=== PATIENT | male | born 1945 | race Caucasian/White ===

== ENCOUNTER 2017-07-09 19:36 | Inpatient (IN) | payer MEDICARE, OTHER, SELFPAY ==
[2017-07-09] VITALS (9 sets, daily range): BP systolic 113–157; BP diastolic 42–89; PULSE 108–122; RESP 14–20; TEMP 36.8–39.4; O2SAT 92–98; BMI 24.9; BMI 24.3
--- NOTE | 2017-07-09 20:05 | EKG12_ITS ---
Test Reason : SOB Blood Pressure : / mmHG Vent. Rate : 115 BPM Atrial Rate : 115 BPM P-R Int : 162 ms QRS Dur : 074 ms QT Int : 306 ms P-R-T Axes : 077 073 067 degrees QTc Int : 423 ms Sinus tachycardia Otherwise normal ECG Confirmed by LANE NARAYANAN ([id number]), deputy editor in chief ARUN SANCHEZ ([id number] on 07/14/2017 1:58:16 PM Referred By: FLORIN Confirmed By:LANE NARAYANAN
--- NOTE | 2017-07-09 20:05 | RAD_ITS ---
STUDY: X-RAY CHEST REASON FOR EXAM: Male, 72 years old. Fever, shortness of breath TECHNIQUE: Frontal and lateral views COMPARISON: October 09, 2015 FINDINGS: The lungs are clear and expanded. There is no demonstrated pleural abnormality. Normal size heart. Normal mediastinum and melissa. Normal visualized pulmonary arteries. Normal visualized aortic arch and descending thoracic aorta. Mild degenerative changes of the thoracic spine. Normal visualized ribs, clavicles, and shoulders. There is no demonstrated abnormality of the visualized soft tissue structures of the upper abdomen. RAD/Chest PA and Lateral IMPRESSION: Normal x-ray examination of the chest. Electronically Signed: Faisal Peralta DO at 21:23 EDT Tel [phone], Service support ,
[2017-07-09 20:23] LABS: Absolute Lymphocyte Count 0.49 X10^3/ul (0.83-4.51); Absolute Neutrophil Count 6.7 X10^3/uL (2.0-7.7); Basophil# 0.01 X10^3/uL; Basophil% 0.1 % (0-1); Eosinophil# 0.02 X10^3/uL; Eosinophils% 0.2 % (0-5); Hematocrit 41.1 % (40-54); Hemoglobin 13.6 g/dl (13.0-16.5); International Normalized Ratio 1.1; Lymphocyte # 0.49 X10^3/ul (4.0); Lymphocyte % 5.8 % (19-41); Mean Corp Hgb Conc 33.1 g/gl (32-36); Mean Corpuscular Hgb 30.5 pg (27.0-32.0); Mean Corpuscular Volume 92.2 fL (80-94); Monocyte# 1.19 X10^3/uL; Monocyte% 14.1 % (0-10); Neutrophil # 6.72 X10^3/uL (2.7-7.7); Neutrophil % 79.7 % (47-70); Partial Thromboplast Time 37.9 Seconds (24.1-36.2); Platelet Count 171 K/mm3 (150-450); Prothrombin Time (Protime)PT. 14.3 SECONDS (11.7-14.9); RBC Distribution Width CV 13.2 % (11.6-14.6); RBC Distribution Width SD 44.2 fl (35.1-43.9); Red Blood Count 4.46 M/mm3 (4.6-6.2); White Blood Count 8.4 K/mm3 (4.4-11.0)
[2017-07-09 20:24] LABS: Differential Indicated SCAN CRITERIA MET; POSITIVE COUNT NO; POSITIVE DIFFERENTIAL YES; POSITIVE MORPHOLOGY NO
[2017-07-09] MEDS: Ipratropium/Albuterol Sulfate 3 ML AMPUL.NEB INHALATION (20:34)
[2017-07-09] MEDS: Albuterol 2.5 MG/3 ML VIAL.NEB. INHALATION ×2 (20:34)
[2017-07-09 20:48] LABS: Differential Comment SCANNED
[2017-07-09] MEDS: 0.9% Normal Saline 1,000 ML 150 ML IV (20:52)
[2017-07-09] MEDS: Acetaminophen 500 MG Tablet 1000 MG PO (20:52)
[2017-07-09 20:56] LABS: AST(SGOT) 14 U/L (15-37); Alanine Aminotransfer ALT/SGPT 14 U/L (16-61); Albumin, Serum 3.5 g/dL (3.2-5.0); Alkaline Phosphatase 52 U/L (45-117); Anion Gap 9 (5-15); BUN 22 mg/dL (7-18); BUN/Creat Ratio 20.8 RATIO (10-20); Calcium,Total 8.5 mg/dL (8.5-10.1); Chloride 105 mmol/L (98-107); Creatinine, Serum 1.06 mg/dL (0.70-1.30); EST Glomerular Filtration Rate 73 mL/min (>60); Est Glom Filt Rate - Afr Amer 89 mL/min (>60); Estimated Creatinine Clearance 66.95 ml/min; Globulin 3.5 g/dL (2.2-4.2); Glucose 100 mg/dL (74-106); Sodium Level 139 mmol/L (136-145)
[2017-07-09 21:35] LABS: Bacteria 0 SEEN /hpf (None Seen); Squamous Epithelial Cells - UA 0 SEEN /hpf (0-5)
[2017-07-09 21:52] LABS: Color, Urine Yellow (Yellow); Glucose, Dipstick Normal (Normal); Ketone-Dipstick Negative (Negative); Leukocyte Esterase-Dipstick 25 /ul (Negative); Nitrite-Dipstick Negative (Negative); Occult Blood-Urine 10 /ul (Negative); Protein-Dipstick Negative (Negative); Urine Bilirubin Dipstick Negative (Negative); Urine Clarity Clear (Clear); Urine Urobilinogen Normal (Normal)
[2017-07-09 22:06] LABS: Mucous, Urine 1+ /hpf (<or=2+)
[2017-07-09 22:07] LABS: White Blood Cells 0-5 SEEN /hpf (0-5)
[2017-07-09 22:08] LABS: Red Blood Cells-Urine 0-5 SEEN /hpf (0-5)
--- NOTE | 2017-07-09 22:22 | PCM.HP.STD ---
Problem List (1) Tobacco use Status: Chronic (2) COPD exacerbation Status: Acute (3) Sepsis Status: Acute Qualifiers: Sepsis type: sepsis due to unspecified organism Qualified Code(s): A41.9 - Sepsis, unspecified organism (4) History of bladder cancer Status: Chronic (5) Chronic obstructive lung disease Status: Chronic Qualifiers: Emphysema type: unspecified History of Present Illness Date of Admission: 07/09/17 Chief Complaint: Dyspnea, cough, wheezing The patient is a 72 y/o M w/ PMHx: Bladder CA s/p resection, Ongoing Tobacco use, Chronic COPD who presents to the [facility] ED on 07/09/17 with history of ongoing dry cough, dyspnea, wheezing with subjective fever and chills as well as mild headache x 24 hours without associated body aches or chills. In the ED work-up includes T 102.9, HR 120, BP 154/89, RR 19, 96% on RA, CBC w/ WBC 8.4, Hgb 13.6, Plts 171 without marked L shift, coags not marked, CMP not marked, LA 1.0, UA not marked, CXR without marked findings. In the ED patient administered NS bolus, tamiflu, solumedrol, azithromcyin, duoneb, albuterol and tylenol with some improvement with tachycardia and fever reduction. Past Medical History Past Medical History (Chronic Problems): Chronic Problems Tobacco use (Chronic) History of tobacco use (Chronic) History of bladder cancer (Chronic) Chronic obstructive lung disease (Chronic) Allergies No Known Allergies Allergy (Verified 07/09/17 19:38) Home Medications: Ambulatory Orders Medication Instructions Recorded Albuterol Aerosols [Ventolin 2.5 mg INHALATION Q4H PRN PRN 07/09/17 Aerosols] Surgical History: - - Bladder CA resection, T+A. Psychiatric History: No pertinent psych hx Lives: Spouse/ Significant Other Smoking Status: Current every day smoker - 1/2 ppd. Tobacco Use: Cigarettes Alcohol: Occasional Drugs: None - *Family History Maternal History Items: - - Mother with history of chronic COPD with concurrent tobacco usage. Paternal History Items: - - Father with history of prostate cancer and chronic COPD with concurrent tobacco use history. Review of Systems Constitutional: Reports: Anorexia, Chills, Fever, Malaise, Weakness, Fatigue. Denies: Weight Change HEENT: Denies: Head Aches, Sinus Congestion, Sinus Drainage Cardiovascular: Reports: Chest Tightness. Denies: Chest Pain, Palpitations Respiratory: Reports: Cough, Shortness of Breath, Shortness of breath at rest, Shortness of breath upon exertion, Wheezing. Denies: Sputum production Gastrointestinal: Denies: Abdominal Pain, Nausea, Vomiting Genitourinary: Denies: Dysuria Musculoskeletal: Denies: Joint Pain, Joint Tenderness Skin: Denies: Rash, Wounds Neurological: Denies: Numbness, Tingling, Focal weakness Psychiatric: Denies: Anxiety, Depression, Homicidal Ideations, Suicidal Ideations Hematologic/ Lymphatic: Denies: Easy Bruising, Easy Bleeding VTE Information - Inpt Only VTE Present on Admission: No VTE Mechan Device Prophylaxis: SCD's VTE Pharm Prophylaxis ordered?: Yes Patient Problems: Active and Suspected Problems COPD exacerbation (Acute) Sepsis (Acute) Subjective: Seated upright in the ED bed, fatigued appearing, some dry coughing. Objective: Physical Examination: General: awake, alert, oriented x 3 and cooperative, seated upright in the ED bed in no apparent distress, fatigued appearing. Skin: normal color, turgor, no icterus, cyanosis. HEENT: AT/NC, EOMI, PERRLA, dry MM, no carotid bruits or JVD noted. Lungs: Severely diffusely diminished BS, dry coughing w/ increased effort, no wheezing, poor movement. Heart: Tachycardic with regular rhythm; no gallop, rub audible. Abdomen: soft, NTTP, ND, normal BS, no HSM. Extremities: no cyanosis, clubbing, or edema. Neurological: patient awake, alert, oriented x 3; cognitive function intact; pupils equally reactive to light and accomodation; cranial nerves II-XII grossly normal, moving all 4 extremities, no focal deficits, strength severely globally decreased secondary to acute presentation. Psychiatric: affect appears fatigued, no acute evidence of depressive or anxiety feelings. - Physical Exam Vital Signs Temp Pulse Resp BP Pulse Ox 102.9 F H 118 H 14 146/70 H 98 07/09/17 20:14 07/09/17 22:06 07/09/17 22:06 07/09/17 22:06 07/09/17 22:06 Oxygen Flow Rate (L/min) 2 Oxygen Delivery Method Room Air Weight: 173 lb 8.061 oz Body Mass Index (BMI) 24.9 Microbiology Past 72 Hours 07/09/17 20:20 Influenza Types A,B Direct FA (PERRY) - Final Mucosa - Nose Laboratory Tests Past 24 Hrs 07/09/17 07/09/17 07/09/17 19:45 19:45 19:45 WBC 8.4 RBC 4.46 L Hgb 13.6 Hct 41.1 MCV 92.2 MCH 30.5 MCHC 33.1 RDW 13.2 RDW Differential 44.2 H Plt Count 171 MPV 11.0 Immature Gran % (Auto) 0.100 Neut % (Auto) 79.7 H Lymph % (Auto) 5.8 L [place] % (Auto) 14.1 H Eos % (Auto) 0.2 Baso % (Auto) 0.1 Absolute Neuts (auto) 6.7 Absolute Lymphs (auto) 0.49 L Total Counted Not Reportable Differential Comment SCANNED PT 14.3 INR 1.1 APTT 37.9 H Sodium 139 Potassium 4.0 Chloride 105 Carbon Dioxide 25.0 Anion Gap 9 BUN 22 H Creatinine 1.06 Estim Creat Clear Calc 66.95 Est GFR (MDRD) Af Amer 89 Est GFR (MDRD) Non-Af 73 BUN/Creatinine Ratio 20.8 H Glucose 100 Lactic Acid Calcium 8.5 Total Bilirubin 0.30 AST 14 L ALT 14 L Alkaline Phosphatase 52 Troponin I < 0.02 Total Protein 7.0 Albumin 3.5 Globulin 3.5 Albumin/Globulin Ratio 1.0 Urine Color Urine Clarity Urine pH Ur Specific [place] Urine Protein Urine Glucose (UA) Urine Ketones Urine Occult Blood Urine Nitrite Urine Bilirubin Urine Urobilinogen Ur Leukocyte Esterase Urine RBC Urine WBC Ur Squamous Epith Cells Urine Bacteria Urine Mucus 07/09/17 07/09/17 20:10 Unknown WBC RBC Hgb Hct MCV MCH MCHC RDW RDW Differential Plt Count MPV Immature Gran % (Auto) Neut % (Auto) Lymph % (Auto) [place] % (Auto) Eos % (Auto) Baso % (Auto) Absolute Neuts (auto) Absolute Lymphs (auto) Total Counted Differential Comment PT INR APTT Sodium Potassium Chloride Carbon Dioxide Anion Gap BUN Creatinine Estim Creat Clear Calc Est GFR (MDRD) Af Amer Est GFR (MDRD) Non-Af BUN/Creatinine Ratio Glucose Lactic Acid 1.0 Calcium Total Bilirubin AST ALT Alkaline Phosphatase Troponin I Total Protein Albumin Globulin Albumin/Globulin Ratio Urine Color Yellow Urine Clarity Clear Urine pH 5.0 Ur Specific [place] 1.020 Urine Protein Negative Urine Glucose (UA) Normal Urine Ketones Negative Urine Occult Blood 10 H Urine Nitrite Negative Urine Bilirubin Negative Urine Urobilinogen Normal Ur Leukocyte Esterase 25 H Urine RBC 0-5 SEEN Urine WBC 0-5 SEEN Ur Squamous Epith Cells 0 SEEN Urine Bacteria 0 SEEN Urine Mucus 1+ Assessment/Plan Active and Suspected Problems COPD exacerbation (Acute) Sepsis (Acute) The patient is a 72 y/o M w/ PMHx: Bladder CA s/p resection, Ongoing Tobacco use, Chronic COPD who presents to the [facility] ED on 07/09/17 with history of ongoing dry cough, dyspnea, wheezing with subjective fever and chills as well as mild headache x 24 hours without associated body aches or chills. (1) Acute Sepsis secondary to Acute on chronic COPD exacerbation: CXR w/ chronic changes, CBC on admission w/o marked WBC elevation or shift. Will admit to PCU, maintain on oxygen with wean as tolerated to room air, continue ATC duonebs, PRN albuterol, IV methylprednisolone, HOB, IS parameters, IV Azithromcyin with pending sputum cultures, maintain on tamiflu pending respiratory viral panel results, if unremarkable will d/c. (2) Tobacco Abuse: Encouraged cessation, inpatient consultation per RT, NR if desired. (3) Bladder Cancer, Hx: s/p resection, stable. (4) DVT Prophylaxis: SCDs, lovenox. Code Visit Inpatient E&M: 31507 Init Hosp L3
--- NOTE | 2017-07-09 22:25 | HP.PCM_ITS ---
Problem List (1) Tobacco use Status: Chronic (2) COPD exacerbation Status: Acute (3) Sepsis Status: Acute Qualifiers: Sepsis type: sepsis due to unspecified organism Qualified Code(s): A41.9 - Sepsis, unspecified organism (4) History of bladder cancer Status: Chronic (5) Chronic obstructive lung disease Status: Chronic Qualifiers: Emphysema type: unspecified History of Present Illness Date of Admission: 07/09/17 Chief Complaint: Dyspnea, cough, wheezing The patient is a 72 y/o M w/ PMHx: Bladder CA s/p resection, Ongoing Tobacco use , Chronic COPD who presents to the [facility] ED on 07/09/17 with history of ongoing dry cough, dyspnea, wheezing with subjective fever and chills as well as mild headache x 24 hours without associated body aches or chills. In the ED work-up includes T 102.9, HR 120, BP 154/89, RR 19, 96% on RA, CBC w/ WBC 8.4, Hgb 13.6 , Plts 171 without marked L shift, coags not marked, CMP not marked, LA 1.0, UA not marked, CXR without marked findings. In the ED patient administered NS bolus , tamiflu, solumedrol, azithromcyin, duoneb, albuterol and tylenol with some improvement with tachycardia and fever reduction. Past Medical History Past Medical History (Chronic Problems): Chronic Problems Tobacco use (Chronic) History of tobacco use (Chronic) History of bladder cancer (Chronic) Chronic obstructive lung disease (Chronic) Allergies No Known Allergies Allergy (Verified 07/09/17 19:38) Home Medications: Ambulatory Orders Medication Instructions Recorded Albuterol Aerosols [Ventolin 2.5 mg INHALATION Q4H PRN PRN 07/09/17 Aerosols] Surgical History: - - Bladder CA resection, T+A. Psychiatric History: No pertinent psych hx Lives: Spouse/ Significant Other Smoking Status: Current every day smoker - 1/2 ppd. Tobacco Use: Cigarettes Alcohol: Occasional Drugs: None - *Family History Maternal History Items: - - Mother with history of chronic COPD with concurrent tobacco usage. Paternal History Items: - - Father with history of prostate cancer and chronic COPD with concurrent tobacco use history. Review of Systems Constitutional: Reports: Anorexia, Chills, Fever, Malaise, Weakness, Fatigue. Denies: Weight Change HEENT: Denies: Head Aches, Sinus Congestion, Sinus Drainage Cardiovascular: Reports: Chest Tightness. Denies: Chest Pain, Palpitations Respiratory: Reports: Cough, Shortness of Breath, Shortness of breath at rest, Shortness of breath upon exertion, Wheezing. Denies: Sputum production Gastrointestinal: Denies: Abdominal Pain, Nausea, Vomiting Genitourinary: Denies: Dysuria Musculoskeletal: Denies: Joint Pain, Joint Tenderness Skin: Denies: Rash, Wounds Neurological: Denies: Numbness, Tingling, Focal weakness Psychiatric: Denies: Anxiety, Depression, Homicidal Ideations, Suicidal Ideations Hematologic/ Lymphatic: Denies: Easy Bruising, Easy Bleeding VTE Information - Inpt Only VTE Present on Admission: No VTE Mechan Device Prophylaxis: SCD's VTE Pharm Prophylaxis ordered?: Yes Patient Problems: Active and Suspected Problems COPD exacerbation (Acute) Sepsis (Acute) Subjective: Seated upright in the ED bed, fatigued appearing, some dry coughing. Objective: Physical Examination: General: awake, alert, oriented x 3 and cooperative, seated upright in the ED bed in no apparent distress, fatigued appearing. Skin: normal color, turgor, no icterus, cyanosis. HEENT: AT/NC, EOMI, PERRLA, dry MM, no carotid bruits or JVD noted. Lungs: Severely diffusely diminished BS, dry coughing w/ increased effort, no wheezing, poor movement. Heart: Tachycardic with regular rhythm; no gallop, rub audible. Abdomen: soft, NTTP, ND, normal BS, no HSM. Extremities: no cyanosis, clubbing, or edema. Neurological: patient awake, alert, oriented x 3; cognitive function intact; pupils equally reactive to light and accomodation; cranial nerves II-XII grossly normal, moving all 4 extremities, no focal deficits, strength severely globally decreased secondary to acute presentation. Psychiatric: affect appears fatigued, no acute evidence of depressive or anxiety feelings. - Physical Exam Vital Signs Temp Pulse Resp BP Pulse Ox 102.9 F H 118 H 14 146/70 H 98 07/09/17 20:14 07/09/17 22:06 07/09/17 22:06 07/09/17 22:06 07/09/17 22:06 Oxygen Flow Rate (L/min) 2 Oxygen Delivery Method Room Air Weight: 173 lb 8.061 oz Body Mass Index (BMI) 24.9 Microbiology Past 72 Hours 07/09/17 20:20 Influenza Types A,B Direct FA (PERRY) - Final Mucosa - Nose Laboratory Tests Past 24 Hrs 07/09/17 07/09/17 07/09/17 19:45 19:45 19:45 WBC 8.4 RBC 4.46 L Hgb 13.6 Hct 41.1 MCV 92.2 MCH 30.5 MCHC 33.1 RDW 13.2 RDW Differential 44.2 H Plt Count 171 MPV 11.0 Immature Gran % (Auto) 0.100 Neut % (Auto) 79.7 H Lymph % (Auto) 5.8 L [place] % (Auto) 14.1 H Eos % (Auto) 0.2 Baso % (Auto) 0.1 Absolute Neuts (auto) 6.7 Absolute Lymphs (auto) 0.49 L Total Counted Not Reportable Differential Comment SCANNED PT 14.3 INR 1.1 APTT 37.9 H Sodium 139 Potassium 4.0 Chloride 105 Carbon Dioxide 25.0 Anion Gap 9 BUN 22 H Creatinine 1.06 Estim Creat Clear Calc 66.95 Est GFR (MDRD) Af Amer 89 Est GFR (MDRD) Non-Af 73 BUN/Creatinine Ratio 20.8 H Glucose 100 Lactic Acid Calcium 8.5 Total Bilirubin 0.30 AST 14 L ALT 14 L Alkaline Phosphatase 52 Troponin I < 0.02 Total Protein 7.0 Albumin 3.5 Globulin 3.5 Albumin/Globulin Ratio 1.0 Urine Color Urine Clarity Urine pH Ur Specific [place] Urine Protein Urine Glucose (UA) Urine Ketones Urine Occult Blood Urine Nitrite Urine Bilirubin Urine Urobilinogen Ur Leukocyte Esterase Urine RBC Urine WBC Ur Squamous Epith Cells Urine Bacteria Urine Mucus 07/09/17 07/09/17 20:10 Unknown WBC RBC Hgb Hct MCV MCH MCHC RDW RDW Differential Plt Count MPV Immature Gran % (Auto) Neut % (Auto) Lymph % (Auto) [place] % (Auto) Eos % (Auto) Baso % (Auto) Absolute Neuts (auto) Absolute Lymphs (auto) Total Counted Differential Comment PT INR APTT Sodium Potassium Chloride Carbon Dioxide Anion Gap BUN Creatinine Estim Creat Clear Calc Est GFR (MDRD) Af Amer Est GFR (MDRD) Non-Af BUN/Creatinine Ratio Glucose Lactic Acid 1.0 Calcium Total Bilirubin AST ALT Alkaline Phosphatase Troponin I Total Protein Albumin Globulin Albumin/Globulin Ratio Urine Color Yellow Urine Clarity Clear Urine pH 5.0 Ur Specific [place] 1.020 Urine Protein Negative Urine Glucose (UA) Normal Urine Ketones Negative Urine Occult Blood 10 H Urine Nitrite Negative Urine Bilirubin Negative Urine Urobilinogen Normal Ur Leukocyte Esterase 25 H Urine RBC 0-5 SEEN Urine WBC 0-5 SEEN Ur Squamous Epith Cells 0 SEEN Urine Bacteria 0 SEEN Urine Mucus 1+ Assessment/Plan Active and Suspected Problems COPD exacerbation (Acute) Sepsis (Acute) The patient is a 72 y/o M w/ PMHx: Bladder CA s/p resection, Ongoing Tobacco use , Chronic COPD who presents to the [facility] ED on 07/09/17 with history of ongoing dry cough, dyspnea, wheezing with subjective fever and chills as well as mild headache x 24 hours without associated body aches or chills. (1) Acute Sepsis secondary to Acute on chronic COPD exacerbation: CXR w/ chronic changes, CBC on admission w/o marked WBC elevation or shift. Will admit to PCU, maintain on oxygen with wean as tolerated to room air, continue ATC duonebs, PRN albuterol, IV methylprednisolone, HOB, IS parameters, IV Azithromcyin with pending sputum cultures, maintain on tamiflu pending respiratory viral panel results, if unremarkable will d/c. (2) Tobacco Abuse: Encouraged cessation, inpatient consultation per RT, NR if desired. (3) Bladder Cancer, Hx: s/p resection, stable. (4) DVT Prophylaxis: SCDs, lovenox. Code Visit Inpatient E&M: 00635 Init Hosp L3
[2017-07-09] MEDS: Oseltamivir Phosphate 75 MG Capsule PO (22:49)
[2017-07-09] MEDS: MethylPREDNISolone 125 MG/2 ML Vial IV (22:49)
--- NOTE | 2017-07-09 23:57 | ED.VISSUMM ---
- ER Visit Summary Date of Service: 07/09/17 Chief Complaint: Shortness of breath History of Present Illness: The patient is a 72 M who states that yesterday afternoon he had a gradual onset of shortness of breath. He notes chills rhinorrhea cough nausea. Denies any headache or generalized myalgias. He notes no sputum production. He has a history of COPD and is an avid smoker. He does not wear oxygen at home. Physical Examination: Patient is febrile at 102.9. Heart rate is 121. Respirations are 17. 93% on 2-1/2 L at home. Blood pressure 157/42. Gen: Well-nourished well-developed Head: Normocephalic atraumatic Eyes: Perrl EOMI ENT: TMs clear no rhinorrhea moist mucous membranes Neck: Supple no lymphadenopathy no JVD nontender CVS: Tachycardic regular rate rhythm no murmurs normal S1-S2 Respiratory: No distress patient has expiratory wheezing I laterally chest nontender Abdomen: Soft nontender nondistended normal bowel sounds no masses Back: Nontender Extremity: Nontender no edema Skin: Normal color no rash Neuro: alert orientated ?3 CN II-XII intact normal strength sensation reflexes gait cerebellar Psych: Normal affect normal mood Test Results: Sinus rhythm at a rate of 115. White count 8.4. BUN is 22 and creatinine 1.06. Troponin less than 0.02. Lactic acid is 1. Rapid influenza is negative. Normal coags. Chest x-ray showed chronic changes Emergency Department Course and Treatment: Received breathing treatments supplemental oxygen. Patient continues to have expiratory wheezing. He received Tylenol to reduce his fever continues to be tachycardic. Blood cultures were obtained the patient received a dose of azithromycin and Solu-Medrol. Also will send off serum to flu. Respiratory molecular panel ordered after discussion with hospitalist. Also given a dose of Tamiflu. Impression: 1. COPD exacerbation 2. Viral syndrome This note was generated with [employer] dictation software. It may contain incorrect words, spelling, and punctuation that were not noted in review of the chart prior to signing ED Disposition - Plan for ED Patient: Disposition: Acute Care Hospital [facility] Chief Complaint: Shortness of Breath
[2017-07-10] VITALS (15 sets, daily range): BP systolic 129–146; BP diastolic 70–77; PULSE 89–118; RESP 14–20; TEMP 36.7–37.1; O2SAT 92–98
--- NOTE | 2017-07-10 | ED.DCSUM_ITS ---
- ER Visit Summary Date of Service: 07/09/17 Chief Complaint: Shortness of breath History of Present Illness: The patient is a 72 M who states that yesterday afternoon he had a gradual onset of shortness of breath. He notes chills rhinorrhea cough nausea. Denies any headache or generalized myalgias. He notes no sputum production. He has a history of COPD and is an avid smoker. He does not wear oxygen at home. Physical Examination: Patient is febrile at 102.9. Heart rate is 121. Respirations are 17. 93% on 2-1/2 L at home. Blood pressure 157/42. Gen: Well-nourished well-developed Head: Normocephalic atraumatic Eyes: Perrl EOMI ENT: TMs clear no rhinorrhea moist mucous membranes Neck: Supple no lymphadenopathy no JVD nontender CVS: Tachycardic regular rate rhythm no murmurs normal S1-S2 Respiratory: No distress patient has expiratory wheezing I laterally chest nontender Abdomen: Soft nontender nondistended normal bowel sounds no masses Back: Nontender Extremity: Nontender no edema Skin: Normal color no rash Neuro: alert orientated ?3 CN II-XII intact normal strength sensation reflexes gait cerebellar Psych: Normal affect normal mood Test Results: Sinus rhythm at a rate of 115. White count 8.4. BUN is 22 and creatinine 1.06. Troponin less than 0.02. Lactic acid is 1. Rapid influenza is negative. Normal coags. Chest x-ray showed chronic changes Emergency Department Course and Treatment: Received breathing treatments supplemental oxygen. Patient continues to have expiratory wheezing. He received Tylenol to reduce his fever continues to be tachycardic. Blood cultures were obtained the patient received a dose of azithromycin and Solu- Medrol. Also will send off serum to flu. Respiratory molecular panel ordered after discussion with hospitalist. Also given a dose of Tamiflu. Impression: 1. COPD exacerbation 2. Viral syndrome This note was generated with Add2[employer] dictation software. It may contain incorrect words, spelling, and punctuation that were not noted in review of the chart prior to signing ED Disposition - Plan for ED Patient: Disposition: Acute Care Hospital [facility] Chief Complaint: Shortness of Breath
[2017-07-10 00:07] LABS: Magnesium 1.8 mg/dL (1.6-2.6)
[2017-07-10] MEDS: 0.9% Normal Saline 1,000 ML 125 ML IV ×2 (01:44→07:45)
[2017-07-10] MEDS: 0.9% NaCl Peripheral Flush Adult/Peds IV ×3 (04:54→21:49)
[2017-07-10 06:24] LABS: ALB/GLOB Ratio 0.9 RATIO (0.9-2.4); AST(SGOT) 19 U/L (15-37); Alanine Aminotransfer ALT/SGPT 15 U/L (16-61); Albumin, Serum 3.2 g/dL (3.2-5.0); Alkaline Phosphatase 45 U/L (45-117); Anion Gap 8 (5-15); BUN 19 mg/dL (7-18); BUN/Creat Ratio 18.1 RATIO (10-20); Calcium,Total 8.3 mg/dL (8.5-10.1); Chloride 105 mmol/L (98-107); Creatinine, Serum 1.05 mg/dL (0.70-1.30); EST Glomerular Filtration Rate 74 mL/min (>60); Est Glom Filt Rate - Afr Amer 90 mL/min (>60); Estimated Creatinine Clearance 67.59 ml/min; Globulin 3.4 g/dL (2.2-4.2); Glucose 153 mg/dL (74-106); Potassium 4.2 mmol/L (3.5-5.1); Protein, Total 6.6 g/dL (6.4-8.2); Sodium Level 139 mmol/L (136-145)
[2017-07-10 06:35] LABS: Absolute Lymphocyte Count 0.29 X10^3/ul (0.83-4.51); Absolute Neutrophil Count 6.6 X10^3/uL (2.0-7.7); Basophil# 0.01 X10^3/uL; Basophil% 0.1 % (0-1); Hematocrit 39.6 % (40-54); Hemoglobin 13.2 g/dl (13.0-16.5); Lymphocyte # 0.29 X10^3/ul (4.0); Lymphocyte % 4.1 % (19-41); Mean Corp Hgb Conc 33.3 g/gl (32-36); Mean Corpuscular Hgb 30.8 pg (27.0-32.0); Mean Corpuscular Volume 92.5 fL (80-94); Monocyte# 0.14 X10^3/uL; Neutrophil # 6.62 X10^3/uL (2.7-7.7); Neutrophil % 93.7 % (47-70); Platelet Count 147 K/mm3 (150-450); RBC Distribution Width CV 13.2 % (11.6-14.6); RBC Distribution Width SD 44.3 fl (35.1-43.9); Red Blood Count 4.28 M/mm3 (4.6-6.2); White Blood Count 7.1 K/mm3 (4.4-11.0)
[2017-07-10 06:36] LABS: Differential Indicated SCAN CRITERIA MET; POSITIVE COUNT NO; POSITIVE DIFFERENTIAL YES; POSITIVE MORPHOLOGY NO
[2017-07-10] MEDS: Ipratropium/Albuterol Sulfate 3 ML AMPUL.NEB INHALATION ×4 (06:43→22:58)
[2017-07-10] MEDS: Enoxaparin 40 MG/0.4 ML Syringe SC (09:43)
[2017-07-10] MEDS: Famotidine 20 MG Tablet PO ×2 (09:43→21:49)
[2017-07-10] MEDS: Oseltamivir Phosphate 75 MG Capsule PO (09:43)
[2017-07-10] MEDS: guaiFENesin 1,200 MG Tablet 1200 MG PO ×2 (09:43→21:49)
--- NOTE | 2017-07-10 14:14 | PN_ITS ---
<Miriam Garcia - Last Filed: 07/10/17 14:16> Subjective: Patient seen and examined. States shortness of breath is improved since admission. Complains of continued cough which is beginning to be productive of yellow sputum. Denies further fever, chills. Denies other complaints. - Physical Exam General: Alert, Oriented x3, Cooperative, No apparent distress HEENT: Atraumatic, PERRLA, EOMI, Normocephalic Neck: Supple, No JVD, Negative Carotid Bruits Lungs: Clear to auscultation, Diminished Cardiovascular: Regular Rhythm, Normal S1, Normal S2, No murmurs, Tachycardic Abdomen: Bowel Sounds Present, Soft, Non Tender, Non-Distended Extremities: No clubbing, No cyanosis, No edema, Capillary Refill Less than 3 Seconds Skin: No rashes, No breakdown Musculoskeletal: No Tenderness to Palpation of Joints or Extremities Neurological: Cranial nerves II-XII grossly intact, Neuro grossly intact Psych/Mental Status: Normal Affect, Appropriate Vital Signs Temp Pulse Resp BP Pulse Ox 98.6 F 112 H 20 H 140/70 H 94 07/10/17 09:50 07/10/17 11:33 07/10/17 11:00 07/10/17 09:50 07/10/17 09:50 Oxygen Flow Rate (L/min) 2 Oxygen Delivery Method Room Air Weight: 76.7 kg Body Mass Index (BMI) 24.3 Intake and Output for Last 24 Hours 07/08/17 07/09/17 07/10/17 23:59 23:59 23:59 Intake Total 2006 Balance 2006 Laboratory Tests Past 24 Hrs 07/09/17 07/10/17 07/10/17 Unknown 05:28 05:28 WBC 7.1 RBC 4.28 L Hgb 13.2 Hct 39.6 L MCV 92.5 MCH 30.8 MCHC 33.3 RDW 13.2 RDW Differential 44.3 H Plt Count 147 L MPV 11.0 Immature Gran % (Auto) 0.100 Neut % (Auto) 93.7 H Lymph % (Auto) 4.1 L Graves % (Auto) 2.0 Eos % (Auto) 0.0 Baso % (Auto) 0.1 Absolute Neuts (auto) 6.6 Absolute Lymphs (auto) 0.29 L Total Counted Not Reportable Sodium 139 Potassium 4.2 Chloride 105 Carbon Dioxide 26.0 Anion Gap 8 BUN 19 H Creatinine 1.05 Estim Creat Clear Calc 67.59 Est GFR (MDRD) Af Amer 90 Est GFR (MDRD) Non-Af 74 BUN/Creatinine Ratio 18.1 Glucose 153 H Calcium 8.3 L Total Bilirubin 0.40 AST 19 ALT 15 L Alkaline Phosphatase 45 Total Protein 6.6 Albumin 3.2 Globulin 3.4 Albumin/Globulin Ratio 0.9 Urine Color Yellow Urine Clarity Clear Urine pH 5.0 Ur Specific [place] 1.020 Urine Protein Negative Urine Glucose (UA) Normal Urine Ketones Negative Urine Occult Blood 10 H Urine Nitrite Negative Urine Bilirubin Negative Urine Urobilinogen Normal Ur Leukocyte Esterase 25 H Urine RBC 0-5 SEEN Urine WBC 0-5 SEEN Ur Squamous Epith Cells 0 SEEN Urine Bacteria 0 SEEN Urine Mucus 1+ Assessment/Plan Patient is a 72-year-old male admitted 07/09/2017 due to dyspnea, cough, wheezing. He has a past medical history of bladder cancer status post resection , tobacco dependence, chronic COPD. 1. Acute on chronic COPD exacerbation with associated acute hypoxia- respiratory panel negative. Discontinue Tamiflu. Continue albuterol and DuoNeb aerosol. Continue IV Solu-Medrol. Sputum culture sent and pending. Continue azithromycin pending sputum culture. Continue Mucinex twice daily. Blood cultures pending. Patient now afebrile. He did present with a temperature of 102.9 on admission and tachycardia. Did not meet other sepsis criteria. Continue Tylenol as needed for fever. Patient does not follow with pulmonary as outpatient. Recommend follow-up with pulmonary medicine as outpatient for pulmonary function testing. He is only on albuterol inhaler as needed at home. Patient is now stable on room air. He will need walking pulse ox prior to discharge. Chest x-ray on admission unremarkable. Anticipate transition to oral prednisone tomorrow with possible discharge if continued improvement. 2. Tobacco dependence-encourage smoking cessation. Nicotine replacement patch if desired. 3. History of bladder cancer status post resection DVT prophylaxis-Lovenox subcu. This patient was seen by G[facility] Holland under the supervision of Dr. Pineda. <Damaris Pindea - Last Filed: 07/13/17 20:46> - Physical Exam Vital Signs Temp Pulse Resp BP Pulse Ox 97.9 F 99 16 140/84 H 97 07/11/17 09:56 07/11/17 10:36 07/11/17 10:36 07/11/17 09:56 07/11/17 10:04 Oxygen Flow Rate (L/min) 2 Oxygen Delivery Method Room Air Weight: 169 lb 1.513 oz Body Mass Index (BMI) 24.3 Intake and Output for Last 24 Hours 07/11/17 07/12/17 07/13/17 23:59 23:59 23:59 Intake Total 60 / 60 Balance 60 / 60 Microbiology Past 72 Hours 07/10/17 07:45 Gram Stain - Final Sputum, Expectorated/Coughed Respiratory Culture - Final Code Visit Inpatient E&M: 54135 Subs Hosp L2
--- NOTE | 2017-07-10 15:50 | CASEMGMT ---
Face to Face with patient for initial transition planning/care coordination assessment. HILLARY PLEITEZ introduced self and role at [facility], pt voices understanding and consents to assessment at this time. Pt sitting up on side of bed in no distress at this time. Pt A/Ox4 at this time and answers all questions appropriately at this time. Care providers, pharmacy, and demographics verified. See attached link. Pt voices no further concerns/needs at this time. Advised pt to ask for CM if any further questions/concerns/needs arise, voices understanding. PLAN: [place] HILLARY PLEITEZ
[2017-07-11] VITALS (7 sets, daily range): BP systolic 124–140; BP diastolic 65–84; PULSE 75–99; RESP 16–18; TEMP 36.3–36.6; O2SAT 94–97
[2017-07-11] MEDS: 0.9% NaCl Peripheral Flush Adult/Peds IV (05:37)
[2017-07-11] MEDS: Ipratropium/Albuterol Sulfate 3 ML AMPUL.NEB INHALATION ×2 (06:47→10:36)
[2017-07-11] MEDS: guaiFENesin 1,200 MG Tablet 1200 MG PO (09:51)
[2017-07-11] MEDS: Famotidine 20 MG Tablet PO (09:51)
--- NOTE | 2017-07-11 10:07 | DCINST_ITS ---
- Discharge Diagnoses Current Active Problems: Current Active and Chronic Problems Tobacco use (Chronic) COPD exacerbation (Acute) Sepsis (Acute) You will use the following diet at home:: No restrictions Discharge Activity: Return to Normal Activity Call your doctor if you observe: Shortness of breath, Dizziness, Fainting spells , Chest pain, Increased palpitations (irregular heartbeat) Instructions: Chronic Lung Disease: Tips for Quitting Smoking Allergies/Adverse Reactions: Allergies No Known Allergies Allergy (Verified 07/09/17 19:38) Medications to take at Discharge Albuterol Aerosols [Ventolin Aerosols] 2.5 mg INHALATION Q4H PRN PRN 07/09/17 Azithromycin [Zithromax] 250 mg PO DAILY #4 tab 07/11/17 Prednisone See Taper PO DAILY #30 tab 07/11/17 The following prescriptions were given: Azithromycin [Zithromax] 250 mg PO DAILY #4 tab Prednisone See Taper PO DAILY #30 tab Primary Care Physician: Regis Souza MD [Primary Care Provider] - Please follow up with your Primary Care Physician in: 1 Week Please Follow Up With: Murtaza Tolentino MD - May see [employer]ER When: 1-2 Weeks to establish with Pulmonary Medicine. Proposed Discharge Date: 07/11/17
--- NOTE | 2017-07-11 10:07 | PCM.DC.SUM ---
<Miriam Garcia - Last Filed: 07/11/17 10:32> Discharge Date and Diagnosis Date of Admission: 07/09/17 Date of Discharge: 07/11/17 - Primary Discharge Diagnosis Active and Suspected Problems 1. Acute on chronic COPD exacerbation with associated acute hypoxia - Secondary Discharge Diagnosis Chronic Problems Tobacco use (Chronic) History of tobacco use (Chronic) History of bladder cancer (Chronic) Chronic obstructive lung disease (Chronic) Hospital Course and Treatment Imaging Results: Diagnostic Data Chest X-Ray 07/09/17 20:05 IMPRESSION: Normal x-ray examination of the chest. Electronically Signed: Faisal Peralta DO at 21:23 EDT Tel [phone], Service support , Operations: None Procedures: None Summary of Care Provided: Patient is a 72-year-old male admitted 07/09/2017 due to dyspnea, cough, wheezing. He has a past medical history of bladder cancer status post resection, tobacco dependence, chronic COPD. 1. Acute on chronic COPD exacerbation with associated acute hypoxia-respiratory panel negative. Patient received IV Solu-Medrol during admission and will be discharged with prednisone taper. Sputum culture pending at discharge. No leukocytosis. Afebrile. Patient reports intermittent productive cough with yellow sputum. He received 1 dose of IV azithromycin and will be discharged with azithromycin 250 mg for 4 days given fever on admission and report of yellow sputum production. Patient will continue home albuterol aerosol as needed for shortness of breath. He is unsure if he has ever had formal testing for COPD. He has smoked since age of 16 and is currently a half pack per day smoker. Encourage smoking cessation. Discussed with patient establishing with pulmonary medicine and completing pulmonary function testing as outpatient. Patient is agreeable. Patient was weaned off of oxygen and stable on room air. Walking pulse ox completed prior to discharge and patient did not require supplemental oxygen with ambulation. Chest x-ray on admission unremarkable. 2. Tobacco dependence-encourage smoking cessation. Patient declines nicotine replacement patch at discharge. States he plans on quitting cold turkey. 3. History of bladder cancer status post resection General: Alert, Oriented x3, Cooperative, No apparent distress HEENT: Atraumatic, PERRLA, EOMI, Normocephalic Neck: Supple, No JVD, Negative Carotid Bruits Lungs: Clear to auscultation, Diminished Cardiovascular: Regular Rhythm, regular rate, normal S1, Normal S2, No murmurs Abdomen: Bowel Sounds Present, Soft, Non Tender, Non-Distended Extremities: No clubbing, No cyanosis, No edema, Capillary Refill Less than 3 Seconds Skin: No rashes, No breakdown Musculoskeletal: No Tenderness to Palpation of Joints or Extremities Neurological: Cranial nerves II-XII grossly intact, Neuro grossly intact Psych/Mental Status: Normal Affect, Appropriate Patient seen and examined prior to discharge. Physical assessment as noted above. Patient stable for discharge home with recommendations as noted above. This patient was seen by G[facility] Holland under the supervision of Dr. Pineda. Discharge Diet: No Restrictions Discharge Activity: Return to Normal Activity Call your doctor if you observe: Shortness of breath, Dizziness, Fainting spells, Chest pain, Increased palpitations (irregular heartbeat) Home Medications: Medications to take at Discharge Albuterol Aerosols [Ventolin Aerosols] 2.5 mg INHALATION Q4H PRN PRN 07/09/17 Budesonide/Formoterol 160/4.5 [Symbicort 160/4.5 Mcg Inhaler (SP)] 2 puff INHALATION BID #1 inhaler 07/21/17 Guaifenesin [Mucinex] 1,200 mg PO BID #14 tab 07/21/17 Levalbuterol HCl [Xopenex] 0.63 mg INHALATION Q4H PRN PRN #30 vial.neb 07/21/17 Prednisone See Taper PO DAILY #30 tab 07/21/17 Primary Care Physician: Regis Souza MD [Primary Care Provider] - Please follow up with your Primary Care Physician in: 1 Week Please Follow Up With: Murtaza Tolentino MD - May see OFFBEARER When: 1-2 Weeks to establish with Pulmonary Medicine. Patient Instructions: Chronic Lung Disease: Tips for Quitting Smoking Disposition: Home Minutes spent on discharge:: 35 Patient Condition:: Stable Meaningful Use Info Meaningful Use Diagnoses (Choose all that apply): None applicable <Damaris Pineda - Last Filed: 07/21/17 19:29> Discharge Date and Diagnosis - Secondary Discharge Diagnosis Chronic Problems Tobacco use (Chronic) History of tobacco use (Chronic) History of bladder cancer (Chronic) Chronic obstructive lung disease (Chronic) Hospital Course and Treatment Summary of Care Provided: The patient is a 72 year old M [] Code Visit This patient was seen in conjunction with Miriam Garcia NP. I have independently interviewed and examined the patient and reviewed pertinent historical, laboratory and other data. Please refer to discharge summary note for details of this patient's presentation, findings and recommendations. I have reviewed Miriam's note and concur fully with documented findings. In brief, patient is a 89YO male admitted with acute exacerbation of COPD in a patient who has smoked since the age of 16 and continues to smoke 1/2 PPD depsite having a hx of bladder CA and COPD. CXR at admission had no infiltrates and no PVC or pleural effusions. WBC at admission was Normal and he had no further fevers after he was transferred from the Er to PCU. Influenza swab, respiratory panel and the sputum culture were all negative. He responded well to ATC bronchodilators, high dose steroids and smoking cessation. He was treated with Azithromycin for acute bronchitis in a pt with COPD and 4+ WBC's in the sputum. I suspect he had a viral URI. Walking oximetry prior to DC di not reveal a need for home oxygen at DC. Smoking cessation counselling was given multiple times in the hospital by different individuals and he agreed to follow up with the pulmonary clinic post DC to arrange formal PFT's. Physical examination: Lungs - CTA Heart - RRR, No MM, no gallop and no rub no peripheral edema no rashes Abd - soft, NT, ND, nl BS's Assessment: 1. acute exacerbation of COPD 2. ongoing tobacco dependence I have discussed my assessment with Miriam and orders have been written. Inpatient E&M: 30421 Disch Hosp
--- NOTE | 2017-07-11 10:14 | DS.PCM_ITS ---
<Miriam Garcia - Last Filed: 07/11/17 10:32> Discharge Date and Diagnosis Date of Admission: 07/09/17 Date of Discharge: 07/11/17 - Primary Discharge Diagnosis Active and Suspected Problems 1. Acute on chronic COPD exacerbation with associated acute hypoxia - Secondary Discharge Diagnosis Chronic Problems Tobacco use (Chronic) History of tobacco use (Chronic) History of bladder cancer (Chronic) Chronic obstructive lung disease (Chronic) Hospital Course and Treatment Imaging Results: Diagnostic Data Chest X-Ray 07/09/17 20:05 IMPRESSION: Normal x-ray examination of the chest. Electronically Signed: Faisal Peralta DO at 21:23 EDT Tel [phone], Service support , Operations: None Procedures: None Summary of Care Provided: Patient is a 72-year-old male admitted 07/09/2017 due to dyspnea, cough, wheezing. He has a past medical history of bladder cancer status post resection , tobacco dependence, chronic COPD. 1. Acute on chronic COPD exacerbation with associated acute hypoxia- respiratory panel negative. Patient received IV Solu-Medrol during admission and will be discharged with prednisone taper. Sputum culture pending at discharge. No leukocytosis. Afebrile. Patient reports intermittent productive cough with yellow sputum. He received 1 dose of IV azithromycin and will be discharged with azithromycin 250 mg for 4 days given fever on admission and report of yellow sputum production. Patient will continue home albuterol aerosol as needed for shortness of breath. He is unsure if he has ever had formal testing for COPD. He has smoked since age of 16 and is currently a half pack per day smoker. Encourage smoking cessation. Discussed with patient establishing with pulmonary medicine and completing pulmonary function testing as outpatient. Patient is agreeable. Patient was weaned off of oxygen and stable on room air. Walking pulse ox completed prior to discharge and patient did not require supplemental oxygen with ambulation. Chest x-ray on admission unremarkable. 2. Tobacco dependence-encourage smoking cessation. Patient declines nicotine replacement patch at discharge. States he plans on quitting cold turkey. 3. History of bladder cancer status post resection General: Alert, Oriented x3, Cooperative, No apparent distress HEENT: Atraumatic, PERRLA, EOMI, Normocephalic Neck: Supple, No JVD, Negative Carotid Bruits Lungs: Clear to auscultation, Diminished Cardiovascular: Regular Rhythm, regular rate, normal S1, Normal S2, No murmurs Abdomen: Bowel Sounds Present, Soft, Non Tender, Non-Distended Extremities: No clubbing, No cyanosis, No edema, Capillary Refill Less than 3 Seconds Skin: No rashes, No breakdown Musculoskeletal: No Tenderness to Palpation of Joints or Extremities Neurological: Cranial nerves II-XII grossly intact, Neuro grossly intact Psych/Mental Status: Normal Affect, Appropriate Patient seen and examined prior to discharge. Physical assessment as noted above. Patient stable for discharge home with recommendations as noted above. This patient was seen by [facility] Holland under the supervision of Dr. Pineda. Discharge Diet: No Restrictions Discharge Activity: Return to Normal Activity Call your doctor if you observe: Shortness of breath, Dizziness, Fainting spells , Chest pain, Increased palpitations (irregular heartbeat) Home Medications: Medications to take at Discharge Albuterol Aerosols [Ventolin Aerosols] 2.5 mg INHALATION Q4H PRN PRN 07/09/17 Budesonide/Formoterol 160/4.5 [Symbicort 160/4.5 Mcg Inhaler (SP)] 2 puff INHALATION BID #1 inhaler 07/21/17 Guaifenesin [Mucinex] 1,200 mg PO BID #14 tab 07/21/17 Levalbuterol HCl [Xopenex] 0.63 mg INHALATION Q4H PRN PRN #30 vial.neb 07/21/17 Prednisone See Taper PO DAILY #30 tab 07/21/17 Primary Care Physician: Regis Souza MD [Primary Care Provider] - Please follow up with your Primary Care Physician in: 1 Week Please Follow Up With: Murtaza Tolentino MD - May see SPECIALTY COOK When: 1-2 Weeks to establish with Pulmonary Medicine. Patient Instructions: Chronic Lung Disease: Tips for Quitting Smoking Disposition: Home Minutes spent on discharge:: 35 Patient Condition:: Stable Meaningful Use Info Meaningful Use Diagnoses (Choose all that apply): None applicable <Damaris Pineda - Last Filed: 07/21/17 19:29> Discharge Date and Diagnosis - Secondary Discharge Diagnosis Chronic Problems Tobacco use (Chronic) History of tobacco use (Chronic) History of bladder cancer (Chronic) Chronic obstructive lung disease (Chronic) Hospital Course and Treatment Summary of Care Provided: The patient is a 72 year old M [] Code Visit This patient was seen in conjunction with Miriam Garcia NP. I have independently interviewed and examined the patient and reviewed pertinent historical, laboratory and other data. Please refer to discharge summary note for details of this patient's presentation, findings and recommendations. I have reviewed Miriam's note and concur fully with documented findings. In brief, patient is a 89YO male admitted with acute exacerbation of COPD in a patient who has smoked since the age of 16 and continues to smoke 1/2 PPD depsite having a hx of bladder CA and COPD. CXR at admission had no infiltrates and no PVC or pleural effusions. WBC at admission was Normal and he had no further fevers after he was transferred from the Er to PCU. Influenza swab, respiratory panel and the sputum culture were all negative. He responded well to ATC bronchodilators, high dose steroids and smoking cessation. He was treated with Azithromycin for acute bronchitis in a pt with COPD and 4+ WBC's in the sputum. I suspect he had a viral URI. Walking oximetry prior to DC di not reveal a need for home oxygen at DC. Smoking cessation counselling was given multiple times in the hospital by different individuals and he agreed to follow up with the pulmonary clinic post DC to arrange formal PFT's. Physical examination: Lungs - CTA Heart - RRR, No MM, no gallop and no rub no peripheral edema no rashes Abd - soft, NT, ND, nl BS's Assessment: 1. acute exacerbation of COPD 2. ongoing tobacco dependence I have discussed my assessment with Miriam and orders have been written. Inpatient E&M: 22813 Disch Hosp
== END 2017-07-11 11:14 | disposition home or self-care (01) | DRG 192 ==
LOC: ED 22:37 → PCU 22:46
PROVIDERS: Admitting Provider Family Medicine; Emergency Provider Emergency Medicine; Family Provider Family Medicine; PCP Family Medicine; Visit Provider Internal Medicine
DX: J44.1 Chronic obstructive pulmonary disease with (acute) exacerbation (principal); R09.02 Hypoxemia; R00.0 Tachycardia, unspecified; F17.210 Nicotine dependence, cigarettes, uncomplicated; Z85.51 Personal history of malignant neoplasm of bladder
CPT/HCPCS: 71046; 80053; 81001; 83605; 83735; 84484; 85025; 85610; 85730; 87040; 87070; 87205; 87633; 87804; 93005; 94640; 99283; 99406; J7030; A4216

== ENCOUNTER 2017-07-18 09:08 | Inpatient (IN) | payer MEDICARE, OTHER, SELFPAY ==
[2017-07-18] VITALS (17 sets, daily range): BP systolic 129–164; BP diastolic 79–100; PULSE 78–114; RESP 16–20; TEMP 36.3–36.7; O2SAT 91–98; BMI 25.1; BMI 23.3
--- NOTE | 2017-07-18 09:13 | NURSING ---
NO POA OR LW
--- NOTE | 2017-07-18 09:21 | EKG12_ITS ---
Test Reason : SOB Blood Pressure : / mmHG Vent. Rate : 094 BPM Atrial Rate : 094 BPM P-R Int : 146 ms QRS Dur : 078 ms QT Int : 354 ms P-R-T Axes : 067 066 039 degrees QTc Int : 442 ms Sinus rhythm with Premature atrial complexes Nonspecific ST abnormality Abnormal ECG Confirmed by ROSSY CANTRELL, ROBYN ([id number]), non linear editor ARUN SANCHEZ ([id number] on 07/22/2017 1:28:53 PM Referred By: TASHA Confirmed By:ROBYN BLAIR MD
--- NOTE | 2017-07-18 09:23 | ED.VISSUMM ---
- ER Visit Summary Date of Service: 07/18/17 Chief Complaint: Shortness of breath History of Present Illness: The patient is a 72 M recent hospitalization discharged last Friday. History of COPD not on home O2. Currently on tapering dose of prednisone. Denies any chest pain or hemoptysis. States his shortness of breath has returned and is worse in the last 2-3 days. He does have a nonproductive cough. Denies any hemoptysis. Denies any fever. No leg swelling. Physical Examination: Older male vital signs are stable. He is afebrile. His pulse ox is 98% on 2 L. They did not take her pulse ox without oxygen. H EENT exam is unremarkable. Neck nontender no JVD. Lungs are long expiratory phase. Expiratory wheezing bilaterally. No rales or rhonchi. Equal symmetrical. Chest wall nontender no crepitance. Heart is regular rate and rhythm without murmur. Abdomen is soft and nontender. Normal bowel sounds. He is moving all 4 extremities. Neurovascularly intact. Normal motor strength. No edema. No cords. No calf tenderness. Back exam normal nontender neurologically is awake and alert without focal motor deficits. Test Results: Changes consistent with COPD on a chest x-ray no acute process. His white count 18,100 most likely secondary to steroids it is currently on. BMP normal. Troponin normal. EKG sinus rhythm rate of 94 PACs. Emergency Department Course and Treatment: Patient will be treated with aerosols DuoNeb and albuterol. IV Solu-Medrol. And undergo screening labs, EKG and chest x-ray. Clinically this does appear to be exacerbation COPD. Treatment Plan: Repeat exam the patient is doing better after aerosols and IV Solu-Medrol. However he still has a prolonged respiratory phase and wheezing. Nurses walked him off of oxygen and his sats dropped to 88 and he got short of breath. I am speaking to Dr. Jane the hospitalist about admission. Disposition: Admission Impression: Acute dyspnea secondary to acute exacerbation COPD Acute hypoxia This note was generated with [employer] dictation software. It may contain incorrect words, spelling, and punctuation that were not noted in review of the chart prior to signing ED Disposition - Plan for ED Patient: Chief Complaint: Shortness of Breath Referrals: Regis Souza MD [Primary Care Provider] -
--- NOTE | 2017-07-18 09:25 | RAD_ITS ---
STUDY: X-RAY CHEST REASON FOR EXAM: Male, 72 years old. CHEST PAIN, SOB; BLADDER CA TECHNIQUE: Single AP portable view of the chest. COMPARISON: None. FINDINGS: There is hyperinflation of the lungs consistent with chronic obstructive lung disease (COPD). There is no demonstrated pleural abnormality. Normal size heart. Normal mediastinum and melissa. Normal visualized pulmonary arteries. Normal visualized aortic arch and descending thoracic aorta. Normal visualized thoracic spine. There is degenerative osteoarthritis of the bilateral shoulders. There is no demonstrated abnormality of the visualized soft tissue structures of the upper abdomen. RAD/Chest 1 View (Portable) IMPRESSION: There is hyperinflation of the lungs consistent with chronic obstructive lung disease (COPD). Electronically Signed: Christiane Galvez MD at 9:58 EDT Tel , Service support ,
[2017-07-18] MEDS: Albuterol 2.5 MG/3 ML VIAL.NEB. INHALATION ×2 (09:27→09:28)
[2017-07-18 09:43] LABS: Absolute Lymphocyte Count 2.21 X10^3/ul (0.83-4.51); Absolute Neutrophil Count 14.2 X10^3/uL (2.0-7.7); Basophil# 0.02 X10^3/uL; Basophil% 0.1 % (0-1); Eosinophil# 0.11 X10^3/uL; Eosinophils% 0.6 % (0-5); Hematocrit 42.1 % (40-54); Hemoglobin 14.6 g/dl (13.0-16.5); Lymphocyte # 2.21 X10^3/ul (4.0); Lymphocyte % 12.2 % (19-41); Mean Corp Hgb Conc 34.7 g/gl (32-36); Mean Corpuscular Hgb 31.1 pg (27.0-32.0); Mean Corpuscular Volume 89.6 fL (80-94); Mean Platelet Vol. 9.9 fl (6.2-12.0); Monocyte# 1.34 X10^3/uL; Monocyte% 7.4 % (0-10); Neutrophil # 14.22 X10^3/uL (2.7-7.7); Neutrophil % 78.8 % (47-70); POSITIVE COUNT NO; POSITIVE DIFFERENTIAL NO; POSITIVE MORPHOLOGY NO; Platelet Count 247 K/mm3 (150-450); RBC Distribution Width CV 12.8 % (11.6-14.6); RBC Distribution Width SD 41.7 fl (35.1-43.9); White Blood Count 18.1 K/mm3 (4.4-11.0)
[2017-07-18] MEDS: MethylPREDNISolone 125 MG/2 ML Vial IV (09:44)
[2017-07-18 09:57] LABS: Anion Gap 7 (5-15); BUN 18 mg/dL (7-18); BUN/Creat Ratio 19.9 RATIO (10-20); Calcium,Total 8.4 mg/dL (8.5-10.1); Chloride 102 mmol/L (98-107); EST Glomerular Filtration Rate 88 mL/min (>60); Est Glom Filt Rate - Afr Amer 107 mL/min (>60); Estimated Creatinine Clearance 78.86 ml/min; Glucose 84 mg/dL (74-106); Potassium 3.6 mmol/L (3.5-5.1); Sodium Level 139 mmol/L (136-145)
--- NOTE | 2017-07-18 10:52 | NURSING ---
DR CORRAL FOR DR CORDOVA
--- NOTE | 2017-07-18 10:56 | HP.PCM_ITS ---
Problem List (1) COPD exacerbation Status: Acute (2) History of bladder cancer Status: Chronic (3) History of tobacco use Status: Chronic History of Present Illness Date of Admission: 07/18/17 Chief Complaint: Worsening shortness of breath The patient is a 72 year old M with past medical history of COPD, not on home oxygen, bladder CA status post resection, chronic nicotine use disorder, recently discharged on 3 05/03/2017 with acute COPD exacerbation. Patient states that he was discharged not on oxygen, had gone home, his got sick and had a cold. He also has nasal congestion but denies any fever or chills. Noted that he was progressively short of breath without chest pain or change in sputum , color or change in sputum quantity. Over the last couple of days, shortness of breath has been moist and he decided to come to the ED. and was saturating 98 % on 4 L of oxygen. History was negative for any infiltrate. White cell count is elevated at 18.1 and patient is on steroid. Past Medical History Past Medical History (Chronic Problems): Chronic Problems Tobacco use (Chronic) History of tobacco use (Chronic) History of bladder cancer (Chronic) Chronic obstructive lung disease (Chronic) Allergies No Known Allergies Allergy (Verified 07/18/17 09:13) Home Medications: Ambulatory Orders Medication Instructions Recorded Albuterol Aerosols [Ventolin 2.5 mg INHALATION Q4H PRN PRN 07/09/17 Aerosols] Prednisone See Taper PO DAILY #30 tab 07/11/17 Surgical History: - - Bladder CA resection, T+A. Psychiatric History: No pertinent psych hx Smoking Status: Former smoker - *Family History Maternal History Items: - - Mother with history of chronic COPD with concurrent tobacco usage. Paternal History Items: - - Father with history of prostate cancer and chronic COPD with concurrent tobacco use history. Review of Systems Constitutional: Denies: Anorexia, Chills, Fever, Night Sweats, Weakness, Weight Change, Fatigue Eyes: Denies: Blurred vision, Cataracts, Conjunctivae Inflammation HEENT: Reports: Nasal Congestion. Denies: Difficulty Swallowing, Head Aches, Hearing Changes, Sinus Congestion, Sinus Drainage Cardiovascular: Denies: Chest Pain, Claudication, Chest Pressure, Chest Tightness, Orthopnea, Palpitations, Paroxysmal Noc. Dyspnea Respiratory: Reports: Shortness of Breath, Shortness of breath at rest, Shortness of breath upon exertion. Denies: Cough, Sputum production Gastrointestinal: Denies: Abdominal Pain, Constipation, Diarrhea, Hematemesis, Nausea, Vomiting Genitourinary: Denies: Dysuria, Frequency, Incontinence Musculoskeletal: Denies: Joint Pain, Joint stiffness, Joint swelling, Joint Tenderness Skin: Denies: Dryness, Pruritis, Rash, Wounds Neurological: Denies: Difficulty swallowing, Focal weakness, Numbness, Tingling Psychiatric: Denies: Anxiety, Depression, Homicidal Ideations, Suicidal Ideations Hematologic/ Lymphatic: Denies: Easy Bruising, Easy Bleeding VTE Information - Inpt Only VTE Present on Admission: No VTE Mechan Device Prophylaxis: SCD's VTE Pharm Prophylaxis ordered?: Yes - Physical Exam General: Alert, Oriented x3, Cooperative, No apparent distress, - - on 2l oxygen HEENT: Atraumatic, PERRLA, EOMI, Normocephalic Oral: Moist Mucosa Neck: Supple Lungs: Normal air movement, Diminished, Wheezes - few scattered Cardiovascular: Regular rate, Regular Rhythm, Normal S1, Normal S2, No murmurs Abdomen: Bowel Sounds Present, Soft, Non Tender, Non-Distended, No Hepato- splenomegaly Extremities: No edema Skin: No rashes, No breakdown Musculoskeletal: No Tenderness to Palpation of Joints or Extremities Lymphatic: No Cervical, Supraclavicular, or Inguinal Adenopathy Neurological: Cranial nerves II-XII grossly intact Psych/Mental Status: Normal Affect, Appropriate Vital Signs Temp Pulse Resp BP Pulse Ox 97.5 F L 97 19 H 161/100 H 93 07/18/17 09:09 07/18/17 10:23 07/18/17 10:23 07/18/17 10:23 07/18/17 10:23 Oxygen Flow Rate (L/min) 2 Oxygen Delivery Method Nasal Cannula Weight: 79.379 kg Body Mass Index (BMI) 25.1 Laboratory Tests Past 24 Hrs 07/18/17 07/18/17 09:34 09:34 WBC 18.1 H RBC 4.70 Hgb 14.6 Hct 42.1 MCV 89.6 MCH 31.1 MCHC 34.7 RDW 12.8 RDW Differential 41.7 Plt Count 247 MPV 9.9 Immature Gran % (Auto) 0.900 Neut % (Auto) 78.8 H Lymph % (Auto) 12.2 L Campbell % (Auto) 7.4 Eos % (Auto) 0.6 Baso % (Auto) 0.1 Absolute Neuts (auto) 14.2 H Absolute Lymphs (auto) 2.21 Total Counted Not Reportable Sodium 139 Potassium 3.6 Chloride 102 Carbon Dioxide 30.0 Anion Gap 7 BUN 18 Creatinine 0.90 Estim Creat Clear Calc 78.86 Est GFR (MDRD) Af Amer 107 Est GFR (MDRD) Non-Af 88 BUN/Creatinine Ratio 19.9 Glucose 84 Calcium 8.4 L Troponin I < 0.02 Assessment/Plan 4-year-old male with past medical history of COPD comes in with worsening shortness of breath. He was recently discharged on . 1. Acute hypoxic respiratory insufficiency going to acute COPD exacerbation, patient is on 4 L, not on oxygen at home, wean off for SPO2 more than 94%, continue breathing treatment, incentive spirometry. 2. Acute COPD exacerbation, patient recently completed antibiotics for COPD exacerbation, will give only breathing treatments around the clock, and as needed, IV Solu-Medrol. 3. History of breast CA status post resection 4. DVT Prophylaxis with Lovenox subcu Code Visit Inpatient E&M: 13671 Subs Hosp L2
--- NOTE | 2017-07-18 10:58 | NURSING ---
MED SURG ACUTE CHF EXAC PAINTSIL
[2017-07-18] MEDS: 0.9% NaCl Peripheral Flush Adult/Peds IV (14:05)
[2017-07-18] MEDS: Ipratropium/Albuterol Sulfate 3 ML AMPUL.NEB INHALATION ×3 (16:11→23:33)
[2017-07-18] MEDS: guaiFENesin 1,200 MG Tablet 1200 MG PO (21:50)
[2017-07-19] VITALS (14 sets, daily range): BP systolic 118–148; BP diastolic 68–79; PULSE 69–109; RESP 16–20; TEMP 36.5–37.2; O2SAT 90–94
[2017-07-19] MEDS: Ipratropium/Albuterol Sulfate 3 ML AMPUL.NEB INHALATION ×5 (03:39→19:01)
[2017-07-19 07:11] LABS: Hematocrit 40.4 % (40-54); Mean Corp Hgb Conc 34.7 g/gl (32-36); Mean Corpuscular Volume 89.6 fL (80-94); Mean Platelet Vol. 10.4 fl (6.2-12.0); Platelet Count 239 K/mm3 (150-450); RBC Distribution Width CV 12.8 % (11.6-14.6); RBC Distribution Width SD 41.8 fl (35.1-43.9); Red Blood Count 4.51 M/mm3 (4.6-6.2); White Blood Count 18.2 K/mm3 (4.4-11.0)
[2017-07-19 07:12] LABS: Scan Indicated on CBC? Y/N NO
[2017-07-19 07:18] LABS: Anion Gap 8 (5-15); BUN 23 mg/dL (7-18); BUN/Creat Ratio 24.9 RATIO (10-20); Calcium,Total 8.2 mg/dL (8.5-10.1); Chloride 103 mmol/L (98-107); Creatinine, Serum 0.92 mg/dL (0.70-1.30); EST Glomerular Filtration Rate 86 mL/min (>60); Est Glom Filt Rate - Afr Amer 104 mL/min (>60); Estimated Creatinine Clearance 77.14 ml/min; Glucose 137 mg/dL (74-106); Sodium Level 137 mmol/L (136-145)
[2017-07-19] MEDS: guaiFENesin 1,200 MG Tablet 1200 MG PO ×2 (10:27→21:43)
--- NOTE | 2017-07-19 12:37 | CASEMGMT ---
CM Readmission Assessment: Prior Admission: 07/09/17 - 07/11/17 - COPD Exacerbation Current Admission: Patient presented to ED with progressive SOB and was admitted for COPD exacerbation. Patient does not have home oxygen setup. All demographics/providers/contacts/pharmacy information reviewed and are unchanged from previous visit. Patient has a pulmonology appointment with Dr. Tolentino scheduled for Friday, 07/22. No other specialists. PCP is Regis Souza. If needed and qualifies, patient prefers to use [facility] for home oxygen set-up. Green sheet on chart with instructions for set-up. CM will continue to follow for safe discharge planning. Patient states he would like to go home upon discharge.
--- NOTE | 2017-07-19 12:49 | PCM.PN.HOSP ---
Subjective: Patient was seen and examined. Admitted yesterday with COPD exacerbation. Feels the same, has cough but no much production, denies any fever or chills. Has an increasing oxygen requirement to 2 L Objective: Physical Exam General: Alert, Oriented x3, Cooperative, No apparent distress, - - on 2l oxygen HEENT: Atraumatic, PERRLA, EOMI, Normocephalic Oral: Moist Mucosa Neck: Supple Lungs: Normal air movement, Diminished, Wheezes - few scattered Cardiovascular: Regular rate, Regular Rhythm, Normal S1, Normal S2, No murmurs Abdomen: Bowel Sounds Present, Soft, Non Tender, Non-Distended, No Hepato-splenomegaly Extremities: No edema Skin: No rashes, No breakdown Musculoskeletal: No Tenderness to Palpation of Joints or Extremities Lymphatic: No Cervical, Supraclavicular, or Inguinal Adenopathy Neurological: Cranial nerves II-XII grossly intact Psych/Mental Status: Normal Affect, Appropriate Vitals/I&O's: Vital Signs Temp Pulse Resp BP Pulse Ox 98.1 F 106 H 18 148/74 H 94 07/19/17 09:00 07/19/17 10:58 07/19/17 10:58 07/19/17 09:00 07/19/17 09:00 Oxygen Flow Rate (L/min) 2 Oxygen Delivery Method Nasal Cannula Weight: 79.4 kg Body Mass Index (BMI) 23.3 Intake and Output for Last 24 Hours 07/17/17 07/18/17 07/19/17 23:59 23:59 23:59 Intake Total 480 / 480 340 / 340 Balance 480 / 480 340 / 340 Microbiology Past 72 Hours 07/18/17 13:15 Mucosa - Nasopharyngeal Respiratory Panel (PCR) - Final Laboratory Results 07/19/17 06:21: WBC 18.2 H, RBC 4.51 L, Hgb 14.0, Hct 40.4, MCV 89.6, MCH 31.0, MCHC 34.7, RDW 12.8, RDW Differential 41.8, Plt Count 239, MPV 10.4 07/19/17 06:21: Sodium 137, Potassium 4.0, Chloride 103, Carbon Dioxide 26.0, Anion Gap 8, BUN 23 H, Creatinine 0.92, Estim Creat Clear Calc 77.14, Est GFR (MDRD) Af Amer 104, Est GFR (MDRD) Non-Af 86, BUN/Creatinine Ratio 24.9 H, Glucose 137 H, Calcium 8.2 L Current Medications Acetaminophen (Tylenol) 650 mg PO Q6H PRN PRN PRN Reason: Mild Pain (scale 0-3)/T>100.7 Albuterol Sulfate (Ventolin Aerosols) 2.5 mg INHALATION Q2H PRN PRN PRN Reason: SHORTNESS OF BREATH Albuterol/Ipratropium (Duoneb) 3 ml INHALATION Q4H.RT [facility] Last Admin: 07/19/17 10:58 Dose: 3 ml Bisacodyl (Dulcolax) 5 mg PO DAILY PRN PRN PRN Reason: Constipation Enoxaparin Sodium (Lovenox) 40 mg SC DAILY@0600 [facility] Last Admin: 07/19/17 05:46 Dose: Not Given Guaifenesin (Mucinex) 1,200 mg PO BID [facility] Last Admin: 07/19/17 10:27 Dose: 1,200 mg Magnesium Hydroxide (Milk Of Magnesia) 30 ml PO DAILY PRN PRN Reason: Constipation Methylprednisolone (Solu-Medrol) 40 mg IV Q8 [facility] Last Admin: 07/19/17 05:46 Dose: 40 mg Ondansetron HCl (Zofran) 4 mg IV Q8H PRN PRN PRN Reason: NAUSEA Psyllium Hydrophilic Mucilloid (Metamucil) 1 packet PO DAILY PRN PRN PRN Reason: CONSTIPATION Sodium Chloride () 5 - 30 ml IV UD PRN PRN Reason: SALINE FLUSH Last Admin: 07/18/17 14:05 Dose: 10 ml Medical Necessity - Tobacco Use Smoking Status: Former smoker Assessment/Plan 4-year-old male with past medical history of COPD comes in with worsening shortness of breath. He was recently discharged on . 1. Acute hypoxic respiratory insufficiency going to acute COPD exacerbation, appears the same, on 2L of oxygen now, wean off for SPO2 more than 94%, continue breathing treatment, incentive spirometry. 2. Acute COPD exacerbation, patient recently completed antibiotics for COPD exacerbation, and IV Solu-Medrol and breathing treatments, would add chest physiotherapy, encourage use of incentive spirometer. 3. History of breast CA status post resection 4. DVT Prophylaxis with Lovenox subcu Code Visit Inpatient E&M: 66235 Subs Hosp L2
[2017-07-19] MEDS: 0.9% NaCl Peripheral Flush Adult/Peds IV (21:43)
[2017-07-20] VITALS (12 sets, daily range): BP systolic 131–157; BP diastolic 74–87; PULSE 78–98; RESP 16–20; TEMP 36.2–37.1; O2SAT 87–94
[2017-07-20] MEDS: 0.9% NaCl Peripheral Flush Adult/Peds IV ×3 (05:32→22:14)
[2017-07-20] MEDS: Ipratropium/Albuterol Sulfate 3 ML AMPUL.NEB INHALATION ×4 (07:24→19:28)
--- NOTE | 2017-07-20 09:00 | RAD_ITS ---
STUDY: X-RAY CHEST REASON FOR EXAM: Male, 72 years old. Cough TECHNIQUE: PA and lateral views of the chest. COMPARISON: 07/18/2017. 07/09/2017. 10/09/2015 FINDINGS: There are superimposed monitor leads. There is hyperinflation of the lungs consistent with chronic obstructive lung disease (COPD). Chronic-appearing interstitial lung disease mid and lower lung parenchyma without focal consolidation. There is no demonstrated pleural abnormality. Normal size heart. Normal mediastinum and melissa. Normal visualized pulmonary arteries. Normal visualized aortic arch and descending thoracic aorta. There is demineralization of the osseous structures. Normal visualized ribs, clavicles, and shoulders. There is no demonstrated abnormality of the visualized soft tissue structures of the upper abdomen. RAD/Chest PA and Lateral IMPRESSION: COPD and chronic interstitial lung disease. No acute cardiopulmonary disease. No significant interval change. Electronically Signed: Wendi Pineda MD at 9:19 EDT , Service support ,
--- NOTE | 2017-07-20 09:00 | NURSING ---
TO XRAY VIA W/CH
[2017-07-20] MEDS: guaiFENesin 1,200 MG Tablet 1200 MG PO ×2 (09:41→22:14)
--- NOTE | 2017-07-20 09:41 | NURSING ---
rfx, up in chair
--- NOTE | 2017-07-20 10:35 | CT_ITS ---
STUDY: CT CHEST WITHOUT CONTRAST REASON FOR EXAM: Male, 72 years old. COPD exacerbation elevated white count sepsis RADIATION DOSAGE (If Supplied By Facility): CTDIvol = ( 13.68 ) mGy, DLP = ( 540 ) mGycm TECHNIQUE: Transaxial imaging was performed without the administration of intravenous contrast material. Multiplanar coronal and sagittal images were reformatted. Individualized dose optimization techniques were used for this CT. COMPARISON: July 20, 2017 chest x-ray FINDINGS: There is a pattern of peribronchial inflammatory change in the left lower lobe without consolidation. There is peribronchial patchy nodular densities within the medial aspect of the right lower lobe. This is superimposed on hyperinflation of the lungs. There is emphysematous change throughout the bilateral lung apices. There is a minimal focus of pleural plaquing in the right posterior chest. There is a pleural-based calcification on the left side at the left apex Normal heart and pericardium. There is a 1 cm AP window lymph node. There are nonspecific subcentimeter mediastinal lymph nodes. Normal hilar regions. Normal unenhanced pulmonary arteries. There is atherosclerotic calcification of the aortic arch with tortuosity and elongation of the aortic arch and descending thoracic aorta. There are multi-level degenerative changes of the thoracic spine. There is no demonstrated abnormality of the visualized upper abdomen. CT/Chest without Contrast IMPRESSION: Findings are consistent with bilateral lower lobe left greater than right patchy smudgy peribronchial inflammatory opacities suspicious for atypical infiltrates. This is superimposed on advanced pulmonary emphysema chronic obstructive pulmonary disease. N.B. : The above information has been verbally conveyed by Jeanne Herring MD to Murtaza Tolentino MD, Referring Physician, on 07/20/2017 12:12:38 (ET). Electronically Signed: Jeanne Herring MD at 12:01 EDT Tel , Service support , N.B. : The above information has been verbally conveyed by Jeanne Herring MD to Murtaza Tolentino MD, Referring Physician, on 07/20/2017 12:12:38 (ET).
--- NOTE | 2017-07-20 10:36 | PCM.CONS.GEN ---
Problem List (1) Tobacco use Status: Chronic (2) COPD exacerbation Status: Acute (3) Sepsis Status: Acute Qualifiers: Sepsis type: sepsis due to unspecified organism Qualified Code(s): A41.9 - Sepsis, unspecified organism (4) History of tobacco use Status: Chronic (5) History of bladder cancer Status: Chronic (6) Chronic obstructive lung disease Status: Chronic Qualifiers: Emphysema type: unspecified Reason for Consult Date of Consultation: 07/20/17 Reason for Consultation: COPD exacerbation History of Present Illness: The patient is a 72 year old M, with past medical history listed below, who presented to [facility] on 07/11/2017 secondary to an acute exacerbation of COPD. At that time, patient was treated with antibiotics, steroids and supplemental oxygen, but did improve. Patient was discharged without supplemental oxygen following a walking oximetry. Patient states that he went home and started to decompensate when he got to 20 mg of prednisone and had to come back into the hospital. Since being hospitalized, patient has required supplemental oxygen to maintain saturations. Patient has reported some improvement, but still has dyspnea on exertion. Patient reports a 50+-pack-year smoking history and reports he was told he had COPD approximately 10 years ago. Patient believes he had pulmonary function testing, but does not know the results. Patient was placed on Spiriva at that time, but this was discontinued secondary to urinary retention. Patient states that he paces himself for the last 10 or so years. 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 Patient states that he currently has an exercise tolerance of approximately 50 feet. Patient has noted a prodromal viral illness and patient's states that she has also been affected. Patient's is already improving from symptomatology, but states that she does not smoke and does not have COPD. 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 Otherwise, patient denies any exposure to asbestos or tuberculosis. 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 Patient does report that he had changed brake pads earlier in his life, but this only happened a couple of times. Patient denies any exposure to beryllium. Patient denies any radiation exposure. Patient does report that he has been hospitalized previously with COPD and did require a short course of supplemental oxygen on discharge. Review of systems otherwise negative ?10 systems. Past Medical History Past Medical History (Chronic Problems): Chronic Problems Tobacco use (Chronic) History of tobacco use (Chronic) History of bladder cancer (Chronic) Chronic obstructive lung disease (Chronic) Allergies No Known Allergies Allergy (Verified 07/18/17 09:13) Home Medications: Ambulatory Orders Medication Instructions Recorded Albuterol Aerosols [Ventolin 2.5 mg INHALATION Q4H PRN PRN 07/09/17 Aerosols] Prednisone See Taper PO DAILY #30 tab 07/11/17 Surgical History: - - Bladder CA resection, T+A. Psychiatric History: No pertinent psych hx Smoking Status: Former smoker - *Family History Maternal History Items: - - Mother with history of chronic COPD with concurrent tobacco usage. Paternal History Items: - - Father with history of prostate cancer and chronic COPD with concurrent tobacco use history. Review of Systems Comment: See HPI Objective: All imaging was personally reviewed. Patient did have a CT scan of the chest back in 2003 and multiple chest x-ray since. Chest x-ray this morning shows chronic and acute changes, right greater than left. - Physical Exam General: Alert, Oriented x3, Cooperative, No apparent distress, - - Little to no conversational dyspnea noted. HEENT: Atraumatic, PERRLA, EOMI, Normocephalic, - - No scleral icterus or injection noted. No epistaxis noted. Oral: Moist Mucosa, No Gingival or Mucosal Lesions/ Ulcerations Neck: Supple, No JVD, No Nodes, Trachea Midline Lungs: No rhonchi, No rales, Diminished, Wheezes - Right greater than left, - - Check expansion. No dullness to percussion. Cardiovascular: Regular rate, Regular Rhythm, Normal S1, Normal S2, No murmurs, No rub noted, No Gallop Abdomen: Bowel Sounds Present, Soft, Non Tender, Non-Distended Extremities: No cyanosis, No edema, Capillary Refill Less than 3 Seconds, Clubbing - Stage I Skin: No rashes, No breakdown Musculoskeletal: No Tenderness to Palpation of Joints or Extremities, No Muscle Wasting Lymphatic: No Cervical, Supraclavicular, or Inguinal Adenopathy Neurological: Cranial nerves II-XII grossly intact, Neuro grossly intact, Motor Exam 5/5 strength throughout Psych/Mental Status: Alert and oriented to time, place, person, mood and affect Vital Signs Temp Pulse Resp BP Pulse Ox 37.1 C 98 20 H 157/79 H 87 07/20/17 10:00 07/20/17 10:00 07/20/17 10:00 07/20/17 10:00 07/20/17 10:09 Oxygen Flow Rate (L/min) 3 Oxygen Delivery Method Nasal Cannula Weight: 79.4 kg Body Mass Index (BMI) 23.3 Intake and Output for Last 24 Hours 07/18/17 07/19/17 07/20/17 23:59 23:59 23:59 Intake Total 480 / 480 440 / 440 145 / 145 Balance 480 / 480 440 / 440 145 / 145 Microbiology Past 72 Hours 07/18/17 13:15 Respiratory Panel (PCR) - Final Mucosa - Nasopharyngeal Laboratory Tests 07/18/17 07/18/17 07/19/17 09:34 09:34 06:21 WBC 18.1 H 18.2 H RBC 4.70 4.51 L Hgb 14.6 14.0 Hct 42.1 40.4 MCV 89.6 89.6 MCH 31.1 31.0 MCHC 34.7 34.7 RDW 12.8 12.8 RDW Differential 41.7 41.8 Plt Count 247 239 MPV 9.9 10.4 Immature Gran % (Auto) 0.900 Neut % (Auto) 78.8 H Lymph % (Auto) 12.2 L [place] % (Auto) 7.4 Eos % (Auto) 0.6 Baso % (Auto) 0.1 Absolute Neuts (auto) 14.2 H Absolute Lymphs (auto) 2.21 Total Counted Not Reportable Sodium 139 Potassium 3.6 Chloride 102 Carbon Dioxide 30.0 Anion Gap 7 BUN 18 Creatinine 0.90 Estim Creat Clear Calc 78.86 Est GFR (MDRD) Af Amer 107 Est GFR (MDRD) Non-Af 88 BUN/Creatinine Ratio 19.9 Glucose 84 Calcium 8.4 L Troponin I < 0.02 07/19/17 06:21 WBC RBC Hgb Hct MCV MCH MCHC RDW RDW Differential Plt Count MPV Immature Gran % (Auto) Neut % (Auto) Lymph % (Auto) [place] % (Auto) Eos % (Auto) Baso % (Auto) Absolute Neuts (auto) Absolute Lymphs (auto) Total Counted Sodium 137 Potassium 4.0 Chloride 103 Carbon Dioxide 26.0 Anion Gap 8 BUN 23 H Creatinine 0.92 Estim Creat Clear Calc 77.14 Est GFR (MDRD) Af Amer 104 Est GFR (MDRD) Non-Af 86 BUN/Creatinine Ratio 24.9 H Glucose 137 H Calcium 8.2 L Troponin I Clinical Impression(s) from Imaging Studies Chest X-Ray 07/18/17 09:25 IMPRESSION: There is hyperinflation of the lungs consistent with chronic obstructive lung disease (COPD). Electronically Signed: Christiane Galvez MD at 9:58 EDT Tel , Service support , Chest X-Ray 07/20/17 09:00 IMPRESSION: COPD and chronic interstitial lung disease. No acute cardiopulmonary disease. No significant interval change. Electronically Signed: Wendi Pineda MD at 9:19 EDT , Service support , Assessment/Plan RECOMMENDATIONS: 1. Continue bronchodilators, mucolytic and steroids 2. Obtain CT scan of the chest without contrast 3. Wean oxygen as tolerated 4. Walking oximetry prior to discharge 5. Smoking cessation 6. Outpatient complete pulmonary function testing IMPRESSIONS: 1. Suspected COPD exacerbation from viral illness Patient's reports similar type onset of rhinorrhea and cough, but is already starting to improve. Clinical suspicion for advanced COPD secondary to prolonged smoking. Curiously, patient does have increased wheezing on the right compared to left. This may be secondary to retained secretions, but also may indicate a mediastinal mass or airway obstruction. Chest x-ray does show some areas of possible baseline scarring. It is unclear if this is secondary to predominant apical disease with congestion at the bases versus prior exposure with basilar scarring. Will obtain a CT scan of the chest for further evaluation. Patient should continue on bronchodilators, IV steroids and supplemental oxygen for now. Patient will need a walking oximetry prior to discharge 2. Active tobacco use Patient with over [id number] smoking history. Patient was smoking up until presentation to the hospital. Unclear if patient has a component of reactive airways disease that could be exacerbated by his smoking. Smoking cessation was reviewed in detail. Patient voiced understanding. 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 3. Advanced age/history of bladder cancer/poor insight Complicates care, management, recovery and prognosis. Likely okay to continue with baseline medications. Code Visit Inpatient E&M: [id number] Init Hosp L2
--- NOTE | 2017-07-20 10:49 | CON.PCM_ITS ---
Problem List (1) Tobacco use Status: Chronic (2) COPD exacerbation Status: Acute (3) Sepsis Status: Acute Qualifiers: Sepsis type: sepsis due to unspecified organism Qualified Code(s): A41.9 - Sepsis, unspecified organism (4) History of tobacco use Status: Chronic (5) History of bladder cancer Status: Chronic (6) Chronic obstructive lung disease Status: Chronic Qualifiers: Emphysema type: unspecified Reason for Consult Date of Consultation: 07/20/17 Reason for Consultation: COPD exacerbation History of Present Illness: The patient is a 72 year old M, with past medical history listed below, who presented to [facility] on 07/11/2017 secondary to an acute exacerbation of COPD. At that time, patient was treated with antibiotics, steroids and supplemental oxygen, but did improve. Patient was discharged without supplemental oxygen following a walking oximetry. Patient states that he went home and started to decompensate when he got to 20 mg of prednisone and had to come back into the hospital. Since being hospitalized, patient has required supplemental oxygen to maintain saturations. Patient has reported some improvement, but still has dyspnea on exertion. Patient reports a 50+-pack-year smoking history and reports he was told he had COPD approximately 10 years ago. Patient believes he had pulmonary function testing, but does not know the results. Patient was placed on Spiriva at that time, but this was discontinued secondary to urinary retention. Patient states that he paces himself for the last 10 or so years. 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 Patient states that he currently has an exercise tolerance of approximately 50 feet. Patient has noted a prodromal viral illness and patient's states that she has also been affected. Patient's is already improving from symptomatology, but states that she does not smoke and does not have COPD. 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 Otherwise, patient denies any exposure to asbestos or tuberculosis. 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 Patient does report that he had changed brake pads earlier in his life, but this only happened a couple of times. Patient denies any exposure to beryllium. Patient denies any radiation exposure. Patient does report that he has been hospitalized previously with COPD and did require a short course of supplemental oxygen on discharge. Review of systems otherwise negative ?10 systems. Past Medical History Past Medical History (Chronic Problems): Chronic Problems Tobacco use (Chronic) History of tobacco use (Chronic) History of bladder cancer (Chronic) Chronic obstructive lung disease (Chronic) Allergies No Known Allergies Allergy (Verified 07/18/17 09:13) Home Medications: Ambulatory Orders Medication Instructions Recorded Albuterol Aerosols [Ventolin 2.5 mg INHALATION Q4H PRN PRN 07/09/17 Aerosols] Prednisone See Taper PO DAILY #30 tab 07/11/17 Surgical History: - - Bladder CA resection, T+A. Psychiatric History: No pertinent psych hx Smoking Status: Former smoker - *Family History Maternal History Items: - - Mother with history of chronic COPD with concurrent tobacco usage. Paternal History Items: - - Father with history of prostate cancer and chronic COPD with concurrent tobacco use history. Review of Systems Comment: See HPI Objective: All imaging was personally reviewed. Patient did have a CT scan of the chest back in 2003 and multiple chest x-ray since. Chest x-ray this morning shows chronic and acute changes, right greater than left. - Physical Exam General: Alert, Oriented x3, Cooperative, No apparent distress, - - Little to no conversational dyspnea noted. HEENT: Atraumatic, PERRLA, EOMI, Normocephalic, - - No scleral icterus or injection noted. No epistaxis noted. Oral: Moist Mucosa, No Gingival or Mucosal Lesions/ Ulcerations Neck: Supple, No JVD, No Nodes, Trachea Midline Lungs: No rhonchi, No rales, Diminished, Wheezes - Right greater than left, - - Check expansion. No dullness to percussion. Cardiovascular: Regular rate, Regular Rhythm, Normal S1, Normal S2, No murmurs, No rub noted, No Gallop Abdomen: Bowel Sounds Present, Soft, Non Tender, Non-Distended Extremities: No cyanosis, No edema, Capillary Refill Less than 3 Seconds, Clubbing - Stage I Skin: No rashes, No breakdown Musculoskeletal: No Tenderness to Palpation of Joints or Extremities, No Muscle Wasting Lymphatic: No Cervical, Supraclavicular, or Inguinal Adenopathy Neurological: Cranial nerves II-XII grossly intact, Neuro grossly intact, Motor Exam 5/5 strength throughout Psych/Mental Status: Alert and oriented to time, place, person, mood and affect Vital Signs Temp Pulse Resp BP Pulse Ox 37.1 C 98 20 H 157/79 H 87 07/20/17 10:00 07/20/17 10:00 07/20/17 10:00 07/20/17 10:00 07/20/17 10:09 Oxygen Flow Rate (L/min) 3 Oxygen Delivery Method Nasal Cannula Weight: 79.4 kg Body Mass Index (BMI) 23.3 Intake and Output for Last 24 Hours 07/18/17 07/19/17 07/20/17 23:59 23:59 23:59 Intake Total 480 / 480 440 / 440 145 / 145 Balance 480 / 480 440 / 440 145 / 145 Microbiology Past 72 Hours 07/18/17 13:15 Respiratory Panel (PCR) - Final Mucosa - Nasopharyngeal Laboratory Tests 07/18/17 07/18/17 07/19/17 09:34 09:34 06:21 WBC 18.1 H 18.2 H RBC 4.70 4.51 L Hgb 14.6 14.0 Hct 42.1 40.4 MCV 89.6 89.6 MCH 31.1 31.0 MCHC 34.7 34.7 RDW 12.8 12.8 RDW Differential 41.7 41.8 Plt Count 247 239 MPV 9.9 10.4 Immature Gran % (Auto) 0.900 Neut % (Auto) 78.8 H Lymph % (Auto) 12.2 L [place] % (Auto) 7.4 Eos % (Auto) 0.6 Baso % (Auto) 0.1 Absolute Neuts (auto) 14.2 H Absolute Lymphs (auto) 2.21 Total Counted Not Reportable Sodium 139 Potassium 3.6 Chloride 102 Carbon Dioxide 30.0 Anion Gap 7 BUN 18 Creatinine 0.90 Estim Creat Clear Calc 78.86 Est GFR (MDRD) Af Amer 107 Est GFR (MDRD) Non-Af 88 BUN/Creatinine Ratio 19.9 Glucose 84 Calcium 8.4 L Troponin I < 0.02 07/19/17 06:21 WBC RBC Hgb Hct MCV MCH MCHC RDW RDW Differential Plt Count MPV Immature Gran % (Auto) Neut % (Auto) Lymph % (Auto) [place] % (Auto) Eos % (Auto) Baso % (Auto) Absolute Neuts (auto) Absolute Lymphs (auto) Total Counted Sodium 137 Potassium 4.0 Chloride 103 Carbon Dioxide 26.0 Anion Gap 8 BUN 23 H Creatinine 0.92 Estim Creat Clear Calc 77.14 Est GFR (MDRD) Af Amer 104 Est GFR (MDRD) Non-Af 86 BUN/Creatinine Ratio 24.9 H Glucose 137 H Calcium 8.2 L Troponin I Clinical Impression(s) from Imaging Studies Chest X-Ray 07/18/17 09:25 IMPRESSION: There is hyperinflation of the lungs consistent with chronic obstructive lung disease (COPD). Electronically Signed: Christiane Galvez MD at 9:58 EDT Tel , Service support , Chest X-Ray 07/20/17 09:00 IMPRESSION: COPD and chronic interstitial lung disease. No acute cardiopulmonary disease. No significant interval change. Electronically Signed: Wendi Pineda MD at 9:19 EDT , Service support , Assessment/Plan RECOMMENDATIONS: 1. Continue bronchodilators, mucolytic and steroids 2. Obtain CT scan of the chest without contrast 3. Wean oxygen as tolerated 4. Walking oximetry prior to discharge 5. Smoking cessation 6. Outpatient complete pulmonary function testing IMPRESSIONS: 1. Suspected COPD exacerbation from viral illness Patient's reports similar type onset of rhinorrhea and cough, but is already starting to improve. Clinical suspicion for advanced COPD secondary to prolonged smoking. Curiously, patient does have increased wheezing on the right compared to left. This may be secondary to retained secretions, but also may indicate a mediastinal mass or airway obstruction. Chest x-ray does show some areas of possible baseline scarring. It is unclear if this is secondary to predominant apical disease with congestion at the bases versus prior exposure with basilar scarring. Will obtain a CT scan of the chest for further evaluation. Patient should continue on bronchodilators, IV steroids and supplemental oxygen for now. Patient will need a walking oximetry prior to discharge 2. Active tobacco use Patient with over [id number] smoking history. Patient was smoking up until presentation to the hospital. Unclear if patient has a component of reactive airways disease that could be exacerbated by his smoking. Smoking cessation was reviewed in detail. Patient voiced understanding. 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 3. Advanced age/history of bladder cancer/poor insight Complicates care, management, recovery and prognosis. Likely okay to continue with baseline medications. Code Visit Inpatient E&M: 81978 Init Hosp L2
--- NOTE | 2017-07-20 11:17 | NURSING ---
TO RADIOLOGY FOR CT SCAN
--- NOTE | 2017-07-20 12:32 | PCM.PN.HOSP ---
Subjective: Patient was seen and examined. Still SOB, denies chest pain, palpitations. Feels his secretions are starting to come up more now. Slept better last night. Objective: Physical Exam General: Alert, Oriented x3, Cooperative, No apparent distress, - - on 2l oxygen HEENT: Atraumatic, PERRLA, EOMI, Normocephalic Oral: Moist Mucosa Neck: Supple Lungs: Normal air movement, Diminished, Wheezes - few scattered Cardiovascular: Regular rate, Regular Rhythm, Normal S1, Normal S2, No murmurs Abdomen: Bowel Sounds Present, Soft, Non Tender, Non-Distended, No Hepato-splenomegaly Extremities: No edema Skin: No breakdown Musculoskeletal: No Tenderness to Palpation of Joints or Extremities Lymphatic: No Cervical, Supraclavicular, or Inguinal Adenopathy Neurological: Cranial nerves II-XII grossly intact Psych/Mental Status: Normal Affect, Appropriate Vitals/I&O's: Vital Signs Temp Pulse Resp BP Pulse Ox 98.8 F 92 16 157/79 H 91 07/20/17 10:00 07/20/17 11:43 07/20/17 11:43 07/20/17 10:00 07/20/17 11:43 Oxygen Flow Rate (L/min) 2 Oxygen Delivery Method Nasal Cannula Weight: 79.4 kg Body Mass Index (BMI) 23.3 Intake and Output for Last 24 Hours 07/18/17 07/19/17 07/20/17 23:59 23:59 23:59 Intake Total 480 / 480 440 / 440 145 / 145 Balance 480 / 480 440 / 440 145 / 145 Microbiology Past 72 Hours 07/18/17 13:15 Mucosa - Nasopharyngeal Respiratory Panel (PCR) - Final Current Medications Acetaminophen (Tylenol) 650 mg PO Q6H PRN PRN PRN Reason: Mild Pain (scale 0-3)/T>100.7 Albuterol Sulfate (Ventolin Aerosols) 2.5 mg INHALATION Q2H PRN PRN PRN Reason: SHORTNESS OF BREATH Albuterol/Ipratropium (Duoneb) 3 ml INHALATION Q4H.RT [facility] Last Admin: 07/20/17 11:44 Dose: 3 ml Bisacodyl (Dulcolax) 5 mg PO DAILY PRN PRN PRN Reason: Constipation Enoxaparin Sodium (Lovenox) 40 mg SC DAILY@0600 [facility] Last Admin: 07/20/17 05:43 Dose: Not Given Guaifenesin (Mucinex) 1,200 mg PO BID [facility] Last Admin: 07/20/17 09:41 Dose: 1,200 mg Magnesium Hydroxide (Milk Of Magnesia) 30 ml PO DAILY PRN PRN Reason: Constipation Methylprednisolone (Solu-Medrol) 40 mg IV Q8 [facility] Last Admin: 07/20/17 05:32 Dose: 40 mg Ondansetron HCl (Zofran) 4 mg IV Q8H PRN PRN PRN Reason: NAUSEA Psyllium Hydrophilic Mucilloid (Metamucil) 1 packet PO DAILY PRN PRN PRN Reason: CONSTIPATION Sodium Chloride () 5 - 30 ml IV UD PRN PRN Reason: SALINE FLUSH Last Admin: 07/20/17 05:32 Dose: 20 ml Medical Necessity - Tobacco Use Smoking Status: Former smoker Assessment/Plan 72-year-old male with past medical history of COPD comes in with worsening shortness of breath. He was recently discharged on 07/11/2017. 1. Acute hypoxic respiratory insufficiency secondary to acute COPD exacerbation, remains on 2L of oxygen, continue on breathing treatments, IV steroids, incentive spirometer, wean off for SPO2 more than 94%, possible start oral prednisone from tomorrow. 2. Acute COPD exacerbation, management as in #1 3. History of bladder CA s/p resection 4. DVT Prophylaxis with Lovenox subcu Code Visit Inpatient E&M: 22696 Subs Hosp L2
--- NOTE | 2017-07-20 12:53 | PN_ITS ---
Subjective: Patient was seen and examined. Still SOB, denies chest pain, palpitations. Feels his secretions are starting to come up more now. Slept better last night. Objective: Physical Exam General: Alert, Oriented x3, Cooperative, No apparent distress, - - on 2l oxygen HEENT: Atraumatic, PERRLA, EOMI, Normocephalic Oral: Moist Mucosa Neck: Supple Lungs: Normal air movement, Diminished, Wheezes - few scattered Cardiovascular: Regular rate, Regular Rhythm, Normal S1, Normal S2, No murmurs Abdomen: Bowel Sounds Present, Soft, Non Tender, Non-Distended, No Hepato- splenomegaly Extremities: No edema Skin: No breakdown Musculoskeletal: No Tenderness to Palpation of Joints or Extremities Lymphatic: No Cervical, Supraclavicular, or Inguinal Adenopathy Neurological: Cranial nerves II-XII grossly intact Psych/Mental Status: Normal Affect, Appropriate Vitals/I&O's: Vital Signs Temp Pulse Resp BP Pulse Ox 98.8 F 92 16 157/79 H 91 07/20/17 10:00 07/20/17 11:43 07/20/17 11:43 07/20/17 10:00 07/20/17 11:43 Oxygen Flow Rate (L/min) 2 Oxygen Delivery Method Nasal Cannula Weight: 79.4 kg Body Mass Index (BMI) 23.3 Intake and Output for Last 24 Hours 07/18/17 07/19/17 07/20/17 23:59 23:59 23:59 Intake Total 480 / 480 440 / 440 145 / 145 Balance 480 / 480 440 / 440 145 / 145 Microbiology Past 72 Hours 07/18/17 13:15 Mucosa - Nasopharyngeal Respiratory Panel (PCR) - Final Current Medications Acetaminophen (Tylenol) 650 mg PO Q6H PRN PRN PRN Reason: Mild Pain (scale 0-3)/T>100.7 Albuterol Sulfate (Ventolin Aerosols) 2.5 mg INHALATION Q2H PRN PRN PRN Reason: SHORTNESS OF BREATH Albuterol/Ipratropium (Duoneb) 3 ml INHALATION Q4H.RT [facility] Last Admin: 07/20/17 11:44 Dose: 3 ml Bisacodyl (Dulcolax) 5 mg PO DAILY PRN PRN PRN Reason: Constipation Enoxaparin Sodium (Lovenox) 40 mg SC DAILY@0600 [facility] Last Admin: 07/20/17 05:43 Dose: Not Given Guaifenesin (Mucinex) 1,200 mg PO BID [facility] Last Admin: 07/20/17 09:41 Dose: 1,200 mg Magnesium Hydroxide (Milk Of Magnesia) 30 ml PO DAILY PRN PRN Reason: Constipation Methylprednisolone (Solu-Medrol) 40 mg IV Q8 [facility] Last Admin: 07/20/17 05:32 Dose: 40 mg Ondansetron HCl (Zofran) 4 mg IV Q8H PRN PRN PRN Reason: NAUSEA Psyllium Hydrophilic Mucilloid (Metamucil) 1 packet PO DAILY PRN PRN PRN Reason: CONSTIPATION Sodium Chloride () 5 - 30 ml IV UD PRN PRN Reason: SALINE FLUSH Last Admin: 07/20/17 05:32 Dose: 20 ml Medical Necessity - Tobacco Use Smoking Status: Former smoker Assessment/Plan 72-year-old male with past medical history of COPD comes in with worsening shortness of breath. He was recently discharged on 07/11/2017. 1. Acute hypoxic respiratory insufficiency secondary to acute COPD exacerbation , remains on 2L of oxygen, continue on breathing treatments, IV steroids, incentive spirometer, wean off for SPO2 more than 94%, possible start oral prednisone from tomorrow. 2. Acute COPD exacerbation, management as in #1 3. History of bladder CA s/p resection 4. DVT Prophylaxis with Lovenox subcu Code Visit Inpatient E&M: 25944 Subs Hosp L2
--- NOTE | 2017-07-20 14:28 | CPS ---
patient doing PEP therapy on own
[2017-07-21] VITALS (10 sets, daily range): BP systolic 122–140; BP diastolic 67–86; PULSE 88–103; RESP 18–20; TEMP 36.4–37; O2SAT 80–98
[2017-07-21] MEDS: 0.9% NaCl Peripheral Flush Adult/Peds IV (05:41)
[2017-07-21] MEDS: Ipratropium/Albuterol Sulfate 3 ML AMPUL.NEB INHALATION ×2 (06:42→10:59)
--- NOTE | 2017-07-21 08:58 | PCM.PROGNOTE ---
Subjective: The patient was seen and examined. Maintaining appropriate saturations on 2 L of oxygen supplementation. Remains afebrile and hemodynamically stable. Reports feeling better overall, still dyspneic on exertion. Some sputum production and chest congestion, difficulty expectorating. Ready to go home today. Objective: Recent lab work and culture data reviewed. Respiratory viral panel was negative. Leukocytosis persists, continues with Solu-Medrol. Chest CT with findings consistent with bronchiectasis and advanced emphysema/COPD. - Physical Exam General: Alert, Oriented x3, Cooperative, No apparent distress, - - No conversational dyspnea HEENT: Atraumatic, Normocephalic Oral: Moist Mucosa Neck: Supple, No Nodes, Trachea Midline Lungs: Diminished, - - Expiratory wheeze posteriorly, L>R, rhonchi throughout, worse on the left. No rales Cardiovascular: Normal S1, Normal S2, No murmurs, No rub noted, No Gallop, - - Regular with ectopic beats Abdomen: Bowel Sounds Present, Soft, Non Tender, Non-Distended Extremities: No cyanosis, No edema, No Calf Tenderness, Clubbing - Mild Skin: No rashes, No breakdown Musculoskeletal: No Tenderness to Palpation of Joints or Extremities Lymphatic: No Cervical, Supraclavicular, or Inguinal Adenopathy Neurological: Cranial nerves II-XII grossly intact, Neuro grossly intact, Motor Exam 5/5 strength throughout Psych/Mental Status: Alert and oriented to time, place, person, mood and affect Vital Signs Temp Pulse Resp BP Pulse Ox 98.3 F 90 20 H 140/86 H 98 07/21/17 07:45 07/21/17 07:45 07/21/17 07:45 07/21/17 07:45 07/21/17 07:45 Oxygen Flow Rate (L/min) 2 Oxygen Delivery Method Nasal Cannula Weight: 175 lb 0.752 oz Body Mass Index (BMI) 23.3 Intake and Output for Last 24 Hours 07/19/17 07/20/17 07/21/17 23:59 23:59 23:59 Intake Total 440 / 440 145 / 145 Balance 440 / 440 145 / 145 Microbiology Past 72 Hours 07/18/17 13:15 Respiratory Panel (PCR) - Final Mucosa - Nasopharyngeal Medical Necessity - Tobacco Use Smoking Status: Former smoker Assessment/Plan RECOMMENDATIONS: 1. Continue bronchodilators, mucolytic and steroids 2. Encourage incentive spirometer and Acapella 3. Wean oxygen as tolerated 4. Walking oximetry prior to discharge 5. Smoking cessation 6. Outpatient complete pulmonary function testing 7. Steroid taper at discharge 8. Okay to discharge from pulmonary perspective pending walking oximetry IMPRESSIONS: 1. Suspected COPD exacerbation from viral illness Patient's reports similar type onset of rhinorrhea and cough, but is already starting to improve. Clinical suspicion for advanced COPD secondary to prolonged smoking. Patient does have increased wheezing on the right compared to left. This may be secondary to retained secretions, but also may indicate a mediastinal mass or airway obstruction. Chest x-ray does show some areas of possible baseline scarring. It is unclear if this is secondary to predominant apical disease with congestion at the bases versus prior exposure with basilar scarring. CT chest confirming advanced emphysema and bronchiectasis. Results reviewed with patient and , discussed management of bronchiectasis with Acapella, hydration, prompt medical attention if sick, etc. Patient should continue on bronchodilators, steroids and supplemental oxygen for now. Steroid taper 12 day at discharge. Aggressive pulmonary toileting. Patient will need a walking oximetry prior to discharge. 2. Active tobacco use Patient with over [id number] smoking history. Patient was smoking up until presentation to the hospital. Smoking cessation was reviewed in detail and reinforced today. Patient voiced understanding. 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 3. Advanced age/history of bladder cancer/poor insight Complicates care, management, recovery and prognosis. Likely okay to continue with baseline medications. This note was generated with [employer] dictation software. It may contain incorrect words, spelling, and punctuation that were not noted in checking the note before signing.
[2017-07-21] MEDS: guaiFENesin 1,200 MG Tablet 1200 MG PO (09:23)
--- NOTE | 2017-07-21 10:53 | PCM.DC ---
You will use the following diet at home:: Regular Call your doctor if you observe: Fever of 101 or Higher, Shortness of breath, Chest pain Allergies/Adverse Reactions: Allergies No Known Allergies Allergy (Verified 07/18/17 09:13) Medications to take at Discharge Albuterol Aerosols [Ventolin Aerosols] 2.5 mg INHALATION Q4H PRN PRN 07/09/17 Budesonide/Formoterol 160/4.5 [Symbicort 160/4.5 Mcg Inhaler (SP)] 2 puff INHALATION BID #1 inhaler 07/21/17 Guaifenesin [Mucinex] 1,200 mg PO BID #14 tab 07/21/17 Levalbuterol HCl [Xopenex] 0.63 mg INHALATION Q4H PRN PRN #30 vial.neb 07/21/17 Prednisone See Taper PO DAILY #30 tab 07/21/17 The following prescriptions were given: Levalbuterol HCl [Xopenex] 0.63 mg INHALATION Q4H PRN PRN #30 vial.neb PRN Reason: Sob &/Or Wheezing Prednisone See Taper PO DAILY #30 tab Budesonide/Formoterol 160/4.5 [Symbicort 160/4.5 Mcg Inhaler (SP)] 2 puff INHALATION BID #1 inhaler Guaifenesin [Mucinex] 1,200 mg PO BID #14 tab Primary Care Physician: Regis Souza MD [Primary Care Provider] - Please follow up with your Primary Care Physician in: in 2 weeks Please Follow Up With: Murtaza Tolentino MD When: in 2 weeks for PFT and COPD
--- NOTE | 2017-07-21 18:15 | DS.PCM_ITS ---
Discharge Date and Diagnosis Date of Admission: 07/18/17 Date of Discharge: 07/21/17 - Primary Discharge Diagnosis 1. Acute hypoxic respiratory failure secondary to acute COPD exacerbation 2. Acute COPD exacerbation with history of COPD/emphysema - Secondary Discharge Diagnosis Chronic Problems Tobacco use (Chronic) History of tobacco use (Chronic) History of bladder cancer (Chronic) Chronic obstructive lung disease (Chronic) Hospital Course and Treatment Operations: None Summary of Care Provided: The patient is a 72 year old M with past medical history of COPD comes in with worsening shortness of breath. He was recently discharged on 07/11/2017. He was admitted on [facility] floor. 1. Acute hypoxic respiratory failure secondary to acute COPD exacerbation, on 2L of oxygen, continue on breathing treatments, IV steroids, incentive spirometer. Patient went off oxygen. At time of discharge, patient's pulse oximetry was 95% ambulating on room air. 2. Acute COPD exacerbation with history of COPD/emphysema: As mentioned above 3. History of bladder CA s/p resection 4. DVT Prophylaxis with Lovenox subcu [] Discharge medication reconciliation done. Follow-up instructions given. Prescription of Xopenex nebulization and Symbicort was sent to the pharmacy. Total time spent, exact 32 minutes on discharge meds reconciliation, examination , review of imaging and blood test and discussion with the patient on follow-up instructions. Call your doctor if you observe: Fever of 101 or Higher, Shortness of breath, Chest pain Home Medications: Medications to take at Discharge Albuterol Aerosols [Ventolin Aerosols] 2.5 mg INHALATION Q4H PRN PRN 07/09/17 Budesonide/Formoterol 160/4.5 [Symbicort 160/4.5 Mcg Inhaler (SP)] 2 puff INHALATION BID #1 inhaler 07/21/17 Guaifenesin [Mucinex] 1,200 mg PO BID #14 tab 07/21/17 Prednisone See Taper PO DAILY #30 tab 07/21/17 Levalbuterol HCl [Xopenex] 0.63 mg INHALATION Q4H PRN #30 vial.neb 07/22/17 Following Prescrptions Were Given to Patient: Levalbuterol HCl [Xopenex] 0.63 mg INHALATION Q4H PRN #30 vial.neb PRN Reason: Sob &/Or Wheezing Prednisone See Taper PO DAILY #30 tab Budesonide/Formoterol 160/4.5 [Symbicort 160/4.5 Mcg Inhaler (SP)] 2 puff INHALATION BID #1 inhaler Guaifenesin [Mucinex] 1,200 mg PO BID #14 tab Primary Care Physician: Regis Souza MD [Primary Care Provider] - Please follow up with your Primary Care Physician in: in 2 weeks Please Follow Up With: Murtaza Tolentino MD When: in 2 weeks for PFT and COPD Please Follow Up With: Regis Souza MD Medical Necessity - Tobacco Use Smoking Status: Former smoker Meaningful Use Info Meaningful Use Diagnoses (Choose all that apply): None applicable Code Visit Inpatient E&M: 77959 Disch Hosp
== END 2017-07-21 12:25 | disposition home or self-care (01) | DRG 190 ==
LOC: ED 10:23 → MS3 11:07
PROVIDERS: Admitting Provider Internal Medicine; Emergency Provider Emergency Medicine; Family Provider Family Medicine; PCP Family Medicine; Visit Provider Internal Medicine
DX: J44.1 Chronic obstructive pulmonary disease with (acute) exacerbation (principal); J96.01 Acute respiratory failure with hypoxia; Z87.891 Personal history of nicotine dependence; Z85.51 Personal history of malignant neoplasm of bladder
CPT/HCPCS: 36415; 71045; 71046; 71250; 80048; 84484; 85025; 85027; 87633; 93005; 94640; 94667; 94668; 97116; 97162; 97165; 99285; A4216

== ENCOUNTER → 2017-09-04 07:44 | Outpatient (CLI) | payer MEDICARE, OTHER, SELFPAY ==
--- NOTE | 2017-09-04 10:39 | PFT ---
INTRODUCTION: The patient is a 72-year-old male currently under the care of Kierra Delgado NP that presents for pulmonary function testing secondary to a diagnosis of COPD. Respiratory therapy reports patient effort. Bronchodilators were used during testing. INTERPRETATION: Forced expiration spirometry demonstrates the presence of a severe large airways obstructive ventilatory defect. There was no significant response to aerosolized bronchodilators, based upon strict ATS criteria. Spirograms are of good quality and do not plateau indicating slow emptying of the lungs. The respiratory flow volume loop reveals decreased expiratory flow rates at all lung volumes consistent with airways obstruction. Body plethysmography was performed and reveals an elevated TLC and RV, indicative of underlying hyperinflation and air-trapping. Diffusing capacity by single breath CO is mildly reduced at 67% of predicted. IMPRESSION: These pulmonary function studies demonstrate the presence of an irreversible severe large airways obstructive ventilatory defect with associated hyperinflation, air trapping and mild reduction in diffusing capacity. There are no previous pulmonary function studies available for comparison.
== END ==
PROVIDERS: Family Provider Family Medicine; PCP Family Medicine; Visit Provider Nurse Practitioner Acute Care
DX: J44.9 Chronic obstructive pulmonary disease, unspecified (principal)
CPT/HCPCS: 94060; 94726; 94729

== ENCOUNTER → 2018-04-16 07:52 | Outpatient (CLI) | payer MEDICARE, OTHER, SELFPAY ==
--- NOTE | 2018-04-17 10:27 | PFT_ITS ---
INTRODUCTION: The patient is a 72-year-old male that presents for pulmonary function testing secondary to a diagnosis of COPD. Respiratory therapy reports good patient effort. Bronchodilators were used during testing. INTERPRETATION: Forced expiration spirometry demonstrates the presence of a severe large airways obstructive ventilatory defect. There was a significant response to aerosolized bronchodilators noted. Spirograms are of good quality and do not plateau indicating slow emptying of the lungs. Body plethysmography was performed and reveals an elevated TLC and RV, indicative of underlying hyperinflation and air- trapping. Diffusing capacity by single breath CO is preserved at 74% of predicted. There has been stability in the patient's breathing tests when compared to August 2017. IMPRESSION: These pulmonary function studies demonstrate the presence of a partially reversible severe large airways obstructive ventilatory defect with associated hyperinflation and air-trapping. Diffusing capacity remains preserved.
== END ==
PROVIDERS: Family Provider Family Medicine; PCP Family Medicine; Referring Provider Internal Medicine Critical Care Medicine; Visit Provider Internal Medicine Critical Care Medicine
DX: J44.9 Chronic obstructive pulmonary disease, unspecified (principal); Z87.891 Personal history of nicotine dependence
CPT/HCPCS: 94060; 94726; 94729

== ENCOUNTER 2018-07-14 07:26 | Day surgery (SDC) | payer MEDICARE, OTHER, SELFPAY ==
[2018-06-19 08:52] VITALS: BMI 25.7
[2018-07-14 07:43] VITALS: BP 140/78; PULSE 95; RESP 16; TEMP 36.2; O2SAT 99; BMI 26.2
[2018-07-14 08:00] VITALS: BP 112/74; BP 140/78; PULSE 75; RESP 16; TEMP 36.1; O2SAT 98
--- NOTE | 2018-07-14 08:30 | COLBX_PTH ---
PATIENT: GEE RENE LOC: EN U#:[id number] AGE/SX: 73/M ROOM: RE07/14/[address]: Dr. Emeterio Staley MD : [id number] BED: DIS: 07/14/2018 SPEC #: [id number] RECD: 07/14/18 08:59 STATUS: MARTIN LUDY #: [id number] LORNA: 07/14/18 08:[address]: Emeterio Staley DEPT: SURGICAL PATHOLOGY RECD BY: Handy Newell ENTERED: 07/14/18 13:01 SP TYPE: COLON BX OTHR DR: Dr. Regis Souza MD Tissues: Rectum, NOS Procedures: Surgery Specimen Level IV HEADER OPERATION: Colonoscopy (MAC) PRE-OP DIAGNOSIS: Positive colorectal cancer screening TISSUE SUBMITTED: Polyp distal rectum MICROSCOPIC DIAGNOSIS Polyp distal rectum, biopsy: Fragments of tubulovillous adenoma. SJ:yanni 07/15/18 MICROSCOPIC DESCRIPTION Slides are reviewed. GROSS DESCRIPTION Received in fixative is one container labeled with the patient's name and designated polyp distal rectum. The specimen consists of two pieces of negro-pink polyp measuring 2 x 1 x 0.7 cm and 1 x 0.9 x 1 cm. One polyp is inked black and the other polyp is inked blue. Both polyps are bisected and submitted entirely in one cassette. / SJ:rg 07/14/18 TC:5 CPT: 92703
--- NOTE | 2018-07-14 08:44 | OP.ENDO_ITS ---
07/14/2018 Regis Souza Re : Colonoscopy procedure for Allan Meyer Dear Libby This procedure was performed on Saturday, July 14, 2018. My impressions and recommendations are as follows: Impressions : - One polyp in the rectum, removed with a hot snare. Resected and retrieved. - The examination was otherwise normal on direct and retroflexion views. Recommendations : - Discharge patient to home. - Resume previous diet. - Continue present medications. - Repeat colonoscopy date to be determined after pending pathology results are reviewed for surveillance based on pathology results. My findings are described in the full procedure note, which is enclosed. If I can be of further assistance, please feel free to contact me at Doctor phone number(s): , Work: . Sincerely, Emeterio Staley MD 07/14/2018 8:44:08 AM This report has been signed electronically.
[2018-07-14 08:45] VITALS: BP 107/67; BP 140/78; PULSE 79; RESP 16; TEMP 36.1; O2SAT 97
[2018-07-14 08:50] VITALS: BP 103/71; BP 140/78; PULSE 76; RESP 16; O2SAT 98
[2018-07-14 08:55] VITALS: BP 101/74; BP 140/78; PULSE 80; RESP 16; O2SAT 99
[2018-07-14 09:25] VITALS: BP 140/78
== END 2018-07-14 09:25 | disposition home or self-care (01) ==
LOC: EN 07:26 → AC 07:29
PROVIDERS: Family Provider Family Medicine; PCP Family Medicine; Referring Provider Surgery; Visit Provider Surgery
PROC: 0DJD8ZZ Inspection of Lower Intestinal Tract, Via Natural or Artificial Opening Endoscopic (ICD-10-PCS; CPT 45378; principal; 2018-07-14 08:25)
DX: K62.1 Rectal polyp (principal); R19.5 Other fecal abnormalities; J43.9 Emphysema, unspecified; Z85.51 Personal history of malignant neoplasm of bladder; Z87.891 Personal history of nicotine dependence; Z83.71 Family history of colonic polyps
CPT/HCPCS: 45385; 88305; J7120

== ENCOUNTER → 2019-01-26 06:45 | Outpatient (CLI) | payer MEDICARE, OTHER, SELFPAY ==
[2018-08-04 07:34] VITALS: BMI 26.2
--- NOTE | 2019-01-26 14:48 | PFTCOMP ---
COMPLETE PULMONARY FUNCTION TEST INTERPRETATION Brief HPI: Patient is a 73 year old male, currently under the care of myself, who presents to [facility] for complete pulmonary function tests secondary to diagnosis of COPD. Respiratory therapist reports good effort and reproducible results. Interpretation: Forced expiration spirometry shows a very severe large airways obstructive ventilatory defect with an FEV1 of 41% predicted. There is a significant bronchodilator response in FVC and FEV1 by strict ATS criteria. Spirograms are of good quality and plateau slowly, indicating slowly emptying areas of the lungs. The respiratory flow volume loop shows decreased expiratory flow rates at all lung volumes consistent with airway obstruction. Lung volumes by body plethysmography show a normal total lung capacity at 7.12 L, 110% predicted. FRC and RV are elevated out of proportion. Lung volume measurements are consistent with hyperinflation and air-trapping. Diffusion capacity by carbon monoxide is normal at 80% predicted. The airway resistance is elevated. Compared to previous pulmonary function tests from 04/16/2018, there has been a significant decrease in FVC, FEV1 and TLC by 25%, 29% and 17% respectively. Impression: Partially reversible very severe large airways obstructive ventilatory defect and a pattern consistent with COPD/asthma overlap syndrome. There has been worsening compared to previous.
== END ==
PROVIDERS: Family Provider Family Medicine; PCP Family Medicine; Referring Provider Internal Medicine Critical Care Medicine; Visit Provider Internal Medicine Critical Care Medicine
DX: J44.9 Chronic obstructive pulmonary disease, unspecified (principal); Z72.0 Tobacco use
CPT/HCPCS: 94060; 94726; 94729

== ENCOUNTER → 2019-01-27 08:51 | Outpatient (CLI) | payer MEDICARE, OTHER, SELFPAY ==
[2018-08-04 07:34] VITALS: BMI 26.2
[2019-01-27 09:00] VITALS: PULSE 102; PULSE 104; PULSE 106; PULSE 107; PULSE 96; PULSE 97; O2SAT 96; O2SAT 97; O2SAT 98
--- NOTE | 2019-01-27 14:58 | PCM.PSN.6M ---
PSN 6 Minute Walk Test - 6 Minute Walk Test 6 Minute Walk Test: 6 Minute Walk Test PSN:6-Minute Walk Test Start: 01/27/19 09:49 Freq: Status: Active Protocol: RESP.6MINW Document 01/27/19 09:00 EW (Rec: 01/27/19 09:52 EW [id number]) 6 Minute Walk Test Date Performed 01/27/19 Time Performed 09:00 Height 5 ft 9 in Weight: 81.647 kg Weight in Pounds 180.[address]: Murtaza Tolentino Assistive device used: None Pre-test Oxygen Delivery Method Room Air Pulse Ox (%) 97 Pulse Rate (60-100 beats/min) 97 Dyspnea Jam Scale (0-10) 0 Exertion Jam Scale (6-20) 8 1st minute Oxygen Delivery Method Room Air Pulse Ox (%) 97 Pulse Rate (60-100 beats/min) 102 H 2nd minute Oxygen Delivery Method Room Air Pulse Ox (%) 97 Pulse Rate (60-100 beats/min) 107 H 3rd minute Oxygen Delivery Method Room Air Pulse Ox (%) 96 Pulse Rate (60-100 beats/min) 106 H 4th minute Oxygen Delivery Method Room Air Pulse Ox (%) 96 Pulse Rate (60-100 beats/min) 104 H 5th minute Oxygen Delivery Method Room Air Pulse Ox (%) 97 Pulse Rate (60-100 beats/min) 106 H 6th minute Oxygen Delivery Method Room Air Pulse Ox (%) 97 Pulse Rate (60-100 beats/min) 107 H Post-test Oxygen Delivery Method Room Air Pulse Ox (%) 98 Pulse Rate (60-100 beats/min) 96 Dyspnea Jam Scale (0-10) 1 Exertion Jam Scale (6-20) 9 Full Laps Walked 19 Partial Lap, Number of Tiles Walked 0 Total Distance Walked (ft) 1121 - Interpretation Interpretation: Patient was able to ambulate 1121 feet over the course of 6 minutes on room air with no assistive devices or breaks. The patient did have persistent tachycardia with a peak heart rate of 107 bpm, but no significant desaturation. These findings are consistent with a cardiovascular limitation exercise tolerance. - Recommendations Recommendations: No supplemental oxygen is indicated at this time.
== END ==
PROVIDERS: Family Provider Family Medicine; PCP Family Medicine; Referring Provider Internal Medicine Critical Care Medicine; Visit Provider Internal Medicine Critical Care Medicine
DX: J44.9 Chronic obstructive pulmonary disease, unspecified (principal); Z72.0 Tobacco use
CPT/HCPCS: 94618

== ENCOUNTER → 2019-05-11 07:59 | Outpatient (CLI) | payer MEDICARE, OTHER, SELFPAY ==
[2019-02-08 07:41] VITALS: BMI 26.2
--- NOTE | 2019-05-11 08:00 | CT_ITS ---
STUDY: LOW DOSE CT LUNG CANCER SCREENING REASON FOR EXAM: Male, 73 years old. Tobacco use, smokes less than 1/2 pack per day x 58 years, SOB on exertion, COPD. RADIATION DOSAGE (If Supplied By Facility): CTDIvol = ( 3.02 ) mGy, DLP = ( 115.13 ) mGycm TECHNIQUE: No contrast was administered. Low dose technique was utilized (average mAS-38 and kVp 120). 1.25 mm axial source images with a slice interval of 1.25-mm were reconstructed in lung windows. 2.5 mm axial source images with a slice interval of 2.5-mm were reconstructed in lung windows. 5.0 mm axial source images with a slice interval of 5.0-mm were reconstructed in soft tissue windows. Nodule measured using lung windows on PACS and/or independent workstation with automated measurement of minimum and maximum diameter. Nodule measurement reported as average diameter rounded to the nearest whole number. Growth is defined as an increase ins size of greater than 1.5 mm. COMPARISON: July 20, 2017. NODULES: Total lung nodules (excluding granulomas): 0 Emphysema: Diffuse emphysematous changes lungs. Endobronchial lesion: None Aorta: Stable atherosclerotic tortuosity of the thoracic aorta. Coronary arteries: Stable mild coronary artery calcifications. Heart: Normal in size Pulmonary artery: Normal Mediastinal nodes: Nonspecific subcentimeter mediastinal lymph nodes. Other chest and abdominal findings: Degenerative changes of the thoracic spine. CT/Low Dose CT Lung Screening IMPRESSION: Lung-RADS category 1 - Continue annual screening with LDCT in 12 months. IMPORTANT NOTES FOR USE: ACR Lung-RADS Version 1.0 Assessment Categories Release Date: August 23, 2013 Category: Coded 0-4 bases on nodule(s) with highest degree of suspicion. Negative screen is defined as categories 1 and 2; a positive screen is defined as categories 3 and 4. Category 3 and 4A nodules that are unchanged on interval CT should be coded as category 2, and individuals returned to screening in 12 months. Category 4X: Category 3 or 4 nodules with additional imaging findings that increase the suspicion of lung cancer, such as spiculation, GGN that doubles in size in 1 year, enlarged lymph notes, etc. Category Modifiers: S (significant finding unrelated to lung cancer) and C (prior history of treated lung cancer) may be added to the 0-4 Lung-RADS Electronically Signed: Fly Reyes DO at 22:47 EST Tel [phone], Service support ,
== END ==
PROVIDERS: Family Provider Family Medicine; PCP Family Medicine; Referring Provider Nurse Practitioner Acute Care; Visit Provider Nurse Practitioner Acute Care
DX: F17.200 Nicotine dependence, unspecified, uncomplicated (principal); Z87.891 Personal history of nicotine dependence
CPT/HCPCS: G0297

== ENCOUNTER → 2020-01-31 10:49 | Outpatient (CLI) | payer MEDICARE, OTHER, SELFPAY ==
[2019-11-29 07:49] VITALS: BMI 26.1
--- NOTE | 2020-01-31 10:53 | RAD_ITS ---
STUDY: X-RAY - PELVIS AND LEFT HIP REASON FOR EXAM: Left hip pain beginning recently, no specific injury. TECHNIQUE: 2 views of the pelvis and hip. COMPARISON: None. FINDINGS: There is vascular calcification and pelvic phleboliths. Normal bilateral iliac wings, sacroiliac joints and visualized sacrum. Normal bilateral superior and inferior pubic rami. There are mild degenerative changes of the pubic symphysis. Normal bilateral ischial tuberosities. Normal visualized femoral head. Normal acetabulum. There is mild joint space narrowing of the superior medial left hip joint. RAD/HIP, UNI W/ Pelvis 2-3 Views IMPRESSION: Mild left hip arthrosis. Electronically Signed: Eliezer Velasco MD at 12:52 EDT Tel , Service support ,
== END ==
PROVIDERS: PCP Family Medicine; Referring Provider Family Medicine; Visit Provider Family Medicine
DX: M25.552 Pain in left hip (principal)
CPT/HCPCS: 73502

== ENCOUNTER → 2020-05-11 08:12 | Outpatient (CLI) | payer MEDICARE, OTHER, SELFPAY ==
[2019-11-29 07:49] VITALS: BMI 26.1
--- NOTE | 2020-05-11 08:15 | CT_ITS ---
STUDY: LOW DOSE CT LUNG CANCER SCREENING REASON FOR EXAM: Male, 74 years old. TOBACCO ABUSE -- +SMOKER 1 PACK PER EVERY 3 DAYS -- X58 YEARS -- HX-BLADDER CA W/ SURG ONLY RADIATION DOSAGE (If Supplied By Facility): CTDIvol = ( 2.55 ) mGy, DLP = ( 90.60 ) mGycm TECHNIQUE: No contrast was administered. Low dose technique was utilized (average mAS-38 and kVp 120). 1.25 mm axial source images with a slice interval of 1.25-mm were reconstructed in lung windows. 2.5 mm axial source images with a slice interval of 2.5-mm were reconstructed in lung windows. 5.0 mm axial source images with a slice interval of 5.0-mm were reconstructed in soft tissue windows. Nodule measured using lung windows on PACS and/or independent workstation with automated measurement of minimum and maximum diameter. Nodule measurement reported as average diameter rounded to the nearest whole number. Growth is defined as an increase ins size of greater than 1.5 mm. COMPARISON: Comparison is made with prior study dated 05/11/2019. NODULES: Stable 1 cm pleural-based nodule in the posterior medial segment of the right upper lobe as seen on axial image #84. This most likely represents a focal area of scarring. Emphysema: Hyperinflation. Diffuse emphysematous changes more pronounced in the upper lobes with multiple bullous formation. Stable scarring at the lung apices. Endobronchial lesion: None Aorta: Atherosclerotic plaque formation of the aortic arch. Coronary arteries: Coronary artery calcification. Mediastinal nodes: Small benign appearing mediastinal lymph nodes. Other chest and abdominal findings: Degenerative changes of the thoracic spine. CT/Low Dose CT Lung Screening IMPRESSION: Lung-RADS category 2 - Continue annual screening with LDCT in 12 months. IMPORTANT NOTES FOR USE: ACR Lung-RADS Version 1.0 Assessment Categories Release Date: August 23, 2013 Category: Coded 0-4 bases on nodule(s) with highest degree of suspicion. Negative screen is defined as categories 1 and 2; a positive screen is defined as categories 3 and 4. Category 3 and 4A nodules that are unchanged on interval CT should be coded as category 2, and individuals returned to screening in 12 months. Category 4X: Category 3 or 4 nodules with additional imaging findings that increase the suspicion of lung cancer, such as spiculation, GGN that doubles in size in 1 year, enlarged lymph notes, etc. Category Modifiers: S (significant finding unrelated to lung cancer) and C (prior history of treated lung cancer) may be added to the 0-4 Lung-RADS Electronically Signed: Magan Dorantes, at 9:35 EST , Service support ,
== END ==
PROVIDERS: PCP Family Medicine; Referring Provider Nurse Practitioner Acute Care; Visit Provider Nurse Practitioner Acute Care
DX: Z12.2 Encounter for screening for malignant neoplasm of respiratory organs (principal); F17.210 Nicotine dependence, cigarettes, uncomplicated
CPT/HCPCS: 71271

== ENCOUNTER 2021-05-02 12:16 | Outpatient (CLI) | payer MEDICARE, OTHER, SELFPAY | END 2021-05-02 23:59 | disposition short-term general hospital (02) | LOC: LABSPEC 12:18 | PROVIDERS: PCP Family Medicine; Visit Provider Physician Assistant | DX: U07.1 COVID-19 (principal) | CPT/HCPCS: 87635; U0003; U0005 ==

== ENCOUNTER 2021-05-28 07:42 | Outpatient (CLI) | payer MEDICARE, OTHER, SELFPAY ==
--- NOTE | 2021-05-28 07:43 | CT_ITS ---
STUDY: LOW DOSE CT LUNG CANCER SCREENING REASON FOR EXAM: Male, 76 years old. Smoker and gt; 40 pack years RADIATION DOSAGE (If Supplied By Facility): CTDIvol = ( 3.02 ) mGy, DLP = ( 104.20 ) mGycm TECHNIQUE: No contrast was administered. Low dose technique was utilized (average mAS-38 and kVp 120). 1.25 mm axial source images with a slice interval of 1.25-mm were reconstructed in lung windows. 2.5 mm axial source images with a slice interval of 2.5-mm were reconstructed in lung windows. 5.0 mm axial source images with a slice interval of 5.0-mm were reconstructed in soft tissue windows. Nodule measured using lung windows on PACS and/or independent workstation with automated measurement of minimum and maximum diameter. Nodule measurement reported as average diameter rounded to the nearest whole number. Growth is defined as an increase ins size of greater than 1.5 mm. COMPARISON: Comparison is made with prior study dated 11/08/2020. NODULES: Stable 1 cm pleural-based nodule in the posterior medial segment of the right upper lobe as seen on axial image #85. Emphysema: Hyperinflation. Diffuse emphysematous changes with bullous formation worse in the upper lobes. Increased markings with areas of bronchiectasis in the superior segment of the right lower lobe. This has progressed as compared to prior study. Stable scarring in the left lower lobe. Endobronchial lesion: None Aorta: Atherosclerotic calcific plaques. Coronary arteries: Coronary artery calcification. Heart: Unremarkable Pulmonary artery: Unremarkable Mediastinal nodes: Small benign-appearing mediastinal lymph nodes. Other chest and abdominal findings: Degenerative changes of the thoracic spine. CT/Low Dose CT Lung Screening IMPRESSION: Lung-RADS category 2 - Continue annual screening with LDCT in 12 months. IMPORTANT NOTES FOR USE: ACR Lung-RADS Version 1.1 Assessment Categories Release Date: 2018 Category: Coded 0-4 bases on nodule(s) with highest degree of suspicion. Negative screen is defined as categories 1 and 2; a positive screen is defined as categories 3 and 4. Category 3 and 4A nodules that are unchanged on interval CT should be coded as category 2, and individuals returned to screening in 12 months. Category 4X: Category 3 or 4 nodules with additional imaging findings that increase the suspicion of lung cancer, such as spiculation, GGN that doubles in size in 1 year, enlarged lymph notes, etc. Category Modifiers: S (significant finding unrelated to lung cancer) Electronically Signed: Magan Dorantes MD at 8:52 EST ,
== END 2021-05-28 23:59 | disposition short-term general hospital (02) ==
PROVIDERS: PCP Family Medicine; Referring Provider Nurse Practitioner Acute Care; Visit Provider Nurse Practitioner Acute Care
DX: F17.210 Nicotine dependence, cigarettes, uncomplicated (principal)
CPT/HCPCS: 71271

== ENCOUNTER 2021-06-28 08:27 | Outpatient (CLI) | payer MEDICARE, OTHER, SELFPAY ==
--- NOTE | 2021-06-28 15:43 | PFTCOMP_ITS ---
COMPLETE PULMONARY FUNCTION TEST INTERPRETATION Brief HPI: Patient is a 76 year old male, currently under the care of Kierra Delgado, who presents to [facility] for complete pulmonary function tests secondary to diagnosis of COPD. Respiratory therapist reports good effort and reproducible results. Interpretation: Forced expiration spirometry shows a moderate large airways obstructive ventilatory defect with an FEV1 of 67% predicted. There is no significant bronchodilator response by strict ATS criteria. Spirograms are of good quality and plateau slowly, indicating slowly emptying areas of the lungs. The respiratory flow volume loop shows decreased expiratory flow rates at all lung volumes consistent with airway obstruction. Lung volumes by body plethysmography show a decreased total lung capacity at 4.93 L, 79% predicted. All other lung volumes are reduced symmetrically. Diffusion capacity by carbon monoxide is decreased at 59% predicted. The airway resistance is elevated. Compared to previous pulmonary function tests from 01/26/2019, there has been a significant improvement in spirometry, but reduction in DLCO and lung volumes. Impression: Irreversible moderate mixed ventilatory defect with a symmetric reduction diffusing capacity
== END 2021-06-28 23:59 | disposition home or self-care (01) ==
PROVIDERS: PCP Family Medicine; Referring Provider Nurse Practitioner Acute Care; Visit Provider Nurse Practitioner Acute Care
DX: J44.9 Chronic obstructive pulmonary disease, unspecified (principal)
CPT/HCPCS: 94060; 94726; 94729

== ENCOUNTER 2021-07-03 10:58 | Outpatient (CLI) | payer MEDICARE, OTHER, SELFPAY ==
[2021-07-03 11:15] VITALS: PULSE 103; PULSE 105; PULSE 113; PULSE 114; PULSE 115; PULSE 116; PULSE 118; PULSE 119; O2SAT 97; O2SAT 98
--- NOTE | 2021-07-04 10:26 | WT_ITS ---
PSN 6 Minute Walk Test 6 Minute Walk Test 6 Minute Walk Test: 6 Minute Walk Test PSN:6-Minute Walk Test Start: 07/03/21 11:20 Freq: Status: Active Protocol: RESP.6MINW Document 07/03/21 11:15 [facility] (Rec: 07/03/21 11:24 [facility] [id number]) 6 Minute Walk Test Date Performed 07/03/21 Time Performed 11:15 Height 5 ft 9 in Weight: 81.647 kg Weight in Pounds 180.[address]: Andrew Assistive device used: None Pre-test Oxygen Delivery Method Room Air Pulse Ox (%) 98 Pulse Rate (60-100 beats/min) 105 H Dyspnea Jam Scale (0-10) 0 Exertion Jam Scale (6-20) 6 1st minute Oxygen Delivery Method Room Air Pulse Ox (%) 98 Pulse Rate (60-100 beats/min) 113 H 2nd minute Oxygen Delivery Method Room Air Pulse Ox (%) 98 Pulse Rate (60-100 beats/min) 114 H 3rd minute Oxygen Delivery Method Room Air Pulse Ox (%) 98 Pulse Rate (60-100 beats/min) 116 H 4th minute Oxygen Delivery Method Room Air Pulse Ox (%) 97 Pulse Rate (60-100 beats/min) 115 H 5th minute Oxygen Delivery Method Room Air Pulse Ox (%) 97 Pulse Rate (60-100 beats/min) 118 H 6th minute Oxygen Delivery Method Room Air Pulse Ox (%) 98 Pulse Rate (60-100 beats/min) 119 H Dyspnea Jam Scale (0-10) 0 Exertion Jam Scale (6-20) 11 Post-test Oxygen Delivery Method Room Air Pulse Ox (%) 98 Pulse Rate (60-100 beats/min) 103 H Full Laps Walked 17 Partial Lap, Number of Tiles Walked 0 Total Distance Walked (ft) 1003 Interpretation Interpretation: The patient ambulated 1003 feet over the course of 6 minutes beginning on room air without assistive devices. Pretesting oxygen saturation was noted to be 98% on room air. With ambulation, the sheri oxygen saturation was 97%. There was no significant exertional oxygen desaturation. Recommendations Recommendations: There is no indication for the use of supplemental oxygen at this time.
== END 2021-07-03 23:59 | disposition home or self-care (01) ==
LOC: PSN 11:01
PROVIDERS: PCP Family Medicine; Referring Provider Nurse Practitioner Acute Care; Visit Provider Nurse Practitioner Acute Care
DX: J44.9 Chronic obstructive pulmonary disease, unspecified (principal)
CPT/HCPCS: 94618

== ENCOUNTER → 2021-08-16 | Outpatient (CLI) | payer MEDICARE, OTHER, SELFPAY ==
--- NOTE | 2021-08-17 09:04 | SUR.PREOP ---
Pt arriving to hospital for colonoscopy and verbalizing to Gerardo Ding RN stool is formed despite following bowel prep instructions. Endo charge nurse Curry Elaine RN made aware however Dr. Staley is unable to be notified at this time. Pt informed there will be a delay in notifying Dr. Staley. Pt deciding to leave hospital and plans to reschedule procedure. Curry Elaine RN made aware will inform Dr. Staley's office to contact pt.
== END | disposition home or self-care (01) ==
LOC: AC 08-17 09:44 → PAT 09-11 12:10
PROVIDERS: PCP Family Medicine; Referring Provider Surgery; Visit Provider Surgery
DX: Z20.828 Contact with and (suspected) exposure to other viral communicable diseases (principal)
CPT/HCPCS: 87426; C9803; J7120

== ENCOUNTER 2021-11-24 14:04 | Emergency (ER) | payer MEDICARE, OTHER, SELFPAY ==
[2021-11-24 14:05] VITALS: BP 188/105; PULSE 99; RESP 18; TEMP 36.5; O2SAT 96; BMI 26.3
--- NOTE | 2021-11-24 14:21 | EKG12_ITS ---
Test Reason : CP Blood Pressure : / mmHG Vent. Rate : 097 BPM Atrial Rate : 097 BPM P-R Int : 156 ms QRS Dur : 074 ms QT Int : 334 ms P-R-T Axes : 069 065 056 degrees QTc Int : 424 ms Normal sinus rhythm Normal ECG Confirmed by ROSSY CANTRELL, ROBYN ([id number]), metropolitan editor DASHA VICENTE ([id number]) on 11/27/2021 12:59:43 PM Referred By: POLO Confirmed By:ROBYN BLAIR MD
[2021-11-24 14:33] LABS: Absolute Lymphocyte Count 2.68 X10^3/uL (0.83-4.51); Absolute Neutrophil Count 8.7 X10^3/uL (2.0-7.7); Basophil# 0.06 X10^3/uL; Basophil% 0.5 % (0-1); Eosinophil# 0.28 X10^3/uL; Eosinophils% 2.2 % (0-5); Hematocrit 42.9 % (40-54); Hemoglobin 14.4 g/dL (13.0-16.5); Lymphocyte # 2.68 X10^3/ul (0.83-4.51); Mean Corp Hgb Conc 33.6 g/dL (32-36); Mean Corpuscular Hgb 30.6 pg (27.0-32.0); Mean Corpuscular Volume 91.3 fL (80-94); Mean Platelet Vol. 10.3 fl (6.2-12.0); Monocyte# 0.94 X10^3/uL; Monocyte% 7.4 % (0-10); NRBC Flagged by Analyzer 0 % (0-5); Neutrophil # 8.73 X10^3/uL (2.7-7.7); Neutrophil % 68.4 % (47-70); Platelet Count 274 K/mm3 (150-450); RBC Distribution Width CV 13.6 % (11.6-14.6); RBC Distribution Width SD 45.9 fl (35.1-43.9); White Blood Count 12.8 K/mm3 (4.4-11.0)
--- NOTE | 2021-11-24 14:35 | RAD_ITS ---
STUDY: X-RAY CHEST REASON FOR EXAM: Male, 76 years old. chest pain TECHNIQUE: AP COMPARISON: 07/20/2017 FINDINGS: There are interstitial fibrotic changes of the lungs. EKG leads project over the chest. No airspace consolidation. There is no demonstrated pleural abnormality. Normal size heart. Normal mediastinum and melissa. Normal visualized pulmonary arteries. Normal visualized aortic arch and descending thoracic aorta. There is demineralization of the osseous structures. Normal visualized ribs, clavicles, and shoulders. There is no demonstrated abnormality of the visualized soft tissue structures of the upper abdomen. RAD/Chest 1 View (Portable) IMPRESSION: Nonacute portable x-ray examination of the chest. Electronically Signed: Amish Willis MD ([place]) at 14:50 EDT ,
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
[2021-11-24 14:47] LABS: BUN 15 mg/dL (7-18); Creatinine, Serum 0.94 mg/dL (0.70-1.30); Estimated Creatinine Clearance 68.95 ml/min; Glucose 97 mg/dL (74-106)
[2021-11-24 14:48] LABS: Anion Gap 4 (5-15); BUN/Creat Ratio 15.9 RATIO (10-20); Calcium,Total 9.2 mg/dL (8.5-10.1); Chloride 108 mmol/L (98-107); EST Glomerular Filtration Rate 83 mL/min (>60); Est Glom Filt Rate - Afr Amer 100 mL/min (>60); Potassium 4.2 mmol/L (3.5-5.1); Sodium Level 139 mmol/L (136-145); Troponin-I HS (w/2H Reflex) 5 pg/mL (3.0-78.0)
[2021-11-24 15:22] VITALS: BP 154/97; PULSE 75; RESP 16; O2SAT 96
[2021-11-24 16:26] LABS: Reflex Troponin-HS? (from REC) Y
[2021-11-24 16:48] LABS: Troponin-I HS 4 pg/mL (3.0-78.0)
[2021-11-24 17:17] VITALS: BP 157/98; PULSE 78; RESP 16; O2SAT 98
== END 2021-11-24 17:18 | disposition home or self-care (01) ==
PROVIDERS: Emergency Provider Emergency Medicine; PCP Family Medicine; Visit Provider Emergency Medicine
DX: R07.9 Chest pain, unspecified (principal); J44.9 Chronic obstructive pulmonary disease, unspecified; F17.210 Nicotine dependence, cigarettes, uncomplicated; Z85.51 Personal history of malignant neoplasm of bladder
CPT/HCPCS: 71045; 80048; 84484; 85025; 93005; 99284; A4216

== ENCOUNTER → 2022-05-29 | Outpatient (CLI) | payer MEDICARE, OTHER, SELFPAY ==
--- NOTE | 2022-05-29 08:16 | CT_ITS ---
STUDY: LOW DOSE CT LUNG CANCER SCREENING REASON FOR EXAM: Male, 77 years old. and gt;40 pack years copd RADIATION DOSAGE (If Supplied By Facility): CTDIvol = ( 3.02 ) mGy, DLP = ( 121.54 ) mGycm TECHNIQUE: No contrast was administered. Low dose technique was utilized (average mAS-38 and kVp 120). 1.25 mm axial source images with a slice interval of 1.25-mm were reconstructed in lung windows. 2.5 mm axial source images with a slice interval of 2.5-mm were reconstructed in lung windows. 5.0 mm axial source images with a slice interval of 5.0-mm were reconstructed in soft tissue windows. COMPARISON: Comparison is made with prior examination dated 05/28/2021. NODULES: Stable 1 cm pleural-based nodule in the posterior medial segment of the right upper lobe as seen on axial image #93. Emphysema: Diffuse emphysematous changes with scarring at the lung apices. Diffuse bilateral bullous formation worse in the right upper lobe. The previously seen changes in the medial superior segment of the right lower lobe have cleared. Endobronchial lesion: None Aorta: Atherosclerotic calcific plaques of the aortic arch. CORONARY ARTERIES: Coronary artery calcification is seen. Heart: Unremarkable Pulmonary artery: Unremarkable Mediastinal nodes: Stable small benign-appearing mediastinal lymph nodes. Other chest and abdominal findings: CT/Low Dose CT Lung Screening IMPRESSION: Lung-RADS category 2 - Continue annual screening with LDCT in 12 months. IMPORTANT NOTES FOR USE: ACR Lung-RADS Version 1.1 Assessment Categories Release Date: 2018 Category: Coded 0-4 bases on nodule(s) with highest degree of suspicion. Negative screen is defined as categories 1 and 2; a positive screen is defined as categories 3 and 4. Category 3 and 4A nodules that are unchanged on interval CT should be coded as category 2, and individuals returned to screening in 12 months. Category 4X: Category 3 or 4 nodules with additional imaging findings that increase the suspicion of lung cancer, such as spiculation, GGN that doubles in size in 1 year, enlarged lymph notes, etc. Category Modifiers: S (significant finding unrelated to lung cancer) Electronically Signed: Magan Dorantes MD at 13:47 EST ,
== END | disposition home or self-care (01) ==
LOC: CT 08:15
PROVIDERS: Referring Provider Nurse Practitioner Acute Care; Visit Provider Nurse Practitioner Acute Care
DX: Z12.2 Encounter for screening for malignant neoplasm of respiratory organs (principal); F17.210 Nicotine dependence, cigarettes, uncomplicated
CPT/HCPCS: 71271

== ENCOUNTER 2022-07-08 21:44 | Emergency (ER) | payer MEDICARE, OTHER, SELFPAY ==
[2022-07-08] VITALS (7 sets, daily range): BP systolic 125–221; BP diastolic 50–103; PULSE 105–129; RESP 20–26; TEMP 36.3–36.5; O2SAT 92–98; BMI 26.9
--- NOTE | 2022-07-08 22:08 | EKG12_ITS ---
Test Reason : DYSRHYTHMIA Blood Pressure : / mmHG Vent. Rate : 124 BPM Atrial Rate : 124 BPM P-R Int : 144 ms QRS Dur : 076 ms QT Int : 308 ms P-R-T Axes : 073 066 064 degrees QTc Int : 442 ms Sinus tachycardia Otherwise normal ECG Confirmed by IFEANYI CANTRELL, MEGHAN ([id number]), photo editor DASHA VICENTE ([id number]) on 07/10/2022 9:51:05 AM Referred By: LIBRA Confirmed By:MEGHAN SUGGS MD
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
[2022-07-08] MEDS: Ipratropium/Albuterol Sulfate 3 ML AMPUL.NEB INHALATION (22:13)
[2022-07-08] MEDS: dilTIAZem 25 MG/5 ML Vial 10 MG IV BOLUS (22:16)
[2022-07-08] MEDS: MethylPREDNISolone 125 MG/2 ML Vial IV (22:16)
[2022-07-08 22:18] LABS: Absolute Lymphocyte Count 1.05 X10^3/uL (0.83-4.51); Absolute Neutrophil Count 18.6 X10^3/uL (2.0-7.7); Basophil# 0.06 X10^3/uL; Basophil% 0.3 % (0-1); Eosinophil# 0.03 X10^3/uL; Eosinophils% 0.1 % (0-5); Hematocrit 42.7 % (40-54); Hemoglobin 14.2 g/dL (13.0-16.5); Lymphocyte # 1.05 X10^3/ul (0.83-4.51); Lymphocyte % 4.9 % (19-41); Mean Corp Hgb Conc 33.3 g/dL (32-36); Mean Corpuscular Hgb 30.3 pg (27.0-32.0); Mean Platelet Vol. 10.3 fl (6.2-12.0); Monocyte# 1.45 X10^3/uL; Monocyte% 6.8 % (0-10); NRBC Flagged by Analyzer 0 % (0-5); Neutrophil # 18.55 X10^3/uL (2.7-7.7); Neutrophil % 87.4 % (47-70); Platelet Count 246 K/mm3 (150-450); Red Blood Count 4.69 M/mm3 (4.6-6.2); White Blood Count 21.2 K/mm3 (4.4-11.0)
[2022-07-08 22:35] LABS: Anion Gap 8 (5-15); BUN 17 mg/dL (7-18); BUN/Creat Ratio 15.2 RATIO (10-20); Calcium,Total 9.4 mg/dL (8.5-10.1); Chloride 105 mmol/L (98-107); Creatinine, Serum 1.12 mg/dL (0.70-1.30); EST Glomerular Filtration Rate 68 mL/min (>60); Est Glom Filt Rate - Afr Amer 82 mL/min (>60); Estimated Creatinine Clearance 56.99 ml/min; Glucose 152 mg/dL (74-106); Magnesium 1.8 mg/dL (1.6-2.6); Potassium 4.2 mmol/L (3.5-5.1); Sodium Level 137 mmol/L (136-145)
--- NOTE | 2022-07-08 22:35 | RAD_ITS ---
INDICATION: Cough EXAMINATION/TECHNIQUE: X-RAY - XR Chest 1 View COMPARISON: November 24, 2021 chest x-ray. CT chest July 20, 2017. FINDINGS: LINES/DEVICES: None. LUNGS: No focal consolidation or pleural effusion. Interstitial coarsening in the lung bases, hyperlucency in the lung apices, emphysematous changes. No pneumothorax. MEDIASTINUM AND CARDIOVASCULAR STRUCTURES: Cardiac silhouette not enlarged. Aortic arch calcification. Normal pulmonary vascularity. BONES AND SOFT TISSUES: Stable degenerative changes. RAD/Chest 1 View (Portable) IMPRESSION: No acute cardiopulmonary disease. Emphysematous changes. Stable chest. Electronically Signed: Benoit Jones MD at 23:25 EDT ,
[2022-07-08 22:52] LABS: BNP,B-Type NATRIURETIC PEPTIDE 25.7 pg/mL (0-100)
[2022-07-09 00:15] VITALS: BP 109/96; PULSE 97; RESP 18; O2SAT 93
[2022-07-09] MEDS: Doxycycline 100 MG CAPSULE PO (00:19)
== END 2022-07-09 00:31 | disposition home or self-care (01) ==
PROVIDERS: Emergency Provider Emergency Medicine; Visit Provider Emergency Medicine
DX: J44.1 Chronic obstructive pulmonary disease with (acute) exacerbation (principal); I10 Essential (primary) hypertension; F17.210 Nicotine dependence, cigarettes, uncomplicated; Z79.52 Long term (current) use of systemic steroids; Z20.822 Contact with and (suspected) exposure to COVID-19
CPT/HCPCS: 71045; 80048; 83735; 83880; 85025; 87428; 93005; 94640; 96374; 96375; 99252; 99285; A4216; G0463

== ENCOUNTER → 2023-03-01 | Outpatient (CLI) | payer MEDICARE, OTHER, SELFPAY ==
--- NOTE | 2023-02-28 | CYSPIN_PTH ---
PATIENT: GEE RENE LOC: LAB U#:[id number] AGE/SX: 77/M ROOM: RE03/01/[address]: Dr. Lucía Whitten MD : [id number] BED: DIS: 03/01/2023 SPEC #: [id number] RECD: 03/01/23 08:40 STATUS: MARTIN [place] #: [id number] LORNA: 02/28/23 00:[address]: Lucía Whitten DEPT: CYTOLOGY RECD BY: Deepali uNnez Tissues: Urine Procedures: Pap Stain (control) Special Stain Group II Cytospin Fluid HEADER OPERATION: Not noted PRE-OP DIAGNOSIS: Not noted TISSUE SUBMITTED: Urine DIAGNOSIS CYTOLOGY Urine for cytology (cytospin): Atypical urothelial cells noted. (Arabella system III). Acute inflammation. SJ: 03/04/2023 COMMENT Correlation with clinical findings and appropriate follow up are necessary. The Arabella System for urine cytology diagnostic categorization was used in the evaluation of this case. CYTOLOGY STUDY Slides are reviewed. CYTOLOGY GROSS Received is 60 ml of yellow cloudy fluid labeled with the patient's name and and designated per the requisition as urine. Submitted for cytology preparation. /FAROOQ:jan 03/03/2023 TC: 5 CPT: 26710
[2023-03-01 08:36] LABS: Bacteria 0 SEEN /hpf (None Seen); Mucous, Urine 0 SEEN /hpf (<or=2+); Red Blood Cells-Urine 0 SEEN /hpf (0-5); Squamous Epithelial Cells - UA 0 SEEN /hpf (0-5); White Blood Cells 0 SEEN /hpf (0-5)
[2023-03-01 08:41] LABS: Cytology, Body Fluid / CSF SEE PATHOLOGY REPORT
[2023-03-01 09:01] LABS: Basophil# 0.05 X10^3/uL; Basophil% 0.5 % (0-1); Eosinophil# 0.23 X10^3/uL; Eosinophils% 2.2 % (0-5); Hematocrit 45.5 % (40-54); Hemoglobin 15.2 g/dL (13.0-16.5); Lymphocyte % 21.3 % (19-41); Mean Corp Hgb Conc 33.4 g/dL (32-36); Mean Corpuscular Hgb 30.8 pg (27.0-32.0); Mean Corpuscular Volume 92.3 fL (80-94); Mean Platelet Vol. 10.2 fl (6.2-12.0); Monocyte# 0.85 X10^3/uL; Monocyte% 8.2 % (0-10); NRBC Flagged by Analyzer 0 % (0-5); Neutrophil # 6.97 X10^3/uL (2.7-7.7); Neutrophil % 67.4 % (47-70); Platelet Count 221 K/mm3 (150-450); RBC Distribution Width CV 13.2 % (11.6-14.6); RBC Distribution Width SD 44.6 fl (35.1-43.9); Red Blood Count 4.93 M/mm3 (4.6-6.2); White Blood Count 10.3 K/mm3 (4.4-11.0)
[2023-03-01 09:25] LABS: Color, Urine Yellow (Yellow); Glucose, Dipstick Normal (Normal); Ketone-Dipstick Negative (Negative); Leukocyte Esterase-Dipstick Negative /ul (Negative); Nitrite-Dipstick Negative (Negative); Occult Blood-Urine Negative /ul (Negative); Protein-Dipstick Negative (Negative); Urine Bilirubin Dipstick Negative (Negative); Urine Clarity Clear (Clear); Urine Urobilinogen Normal (Normal)
[2023-03-01 09:52] LABS: ALB/GLOB Ratio 0.9 RATIO (0.9-2.4); AST(SGOT) 13 U/L (15-37); Alanine Aminotransfer ALT/SGPT 15 U/L (16-61); Albumin, Serum 3.6 g/dL (3.2-5.0); Alkaline Phosphatase 63 U/L (45-117); Anion Gap 3 (5-15); BUN 18 mg/dL (7-18); BUN/Creat Ratio 17.5 RATIO (10-20); Calcium,Total 8.8 mg/dL (8.5-10.1); Chloride 107 mmol/L (98-107); Cholesterol 152 mg/dL (200); Creatinine, Serum 1.03 mg/dL (0.70-1.30); EST Glomerular Filtration Rate 75 mL/min (>60); Est Glom Filt Rate - Afr Amer 90 mL/min (>60); Globulin 3.9 g/dL (2.2-4.2); Glucose 98 mg/dL (74-106); High Density Lipoprotein 32 mg/dL; PSA,Total - Annual Screen 3.68 ng/mL (0.00-4.00); Potassium 4.6 mmol/L (3.5-5.1); Protein, Total 7.5 g/dL (6.4-8.2); Sodium Level 138 mmol/L (136-145); Thyroid Stim Hormone (TSH) 2.29 uIU/mL (0.358-3.74); Triglycerides 108 mg/dL; Very Low Density Lipoprotein 22 mg/dL (5-40)
[2023-03-03 08:39] LABS: Vitamin D,25 Hydroxy 25.2 ng/mL
== END | disposition home or self-care (01) ==
LOC: LAB 08:31
PROVIDERS: PCP Internal Medicine; Referring Provider Internal Medicine; Visit Provider Internal Medicine
DX: J44.1 Chronic obstructive pulmonary disease with (acute) exacerbation (principal); Z85.51 Personal history of malignant neoplasm of bladder; Z87.891 Personal history of nicotine dependence; E78.5 Hyperlipidemia, unspecified; E55.9 Vitamin D deficiency, unspecified; Z12.5 Encounter for screening for malignant neoplasm of prostate
CPT/HCPCS: 36415; 80053; 80061; 81001; 82306; 84153; 84443; 85025; 88108; 88313; G0103

== ENCOUNTER 2023-04-03 12:46 | Day surgery (SDC) | payer MEDICARE, OTHER, SELFPAY ==
[2023-04-03] VITALS (8 sets, daily range): BP systolic 75–160; BP diastolic 51–95; PULSE 79–95; RESP 16–18; TEMP 36.2; O2SAT 89–100; BMI 24.6
[2023-04-03] MEDS: Lactated Ringers 1,000 ML 15 ML IV (13:18)
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
--- NOTE | 2023-04-03 14:00 | COLBX_PTH ---
PATIENT: GEE RENE LOC: EN U#:[id number] AGE/SX: 77/M ROOM: RE04/03/[address]: Dr. Emeterio Staley MD : 1945 BED: DIS: 04/03/2023 SPEC #: [id number] RECD: 04/04/23 11:36 STATUS: MARTIN REAlex #: [id number] LORNA: 04/03/23 14:[address]: Emeterio Staley DEPT: SURGICAL PATHOLOGY RECD BY: Florencia Cleaning ENTERED: 04/04/23 12:25 SP TYPE: COLON BX OTHR DR: Dr. Lucía Whitten MD Tissues: Descending colon Procedures: Surgery Specimen Level IV HEADER OPERATION: Colonoscopy - open access, polypectomy PRE-OP DIAGNOSIS: History of colonic polyp TISSUE SUBMITTED: Descending polyp MICROSCOPIC DIAGNOSIS Descending colon polyp, polypectomy: Hyperplastic polyp with cautery artifacts. SJ:yanni 04/07/2023 MICROSCOPIC DESCRIPTION Slides are reviewed. GROSS DESCRIPTION Received in fixative is one container labeled with the patient's name and designated descending polyp. The specimen consists of one irregular fragment of light negro soft tissue that measures 0.5 x 0.5 x 0.1 cm. The specimen is totally submitted in one cassette. / AM:yanni 04/04/2023 TC:1 CPT: 00944
--- NOTE | 2023-04-03 14:59 | OP.CCLET_ITS ---
04/03/2023 Lucía Whitten [facility] [address] [place] [address] Re : Colonoscopy procedure for Allan Meyer Dear Dr. Whitten This procedure was performed on March. My impressions and recommendations are as follows: Impressions : - One small polyp in the sigmoid colon in the descending colon, removed with a hot snare. Resected and retrieved. Recommendations : - Discharge patient to home. - Resume previous diet. - Continue present medications. - Await pathology results. - Repeat colonoscopy after studies are complete for surveillance based on pathology results. My findings are described in the full procedure note, which is enclosed. If I can be of further assistance, please feel free to contact me at Doctor phone number(s): , Work: . Sincerely, Emeterio Staley MD 04/03/2023 2:59:06 PM This report has been signed electronically.
--- NOTE | 2023-04-03 14:59 | OP.COLON_ITS ---
Patient Name: Allan Meyer Procedure Date: 04/03/2023 2:30 PM Date of : 1945 Age: 77 Procedure: Colonoscopy Indications: High risk colon cancer surveillance: Personal history of colonic polyps Providers: Emeterio Staley MD Referring MD: Lucía Whitten Medicines: Monitored Anesthesia Care Patient Profile: This is a 77 year old male. Refer to note in patient chart for documentation of history and physical. Last Colonoscopy: 5 years ago. Complications: No immediate complications. Estimated blood loss: Minimal. Procedure: Pre-Anesthesia Assessment: - Prior to the procedure, a History and Physical was performed, and patient medications and allergies were reviewed. The patient's tolerance of previous anesthesia was also reviewed. The risks and benefits of the procedure and the sedation options and risks were discussed with the patient. All questions were answered, and informed consent was obtained. Prior Anticoagulants: The patient has taken no anticoagulant or antiplatelet agents. After reviewing the risks and benefits, the patient was deemed in satisfactory condition to undergo the procedure. After I obtained informed consent, the scope was passed under direct vision. Throughout the procedure, the patient's blood pressure, pulse, and oxygen saturations were monitored continuously. The Colonoscope was introduced through the anus and advanced to the cecum, identified by appendiceal orifice and ileocecal valve. The colonoscopy was performed without difficulty. The patient tolerated the procedure well. The quality of the bowel preparation was good. The ileocecal valve, appendiceal orifice, and rectum were photographed. Scope In: 2:40:45 PM Scope Withdrawal Time 0 hours 7 minutes 18 seconds Scope Out: 2:52:23 PM Total Procedure Duration Time 0 hours 11 minutes 38 seconds Findings: A small polyp was found in the sigmoid colon descending colon. The polyp was flat. The polyp was removed with a hot snare. Resection and retrieval were complete. Impression: - One small polyp in the sigmoid colon in the descending colon, removed with a hot snare. Resected and retrieved. Recommendation: - Discharge patient to home. - Resume previous diet. - Continue present medications. - Await pathology results. - Repeat colonoscopy after studies are complete for surveillance based on pathology results. Procedure Code(s): --- Professional --- 25643, Colonoscopy, flexible; with removal of tumor(s), polyp(s), or other lesion(s) by snare technique Diagnosis Code(s): --- Professional --- Z86.010, Personal history of colonic polyps D12.5, Benign neoplasm of sigmoid colon D12.4, Benign neoplasm of descending colon CPT copyright 2021 [employer]. All rights reserved. The codes documented in this report are preliminary and upon librarian head review may be revised to meet current compliance requirements. Emeterio Staley MD 04/03/2023 2:59:06 PM This report has been signed electronically. Number of Addenda: 0 Note Initiated On: 04/03/2023 2:30 PM
== END 2023-04-03 16:02 | disposition home or self-care (01) ==
LOC: EN 12:48 → AC 12:50
PROVIDERS: PCP Internal Medicine; Referring Provider Internal Medicine; Visit Provider Surgery
PROC: 0DJD8ZZ Inspection of Lower Intestinal Tract, Via Natural or Artificial Opening Endoscopic (ICD-10-PCS; CPT 45378; principal; 2023-04-03 13:55)
DX: Z12.11 Encounter for screening for malignant neoplasm of colon (principal); J44.9 Chronic obstructive pulmonary disease, unspecified; K63.5 Polyp of colon; F17.210 Nicotine dependence, cigarettes, uncomplicated; Z86.010 Personal history of colon polyps; Z79.51 Long term (current) use of inhaled steroids
CPT/HCPCS: 45385; 88305; J7120

== ENCOUNTER → 2023-06-04 | Outpatient (CLI) | payer MEDICARE, OTHER, SELFPAY ==
--- NOTE | 2023-06-04 07:40 | CT_ITS ---
STUDY: LOW DOSE CT LUNG CANCER SCREENING REASON FOR EXAM: Male, 78 years old. Smoker RADIATION DOSAGE (If Supplied By Facility): CTDIvol = ( 3.02 ) mGy, DLP = ( 107.22 ) mGycm TECHNIQUE: No contrast was administered. Low dose technique was utilized (average mAS-38 and kVp 120). 1.25 mm axial source images with a slice interval of 1.25-mm were reconstructed in lung windows. 2.5 mm axial source images with a slice interval of 2.5-mm were reconstructed in lung windows. 5.0 mm axial source images with a slice interval of 5.0-mm were reconstructed in soft tissue windows. COMPARISON: Comparison is made with prior examination dated May 29, 2022. NODULES: Stable 1 cm pleural-based nodule in the posterior aspect of the right upper lobe. There is a new 1.2 cm x 0.7 cm spiculated nodule in the right upper lobe as seen on axial image #121 and coronal image #99. There is a new 1.1 cm Specular nodule in the anterior aspect of the right lower lobe abutting the right major fissure as seen on axial image #139 and coronal image #170. Emphysema: Hyperinflation. Diffuse emphysematous changes with bullous formation. Endobronchial lesion: None Aorta: Atherosclerotic calcific plaques. CORONARY ARTERIES: Coronary artery calcification is seen. Heart: Unremarkable Pulmonary artery: Unremarkable Mediastinal nodes: Small benign-appearing mediastinal lymph nodes. Other chest and abdominal findings: CT/Low Dose CT Lung Screening IMPRESSION: Lung-RADS category 4B - Chest CT with or without contrast, PET/CT and/or tissue sampling can be obtained depending on the probability of malignancy and comorbidities. IMPORTANT NOTES FOR USE: ACR Lung-RADS Version 1.1 Assessment Categories Release Date: 2018 Category: Coded 0-4 bases on nodule(s) with highest degree of suspicion. Negative screen is defined as categories 1 and 2; a positive screen is defined as categories 3 and 4. Category 3 and 4A nodules that are unchanged on interval CT should be coded as category 2, and individuals returned to screening in 12 months. Category 4X: Category 3 or 4 nodules with additional imaging findings that increase the suspicion of lung cancer, such as spiculation, GGN that doubles in size in 1 year, enlarged lymph notes, etc. Category Modifiers: S (significant finding unrelated to lung cancer) Electronically Signed: Magan Dorantes MD at 9:31 EST ,
== END | disposition home or self-care (01) ==
LOC: CT 07:38
PROVIDERS: PCP Internal Medicine; Referring Provider Nurse Practitioner Acute Care; Visit Provider Nurse Practitioner Acute Care
DX: F17.210 Nicotine dependence, cigarettes, uncomplicated (principal)
CPT/HCPCS: 71271

== ENCOUNTER → 2023-06-24 | Outpatient (CLI) | payer MEDICARE, OTHER, SELFPAY ==
--- NOTE | 2023-06-24 11:00 | PET_ITS ---
EXAMINATION: FDG PET/CT ? INDICATIONS: 78-year-old male with a history of pulmonary nodularity. ? COMPARISON EXAMINATION: CT of the chest report dated 06/04/2023. ? TECHNIQUE: Following the intravenous administration of 13.65 mCi of F-18 deoxyglucose via the right antecubital fossa, multiplanar image acquisitions of the head, neck, chest, abdomen and pelvis to the level of the midthigh, obtained at one-hour post radiopharmaceutical administration contemporaneously interpreted with the current CT of the chest, abdomen and pelvis dated 06/24/[address] of the chest report dated 06/04/2023 via coregistration reveal: SERUM GLUCOSE LEVEL:? 90 mg/dL? HEIGHT:?? 70 inches WEIGHT:?? 174 pounds ? FINDINGS: ? HEAD/NECK:? There is no evidence of abnormal increased glucose metabolism in the pharyngeal mucosal space, parapharyngeal space, oropharynx, bilateral-lateral and anterior neck, hypopharynx and distribution of the larynx. ? The visualized portion of the cerebral cortical-subcortical structures demonstrate symmetric and preserved glucose metabolism. ? CHEST:? There is no quantitative scintigraphic evidence of abnormal increased glucose metabolism within the context of the bilateral hemithorax pulmonary parenchyma, right and left hemithorax at the pleural interface, mediastinal structures, and left-right thoracic perihilum. Prominent uptake is defined in the ascending and descending thoracic aorta, commensurate with activated leukocytes associated with atherosclerotic plaque formation. ? CT of the chest demonstrates the following anatomic characteristics: Emphysematous changes are defined in the upper-mid lung zones. Parenchymal nodules and pleural-based densities in the bilateral hemithorax demonstrate no evidence of increased tracer uptake. Bilateral axillary soft tissue densities are ametabolic. Mediastinal soft tissue reveals no evidence of increased tracer uptake.. ? ABDOMEN/PELVIS:? Normal physiologic distribution of the radiopharmaceutical is identified in the hepatic and splenic parenchyma, both renal units, urinary bladder, and visualized intestinal tract. ? CT of the abdomen and pelvis is remarkable for the following: Atherosclerotic calcification is defined in the abdominal aorta without evidence of dilatation, aneurysm formation. Pelvic arterial calcification is observed. Right and left inguinal soft tissue densities are ametabolic. Calcified phlebolith formation is identified in the bilateral lower hemipelvis. Calcification is noted in the pancreatic body. ? SKELETAL:? Degenerative changes defined in the thoracic and lumbar spine demonstrate no evidence of increased glucose metabolism. There are no sclerotic, mixed sclerotic-lytic, or primarily lytic changes defined in the axial skeletal structures with evidence of increased FDG uptake. ? PET/PET/CT Tumor Base -Thigh Init IMPRESSION: 1. NEGATIVE EXAMINATION. There is no definitive quantitatively significant scintigraphic evidence of viable neoplasm. 2. Meticulous attention paid to the bilateral hemithorax pulmonary parenchyma pleural interface demonstrates no evidence of increased tracer uptake to correlate with structural findings defined on CT of the thorax dated 06/24/2023. 3. Anatomic stability may be ensured with repeat CT of the bilateral hemithorax in 6-9 months if clinically indicated. (Servando, Seminars in Thoracic and Cardiovascular surgery, 14:292, 2002). Electronic Signature José Miguel Henao D.O. Accurate Quantification of SUVs for this report are calculated using the exclusive [employer]. (U.S. Patent No. [phone] [phone] patent [phone]). Standardization and correction of the FDG SUV metric via [employer] technology allow for vendor non-specific objective quantitative examination comparison and optimization of the sensitivity and specificity of the FDG PET-CT examination. . [email or web address] Electronically Signed: José Miguel Henao DO at 23:39 EST ,
== END | disposition home or self-care (01) ==
PROVIDERS: PCP Internal Medicine; Referring Provider Nurse Practitioner Acute Care; Visit Provider Nurse Practitioner Acute Care
DX: R91.8 Other nonspecific abnormal finding of lung field (principal); J98.4 Other disorders of lung
CPT/HCPCS: 78815; A9552

== ENCOUNTER → 2023-09-05 | Outpatient (CLI) | payer MEDICARE, OTHER, SELFPAY ==
--- NOTE | 2023-09-05 11:18 | STRESSREP ---
Stress Test Report Date: 09/05/2023 Procedure: Exercise tolerance test/imaging study Indications: Chest pain Consent: Per the patient Procedure: The patient exercised on a Murtaza protocol for 5 minutes and 10 seconds achieving a peak heart rate of 126 bpm (87% predicted maximal heart rate) with a peak blood pressure 200/84 mmHg and a peak MET capacity of 7.0 METs. The baseline ECG demonstrated sinus rhythm. The peak exercise ECG demonstrated no ischemic changes. Rare PVC noted. The functional capacity was considered average. There was no complaint of chest discomfort during exercise or recovery. The examination was discontinued secondary to target heart rate being achieved and leg cramps. The patient was injected with 12.8 mCi of technetium 99m Cardiolite and subsequently rest SPECT Cardiolite nuclear imaging was obtained in the horizontal long, vertical long, and short axis views. Post-exercise, the patient was injected with 36.8 mCi of technetium 99m Cardiolite and subsequently stress SPECT Cardiolite nuclear imaging was obtained in the horizontal long, vertical long, and short axis views. A gated Cardiolite study at peak stress was obtained. Rest and stress SPECT Cardiolite nuclear imaging status post realignment, normalization, and attenuation correction, demonstrates a very small area of mildly reduced perfusion post exercise. There is end systolic thickening and brightening. The gated Cardiolite study demonstrates myocardial thickening and inward wall motion. The reported LVEF is 61%. Impression: 1. Technically adequate (percent predicted maximal heart rate greater than 85%) exercise tolerance test 2. Peak exercise ECG with no ischemic changes 3. Rare PVC noted 4. Rest and stress SPECT Cardiolite nuclear imaging demonstrate a very small area of mildly reduced perfusion of the apex post exercise that may denote mild ischemia. 5. The gated Cardiolite study reports an LVEF of 61%. 6. Hypertensive response to exercise. This note was generated with e[employer] Network[employer] software. It may contain incorrect words, spelling, and punctuation that were not noted in checking the note before signing.
== END | disposition home or self-care (01) ==
LOC: CVS 06:39
PROVIDERS: PCP Internal Medicine; Referring Provider Internal Medicine; Visit Provider Internal Medicine
DX: R07.89 Other chest pain (principal); J44.9 Chronic obstructive pulmonary disease, unspecified; R94.31 Abnormal electrocardiogram [ECG] [EKG]; Z87.891 Personal history of nicotine dependence
CPT/HCPCS: 78452; 93017; A9500

== ENCOUNTER → 2023-11-13 | Outpatient (CLI) | payer MEDICARE, OTHER, SELFPAY ==
--- NOTE | 2023-11-13 12:21 | CT_ITS ---
STUDY: CT CHEST WITH CONTRAST REASON FOR EXAM: Male, 78 years old. I25.10 - Atherosclerotic heart disease of samish coronary singh... RADIATION DOSAGE (If Supplied By Facility): CTDIvol = ( 27.76 ) mGy, DLP = ( 1358.19 ) mGycm TECHNIQUE: Transaxial imaging was performed following intravenous administration of isovue 370 100 ml. Cardiac over read examination. Individualized dose optimization techniques were used for this CT. COMPARISON: Comparison is made with prior study dated June 04, 2023. FINDINGS: CHEST Hyperinflation. Emphysematous changes. Increased markings at the lung bases slightly more prominent on the left side suggests a possible scarring. There is no demonstrated pleural abnormality. There are calcifications of the coronary arteries. Small mediastinal lymph nodes. Normal hilar regions. Normal unenhanced pulmonary arteries. There is atherosclerotic calcification of the aortic arch. There are degenerative changes of the thoracic spine. There is no demonstrated abnormality of the visualized upper abdomen. CT/Limited Chest CT Cardiac Only IMPRESSION: Coronary artery calcification. Hyperinflation and emphysematous changes. Electronically Signed: Magan Dorantes MD at 14:33 EDT ,
--- NOTE | 2023-11-13 12:21 | ECHOD_ITS ---
Reason For Study: ASHD Procedure This was a 2D Doppler, Color Flow transthoracic echocardiogram. Exam performed in department. Left Ventricle Normal size and thickness. The left ventricular ejection fraction is 65 %. Normal diastology for age. Right Ventricle Normal right ventricle. Atria The left and right atria are normal. Mitral Valve Mild focal mitral valve calcification of the anterior leaflet. Mild (1+) mitral valve insufficiency. Tricuspid Valve Mild tricuspid valve insufficiency. Normal pulmonary artery pressure. Aortic Valve Mild (1+) aortic valve insufficiency. Pulmonic Valve The pulmonic valve is not well visualized. Great Vessels Mildly dilated aortic root. Pericardium/Pleural No pericardial effusion. MMode/2D Measurements & Calculations LVIDd: 4.7 cm IVSd: 0.88 cm Ao root diam: 3.7 cm LVIDs: 2.9 cm LVPWd: 0.92 cm LA dimension: 3.4 cm RVDd: 3.7 cm FS: 37.3 % LAV(MOD-bp): 49.9 ml LVAd ap4: 23.0 cm2 SV(MOD-sp4): 35.7 ml LAV(MOD-bp) Indexed: 25.3 ml/m2 LVLd ap4: 7.6 cm LAV(MOD-sp2): 49.5 ml EDV(MOD-sp4): 57.2 ml LAV(MOD-sp4): 49.2 ml EDV(sp4-el): 59.4 ml LVAs ap4: 12.6 cm2 LVLs ap4: 6.4 cm ESV(MOD-sp4): 21.5 ml ESV(sp4-el): 20.9 ml EF(MOD-sp4): 62.4 % EF(sp4-el): 64.7 % SV(sp4-el): 38.5 ml LA A4 area: 18.3 cm2 RA A4 area: 15.7 cm2 TAPSE: 2.4 cm Time Measurements MV dec time: 0.26 sec Doppler Measurements & Calculations MV E max paco: 78.2 cm/sec Lat Peak E' Paco: 9.0 cm/sec Med Peak E' Paco: 10.2 cm/sec MV A max paco: 95.3 cm/sec E/E' lat: 8.7 E/E' med: 7.6 MV E/A: 0.82 MV V2 max: 106.1 cm/sec MV P1/2t max paco: 100.0 cm/sec Ao V2 max: 124.0 cm/sec MV max P.5 mmHg MV P1/2t: 93.5 msec Ao max P.2 mmHg MV V2 mean: 56.6 cm/sec MV dec slope: 313.2 cm/sec2 Ao V2 mean: 81.0 cm/sec MV mean P.5 mmHg Ao mean P.1 mmHg MV V2 VTI: 39.3 cm MVA(P1/2t): 2.4 cm2 Ao V2 VTI: 27.6 cm AV (velocity ratio): 0.86 AI max paco: 295.0 cm/sec LV V1 max: 107.9 cm/sec MR max paco: 498.1 cm/sec AI max P.8 mmHg LV V1 max P.7 mmHg MR max P.3 mmHg AI dec slope: 135.2 cm/sec2 LV V1 mean P.3 mmHg AI P1/2t: 638.9 msec LV V1 mean: 69.2 cm/sec LV V1 VTI: 23.7 cm PA V2 max: 117.9 cm/sec TR max paco: 269.7 cm/sec PA max PG (full): 4.1 mmHg TR max P.1 mmHg ECHO/Echo Complete Interpretation Summary The left ventricular ejection fraction is 65 %. Mild (1+) mitral valve insufficiency. Mild tricuspid valve insufficiency. Mild (1+) aortic valve insufficiency. Mildly dilated aortic root. Ordering Physician: Lynne Dixon Referring Physician: Lynne Dixon Performed By: Sanjay Del Toro RCS
--- NOTE | 2023-11-13 12:21 | ART_ITS ---
Reason For Study: LLE Claudication Procedure A bilateral lower extremity continuous wave Doppler with analog waveform analysis,segmental pressures,and ankle brachial indexes with exercise. Left Segmental Pressures Left brachial= 118mmHg. Left posterior tibial artery = 123mmHg. Left dorsalis pedis artery = 139mmHg. Left digit = 102 mmHg. The left posterior tibial artery waveforms are triphasic. The left dorsalis pedis waveforms are triphasic. Right Segmental Pressures Right brachial= 123mmHg. Right posterior tibial artery = 152mmHg. Right dorsalis pedis artery = 153mmHg. Right digit = 134 mmHg. The right posterior tibial artery waveforms are triphasic. The right dorsalis pedis waveforms are triphasic. Indices The right ankle brachial index by the posterior tibial artery is 1.24. The right ankle brachial index by the dorsalis pedis is 1.24. The right digital-brachial index is 1.09. The right ankle brachial index by the dorsalis pedis post exercise is 1.11. The left ankle brachial index by the posterior tibial artery is 1.00. The left ankle brachial index by the dorsalis pedis is 1.13. The left digital-brachial index is 0.83. The left dorsalis pedis index post exercise is 0.47. VL/Lower Ext Art Exam w/ Exercise Interpretation Summary Right MARYA 1.24, normal. TBI and Doppler/PVR waveforms of the right leg normal a t rest. Right lower extremity exhibits normal response to exercise. Left MARYA 1.13, normal. TBI and Doppler/PVR waveforms of the left leg normal at rest. Left lower extremity with abnormal response to exercise and post exercise MARYA i n the severe category. Ordering Physician: Lynne Dixon Referring Physician: Lucía Whitten M.D. Performed By: Sae Magallon RVT and Student
[2023-11-13 12:43] VITALS: BP 116/58; PULSE 70; RESP 18; TEMP 36.1; O2SAT 97; BMI 24.8
[2023-11-13] MEDS: 0.9% Saline Lock 10 ML Syringe IV (12:49)
[2023-11-13 13:06] VITALS: BP 105/61; PULSE 70
[2023-11-13] MEDS: Nitroglycerin SL (ED/IMG/CATH) 0.4 MG TABLET SL (13:06)
[2023-11-13 13:07] LABS: CREATININE FINGERSTICK < 1.0 mg/dL (0.70-1.30); EGFR FINGERSTICK > 60.0000 mL/min (>60)
[2023-11-13 13:13] VITALS: BP 105/61; PULSE 70; RESP 18; O2SAT 97
--- NOTE | 2023-11-17 07:01 | CA.SCORE ---
Calcium Scoring Date of Study:: 11/13/23 Indications Indications: ASCVD Coronary Calcium Scoring: High-resolution Computed Tomographic imaging of the chest was performed on [11/13/23 ], with particular attention paid to the coronary arteries. Images from the examination were analyzed for the presence and extent of coronary artery calcification , using coronary calcium quantification software. The patient tolerated the procedure well and there were no complications. The results of the coronary calcification analysis are provided below. Findings Coronary Artery Left Main (LM): 0 Left Anterior Descending (LAD): 0 Left Circumflex (LCX): 22.7 Right Coronary Artery (RCA): 198 Total Agatston Score: 220.7 Percentile Rankin-50% Calcium Scoring Interpretation: Different methods to categorize the overall amount of coronary plaque. Overall amount CAC SIS Visual of coronary plaque P1 Mild -100 <2 1-2 vessels with mild amount of plaque P2 Moderate 101-300 3-4 1-2 vessels with moderate amount, 3 vessels with mild amount of plaque P3 Severe 301-999 5-7 3 vessels with moderate amount, 1 vessel with severe amount of plaque P4 Extensive >1000 >8 2-3 vessels with severe amount of plaque Calcium Score: Moderate: 1-2 vessels w/moderate amt, 3 vessels w/mild amt of plaque Conclusion: Moderate 1-2 vessel disease with atherosclerotic disease
--- NOTE | 2023-11-19 10:26 | CCTA.WCONT ---
CCTA w/Cont Coronary Arteries Date of Study:: 11/13/23 Coronary artery disease Coronary Calcium Scoring: High-resolution Computed Tomographic imaging of the chest was performed on [11/13/2023], with particular attention paid to the coronary arteries. Intravenous contrast agent was administered per protocol and images reconstructed and displayed. LEFT MAIN CORONARY ARTERY: Arises from the left main coronary cusp and bifurcates to left anterior descending artery and left circumflex artery [] LEFT ANTERIOR DESCENDING CORONARY ARTERY: Medium size vessel with mild luminal irregularities noted [] LEFT CIRCUMFLEX CORONARY ARTERY: Significant motion artifact noted and cannot comment on any obvious stenosis [] RIGHT CORONARY ARTERY: Eccentric calcification noted in the proximal and mid segments with mild to moderate diffuse disease. CORONARY CALCIUM SCORE: See report Conclusion: Suboptimal CT angiogram with eccentric calcification noted in the right coronary artery with no high-grade stenosis present. []
== END | disposition home or self-care (01) ==
LOC: CT 12:17
PROVIDERS: PCP Internal Medicine; Referring Provider Internal Medicine Cardiovascular Disease; Visit Provider Internal Medicine Cardiovascular Disease
DX: Z01.812 Encounter for preprocedural laboratory examination (principal); I10 Essential (primary) hypertension; I25.10 Atherosclerotic heart disease of native coronary artery without angina pectoris; R94.31 Abnormal electrocardiogram [ECG] [EKG]; R94.39 Abnormal result of other cardiovascular function study; I73.9 Peripheral vascular disease, unspecified; E78.5 Hyperlipidemia, unspecified; R06.02 Shortness of breath
CPT/HCPCS: 75571; 75574; 76380; 93306; 93924; Q9967; A4216

== ENCOUNTER 2023-12-12 18:24 | Emergency (ER) | payer MEDICARE, OTHER, SELFPAY ==
[2023-12-12 18:26] VITALS: BP 124/76; PULSE 105; RESP 18; TEMP 36.5; O2SAT 96; BMI 25.8
--- NOTE | 2023-12-12 20:43 | ED.RN ---
im not going to wait any longer, sonia already been here 2 hours. will they call me with my covid results? attempted to encourage the pt to stay, that hopefully in the next 15 minutes i could get him a room. sonia already been here long enough.
== END 2023-12-12 20:45 | disposition left against medical advice (07) ==
LOC: ED 20:49
PROVIDERS: PCP Internal Medicine
DX: J00 Acute nasopharyngitis [common cold] (principal)
CPT/HCPCS: 87631

== ENCOUNTER 2023-12-13 13:26 | Emergency (ER) | payer MEDICARE, OTHER, SELFPAY ==
[2023-12-13 13:27] VITALS: BP 145/77; PULSE 92; RESP 22; TEMP 36.3; O2SAT 96; BMI 25.4
--- NOTE | 2023-12-13 14:32 | EKG12_ITS ---
Test Reason : SOB Blood Pressure : / mmHG Vent. Rate : 093 BPM Atrial Rate : 093 BPM P-R Int : 158 ms QRS Dur : 078 ms QT Int : 350 ms P-R-T Axes : 078 069 065 degrees QTc Int : 435 ms Normal sinus rhythm Normal ECG Confirmed by JUNIOR CANTRELL, ROGERIO ([id number]), assistant production editor DASHA VICENTE ([id number]) on 12/19/2023 6:15:09 AM Referred By: Confirmed By:BRITTANY PACHECO MD
[2023-12-13 14:38] LABS: Absolute Lymphocyte Count 1.47 X10^3/uL (0.83-4.51); Absolute Neutrophil Count 15.4 X10^3/uL (2.0-7.7); Basophil# 0.03 X10^3/uL; Basophil% 0.2 % (0-1); Eosinophil# 0.03 X10^3/uL; Eosinophils% 0.2 % (0-5); Hemoglobin 13.3 g/dL (13.0-16.5); Lymphocyte # 1.47 X10^3/ul (0.83-4.51); Lymphocyte % 7.9 % (19-41); Mean Corp Hgb Conc 33.3 g/dL (32-36); Mean Corpuscular Hgb 30.5 pg (27.0-32.0); Mean Corpuscular Volume 91.7 fL (80-94); Mean Platelet Vol. 11.1 fl (6.2-12.0); Monocyte# 1.62 X10^3/uL; Monocyte% 8.7 % (0-10); NRBC Flagged by Analyzer 0 % (0-5); Neutrophil # 15.39 X10^3/uL (2.7-7.7); Neutrophil % 82.6 % (47-70); POSITIVE DIFFERENTIAL YES; Platelet Count 187 K/mm3 (150-450); RBC Distribution Width CV 13.1 % (11.6-14.6); RBC Distribution Width SD 44.6 fl (35.1-43.9); Red Blood Count 4.36 M/mm3 (4.6-6.2); White Blood Count 18.6 K/mm3 (4.4-11.0)
[2023-12-13 14:41] LABS: Differential Indicated SCAN CRITERIA MET
--- NOTE | 2023-12-13 14:50 | RAD_ITS ---
EXAM: XR CHEST, 2 VIEWS CLINICAL INDICATION: cough, sob TECHNIQUE: Frontal and lateral views of the chest. COMPARISON: XR Chest dated 07/08/2022 FINDINGS: LUNGS AND PLEURAL SPACES: Emphysematous changes of both upper lobes of lungs again noted. No airspace opacification of the lungs. No pleural effusion or pneumothorax. HEART: Normal heart size. MEDIASTINUM: No mediastinal or hilar mass. BONES/JOINTS: No acute abnormality. RAD/Chest PA and Lateral IMPRESSION: No acute cardiopulmonary abnormality. COPD. Electronically Signed: Soham Moya MD at 15:10 EDT ,
[2023-12-13 14:53] LABS: Anion Gap 7 (5-15); BUN 22 mg/dL (7-18); BUN/Creat Ratio 21.2 RATIO (10-20); Chloride 106 mmol/L (98-107); Creatinine, Serum 1.04 mg/dL (0.70-1.30); EST Glomerular Filtration Rate 74 mL/min (>60); Est Glom Filt Rate - Afr Amer 89 mL/min (>60); Estimated Creatinine Clearance 60.43 ml/min; Glucose 99 mg/dL (74-106); Sodium Level 137 mmol/L (136-145)
[2023-12-13 15:27] VITALS: BP 106/58; PULSE 94; RESP 19; O2SAT 94
[2023-12-13 16:10] VITALS: BP 132/70; PULSE 91; RESP 17; TEMP 36.6; O2SAT 96
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
[2023-12-15 10:32] LABS: Pathologist Review Reviewed
== END 2023-12-13 16:21 | disposition home or self-care (01) ==
PROVIDERS: Emergency Provider Emergency Medicine; PCP Internal Medicine; Visit Provider Emergency Medicine
DX: R06.02 Shortness of breath (principal); J44.1 Chronic obstructive pulmonary disease with (acute) exacerbation; Z79.51 Long term (current) use of inhaled steroids; F17.200 Nicotine dependence, unspecified, uncomplicated
CPT/HCPCS: 71046; 80048; 85025; 93005; 99283; A4216

== ENCOUNTER → 2023-12-30 | Outpatient (CLI) | payer MEDICARE, OTHER, SELFPAY ==
--- NOTE | 2023-12-30 07:45 | CT_ITS ---
STUDY: CT CHEST WITHOUT CONTRAST REASON FOR EXAM: Male, 78 years old. Follow up nodule. History of COPD. History of bladder cancer. RADIATION DOSAGE (If Supplied By Facility): CTDIvol = ( 11.26 ) mGy, DLP = ( 452.98 ) mGycm TECHNIQUE: Transaxial imaging was performed without the administration of intravenous contrast material. Multiplanar coronal and sagittal images were reformatted. Individualized dose optimization techniques were used for this CT. COMPARISON: Comparison is made with prior CT scan of the thorax dated June 04, 2023. FINDINGS: CHEST Hyperinflation and diffuse emphysematous changes with the centrilobular emphysema more prominent in the upper lobes. The previously seen 1.2 cm spiculated nodule in the right upper lobe is not seen at this time. The previously seen 1 cm pleural-based nodule in the posterior aspect of the right upper lobe is not seen at this time. There is no demonstrated pleural abnormality. There are calcifications of the coronary arteries. Minimal thickening of the anterior pericardium. There are small lymph nodes within the mediastinum, which are normal in size and morphology most compatible with reactive lymph hyperplasia. Normal hilar regions. Normal unenhanced pulmonary arteries. There is atherosclerotic calcification of the aortic arch with tortuosity and elongation of the aortic arch and descending thoracic aorta. There are multi-level degenerative changes of the thoracic spine. Small hiatal hernia. CT/Chest without Contrast IMPRESSION: Hyperinflation and emphysema as described. The previously seen pulmonary nodules are not seen at this time. Electronically Signed: Magan Dorantes MD at 9:59 EDT ,
== END | disposition home or self-care (01) ==
LOC: CT 07:44
PROVIDERS: PCP Internal Medicine; Referring Provider Internal Medicine Critical Care Medicine; Visit Provider Internal Medicine Critical Care Medicine
DX: R91.8 Other nonspecific abnormal finding of lung field (principal)
CPT/HCPCS: 71250

== ENCOUNTER → 2024-05-18 | Outpatient (CLI) | payer MEDICARE, OTHER, SELFPAY | END | disposition home or self-care (01) | LOC: PAVLAB 09:16 | PROVIDERS: PCP Internal Medicine; Referring Provider Nurse Practitioner Acute Care; Visit Provider Nurse Practitioner Acute Care | DX: J44.1 Chronic obstructive pulmonary disease with (acute) exacerbation (principal) | CPT/HCPCS: 87070; 87077; 87205 ==

== ENCOUNTER 2024-06-10 00:05 | Emergency (ER) | payer MEDICARE, OTHER, SELFPAY ==
[2024-06-10 00:06] VITALS: BP 154/90; PULSE 110; RESP 18; TEMP 36.3; O2SAT 100; BMI 25.5
--- NOTE | 2024-06-10 00:30 | EKG12_ITS ---
Test Reason : CP Blood Pressure : */* mmHG Vent. Rate : 112 BPM Atrial Rate : 112 BPM P-R Int : 162 ms QRS Dur : 76 ms QT Int : 316 ms P-R-T Axes : 72 57 56 degrees QTcB Int : 431 ms Sinus tachycardia Otherwise normal ECG Confirmed by JUNIOR CANTRELL, ROGERIO ([id number]), sports editor DASHA VICENTE ([id number]) on 06/11/2024 1:03:08 PM Referred By: POLO Confirmed By: ROGERIO PACHECO MD
[2024-06-10 00:40] LABS: Absolute Lymphocyte Count 1.96 X10^3/uL (0.83-4.51); Absolute Neutrophil Count 10.9 X10^3/uL (2.0-7.7); Basophil# 0.04 X10^3/uL; Basophil% 0.3 % (0-1); Eosinophil# 0.41 X10^3/uL; Eosinophils% 2.8 % (0-5); Hematocrit 41.6 % (40-54); Hemoglobin 13.7 g/dL (13.0-16.5); Lymphocyte # 1.96 X10^3/ul (0.83-4.51); Lymphocyte % 13.6 % (19-41); Mean Corp Hgb Conc 32.9 g/dL (32-36); Mean Corpuscular Hgb 30.5 pg (27.0-32.0); Mean Corpuscular Volume 92.7 fL (80-94); Mean Platelet Vol. 10.3 fl (6.2-12.0); Monocyte# 1.06 X10^3/uL; Monocyte% 7.4 % (0-10); NRBC Flagged by Analyzer 0 % (0-5); Neutrophil # 10.88 X10^3/uL (2.7-7.7); Neutrophil % 75.5 % (47-70); Platelet Count 241 K/mm3 (150-450); RBC Distribution Width CV 12.6 % (11.6-14.6); RBC Distribution Width SD 42.9 fl (35.1-43.9); Red Blood Count 4.49 M/mm3 (4.6-6.2); White Blood Count 14.4 K/mm3 (4.4-11.0)
--- NOTE | 2024-06-10 00:40 | RAD_ITS ---
PROCEDURE: CHEST 1 VIEW (PORTABLE) REASON FOR EXAM: Chest pain. TECHNIQUE: Frontal view of the chest. COMPARISON: CT chest from 12/30/2023. Chest x-ray from 12/13/2023. FINDINGS: Cardiac size and pulmonary vasculature are within normal limits. No consolidation, pleural effusion, or pneumothorax is present. There is hyperinflation of the lungs with flattening of the hemidiaphragms compatible with COPD. There is levoscoliosis of the upper thoracic spine. Degenerative changes are present. RAD/Chest 1 View (Portable) IMPRESSION: 1. No acute cardiopulmonary process. 2. COPD. Reading Location: [facility]
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
[2024-06-10 01:05] VITALS: BP 128/68; PULSE 78; RESP 15; O2SAT 98
[2024-06-10 01:17] LABS: Anion Gap 7 (5-15); BUN 23 mg/dL (7-18); BUN/Creat Ratio 19.3 RATIO (10-20); Calcium,Total 9.1 mg/dL (8.5-10.1); Chloride 106 mmol/L (98-107); Creatinine, Serum 1.19 mg/dL (0.70-1.30); EST Glomerular Filtration Rate 63 mL/min (>60); Est Glom Filt Rate - Afr Amer 76 mL/min (>60); Estimated Creatinine Clearance 53.68 ml/min; Glucose 104 mg/dL (74-106); Potassium 4.4 mmol/L (3.5-5.1); Sodium Level 138 mmol/L (136-145); Troponin-I HS (w/2H Reflex) 4 pg/mL (3.0-78.0)
[2024-06-10 02:00] VITALS: BP 124/68; PULSE 109; RESP 20; O2SAT 97
[2024-06-10 02:37] LABS: Reflex Troponin-HS? (from REC) Y
[2024-06-10 03:00] VITALS: BP 124/67; PULSE 103; RESP 26; O2SAT 92
[2024-06-10 03:15] LABS: Troponin-I HS < 3 pg/mL (3.0-78.0)
[2024-06-10 03:24] VITALS: BP 142/82; PULSE 110; RESP 20; TEMP 36.6; O2SAT 94
== END 2024-06-10 03:29 | disposition home or self-care (01) ==
PROVIDERS: Emergency Provider Emergency Medicine; PCP Internal Medicine; Visit Provider Emergency Medicine
DX: R07.9 Chest pain, unspecified (principal); J44.9 Chronic obstructive pulmonary disease, unspecified; F17.200 Nicotine dependence, unspecified, uncomplicated; Z79.82 Long term (current) use of aspirin; Z79.52 Long term (current) use of systemic steroids; Z79.899 Other long term (current) drug therapy
CPT/HCPCS: 71045; 80048; 84484; 85025; 93005; 99284; A4216

== ENCOUNTER → 2024-07-05 | Outpatient (CLI) | payer MEDICARE, OTHER, SELFPAY ==
--- NOTE | 2024-07-05 08:15 | CT_ITS ---
PROCEDURE: CHEST WITHOUT CONTRAST REASON FOR EXAM: Follow-up for lung mass. Current smoker. TECHNIQUE: Chest CT without contrast. COMPARISON: Comparison is made with prior study dated December 30, 2023. FINDINGS: Hardware: None. Lymph nodes: Small benign-appearing mediastinal lymph nodes are seen. Heart and Vasculature: Normal heart size. No pericardial effusion. Thoracic aorta and pulmonary arteries have normal contours; noncontrast technique limits evaluation. Coronary Artery Calcifications: Present stable 1 cm pleural-based nodule in the posterior aspect of the right upper lobe as seen on axial image number 40. Central calcification is seen in keeping with a calcified granuloma. Lungs and Airways: Advanced emphysematous changes are present. This is worse in the upper lobes with evidence of bullous formation. Bullous formation. Pleura: No pleural effusion. No pneumothorax. Upper Abdomen: Visualized portions of the upper abdominal viscera are unremarkable. Bones: Degenerative changes of the thoracic spine. CT/Chest without Contrast IMPRESSION: Emphysematous changes. Stable 1 cm calcified granuloma in the posterior medial aspect of the right upp er lobe. One or more dose reduction techniques were used (e.g., Automated exposure contr ol, adjustment of the mA and/or kV according to patient size, use of iterative reconstruction technique). Reading Location: [place] [id number]
== END | disposition home or self-care (01) ==
LOC: CT 08:15
PROVIDERS: PCP Internal Medicine; Referring Provider Nurse Practitioner Acute Care; Visit Provider Nurse Practitioner Acute Care
DX: R91.8 Other nonspecific abnormal finding of lung field (principal); F17.200 Nicotine dependence, unspecified, uncomplicated
CPT/HCPCS: 71250

== ENCOUNTER → 2025-01-05 | Outpatient (CLI) | payer MEDICARE, OTHER, SELFPAY ==
[2025-01-05 12:31] VITALS: PULSE 105; PULSE 106; PULSE 108; PULSE 90; PULSE 92; O2SAT 95; O2SAT 97; O2SAT 98
--- NOTE | 2025-01-06 08:22 | PCM.PSN.6M ---
PSN 6 Minute Walk Test 6 Minute Walk Test 6 Minute Walk Test: 6 Minute Walk Test PSN:6-Minute Walk Test Start: 01/05/25 12:30 Freq: Status: Active Protocol: [id number].[id number] Document 01/05/25 12:31 JESSE (Rec: 01/05/25 12:33 JESSE [id number]) 6 Minute Walk Test Date Performed 01/05/25 Time Performed 12:15 Height 5 ft 9.5 in Weight: 172 lb Weight in Pounds 172.[address]: Kierra Delgado [employer] SPECIALIST Assistive device None used: Pre-test Oxygen Delivery Room Air Method Pulse Ox (%) 98 Pulse Rate (60-100 90 beats/min) Dyspnea Jam Scale ( 0 0-10) Exertion Jam Scale 6 (6-20) 1st minute Oxygen Delivery Room Air Method Pulse Ox (%) 98 Pulse Rate (60-100 105 H beats/min) 2nd minute Oxygen Delivery Room Air Method Pulse Ox (%) 97 Pulse Rate (60-100 105 H beats/min) 3rd minute Oxygen Delivery Room Air Method Pulse Ox (%) 97 Pulse Rate (60-100 105 H beats/min) 4th minute Oxygen Delivery Room Air Method Pulse Ox (%) 97 Pulse Rate (60-100 106 H beats/min) 5th minute Oxygen Delivery Room Air Method Pulse Ox (%) 97 Pulse Rate (60-100 108 H beats/min) 6th minute Oxygen Delivery Room Air Method Pulse Ox (%) 95 Pulse Rate (60-100 108 H beats/min) Dyspnea Jam Scale ( 2 0-10) Exertion Jam Scale 11 (6-20) Post-test Oxygen Delivery Room Air Method Pulse Ox (%) 98 Pulse Rate (60-100 92 beats/min) Full Laps Walked 17 Partial Lap, Number 21 of Tiles Walked Total Distance 1024 Walked (ft) Interpretation Interpretation: The patient ambulated 1024 feet over the course of 6 minutes beginning on room air without assistive devices. Pretesting oxygen saturation was noted to be 98% on room air. With ambulation, the sheri oxygen saturation was 95%. There was no significant exertional oxygen desaturation. Recommendations Recommendations: There is no indication for the use of supplemental oxygen at this time.
== END | disposition home or self-care (01) ==
LOC: PSN 12:11
PROVIDERS: PCP Internal Medicine; Referring Provider Nurse Practitioner Acute Care; Visit Provider Nurse Practitioner Acute Care
DX: R06.02 Shortness of breath (principal)
CPT/HCPCS: 94618

== ENCOUNTER → 2025-01-13 | Outpatient (CLI) | payer MEDICARE, OTHER, SELFPAY ==
--- NOTE | 2025-01-13 11:46 | CT_ITS ---
PROCEDURE: CHEST WITHOUT CONTRAST 01/13/2025 REASON FOR EXAM: SMOKER TECHNIQUE: Chest CT without contrast. Coronal and Sagittal reconstruction series were provided. One or more dose reduction techniques were used (e.g., Automated exposure control, adjustment of the mA and/or kV according to patient size, use of iterative reconstruction technique RADIATION DOSE SUMMARY: CTDlvol: 12.67 mGy DLP: 528.7 mGycm COMPARISON: 07/05/2024 and 12/30/2023 FINDINGS: Pulmonary parenchyma: Severe emphysema. No suspicious pulmonary nodule or mass. No focal consolidation. Airways: The central airways are patent. Pleural space: Calcified pleural plaque in the right upper lobe. No effusion or pneumothorax. Heart and pericardium: The heart is normal in size. No pericardial effusion.Coronary arterial calcifications evident. Mediastinum and melissa: Unremarkable. Thoracic vessels: Mild dilatation of the ascending aorta measuring 41 mm. The descending aorta is of normal caliber measuring 31 mm. The main pulmonary artery is intact. Atherosclerosis present. Osseous structures: Stable appearance of the spine with multilevel degenerative disc disease and Schmorl's nodules. No acute fracture. No destructive process. No change since previous exam. Mild scoliosis. Upper visualized abdomen: Unremarkable. CT/Chest without Contrast IMPRESSION: Severe bullous emphysema. No focal mass. Stable calcified pleural plaque. Dilatation of the ascending aorta measuring 41 mm. Reading Location: [facility]
== END | disposition home or self-care (01) ==
LOC: PSN 11:42
PROVIDERS: PCP Internal Medicine; Referring Provider Nurse Practitioner Acute Care; Visit Provider Nurse Practitioner Acute Care
DX: R91.8 Other nonspecific abnormal finding of lung field (principal); R06.02 Shortness of breath; F17.200 Nicotine dependence, unspecified, uncomplicated
CPT/HCPCS: 71250; 94060; 94726; 94729

== ENCOUNTER → 2025-01-20 | Outpatient (CLI) | payer MEDICARE, OTHER, SELFPAY | END | disposition home or self-care (01) | LOC: LABSPEC 08:31 | PROVIDERS: PCP Internal Medicine; Referring Provider Nurse Practitioner Acute Care; Visit Provider Nurse Practitioner Acute Care | DX: R50.9 Fever, unspecified (principal) | CPT/HCPCS: 87631 ==

== ENCOUNTER → 2025-02-10 | Outpatient (CLI) | payer MEDICARE, OTHER, SELFPAY ==
[2025-02-10 13:24] LABS: Hematocrit 39.8 % (40-54); Hemoglobin 13.4 g/dL (13.0-16.5); Immature Granulocytes Count 0.030 X10^3/uL (0.0-0.0); Mean Corp Hgb Conc 33.7 g/dL (32-36); Mean Corpuscular Volume 91.3 fL (80-94); Mean Platelet Vol. 9.7 fl (6.2-12.0); NRBC Flagged by Analyzer 0 % (0-5); Platelet Count 245 K/mm3 (150-450); RBC Distribution Width CV 12.9 % (11.6-14.6); RBC Distribution Width SD 43.6 fl (35.1-43.9); Red Blood Count 4.36 M/mm3 (4.6-6.2); White Blood Count 10.7 K/mm3 (4.4-11.0)
[2025-02-15 10:08] LABS: Bluegrass, Kentucky <0.10 kU/L (Class 0); Cat Hair/Dander, Standard <0.10 kU/L (Class 0); Dog Epithelia <0.10 kU/L (Class 0); Elm, American White <0.10 kU/L (Class 0); Oak, White <0.10 kU/L (Class 0); Plantain, English <0.10 kU/L (Class 0); Ragweed, Short/Common <0.10 kU/L (Class 0)
== END | disposition home or self-care (01) ==
LOC: PAVLAB 13:10
PROVIDERS: PCP Internal Medicine; Referring Provider Nurse Practitioner Acute Care; Visit Provider Nurse Practitioner Acute Care
DX: J30.2 Other seasonal allergic rhinitis (principal)
CPT/HCPCS: 36415; 82785; 85025; 86003

== ENCOUNTER 2025-03-21 02:29 | Emergency (ER) | payer MEDICARE, OTHER, SELFPAY ==
[2025-03-21 02:30] VITALS: BP 186/112; PULSE 90; RESP 18; TEMP 36.4; O2SAT 99; BMI 25.7
--- NOTE | 2025-03-21 02:59 | EKG12_ITS ---
Test Reason : CP Blood Pressure : */* mmHG Vent. Rate : 91 BPM Atrial Rate : 91 BPM P-R Int : 174 ms QRS Dur : 76 ms QT Int : 358 ms P-R-T Axes : 52 43 44 degrees QTcB Int : 440 ms Normal sinus rhythm Normal ECG Confirmed by ROSSY CANTRELL, ROBYN ([id number]), editor managing newspaper DASHA VICENTE ([id number]) on 03/21/2025 1:12:01 PM Referred By: Confirmed By: ROBYN BLAIR MD
--- NOTE | 2025-03-21 03:05 | RAD_ITS ---
PROCEDURE: CHEST 1 VIEW (PORTABLE) 03/21/2025 REASON FOR EXAM: CHEST PAIN TECHNIQUE: Frontal view of the chest. COMPARISON: CT scan of the chest on 01/13/2025. FINDINGS: The lungs are emphysematous. There is no demonstrated acute parenchymal abnormality. There is no demonstrated pleural abnormality. Normal heart and pericardium. Normal mediastinum and melissa. Normal visualized pulmonary arteries. Normal visualized aortic arch and descending thoracic aorta. Normal visualized thoracic spine. Normal visualized ribs, clavicles, and shoulders. There is no demonstrated abnormality of the visualized soft tissue structures of the upper abdomen. RAD/Chest 1 View (Portable) IMPRESSION: Unchanged emphysema. No radiographic evidence of an acute abnormality. Reading [facility]
[2025-03-21 03:09] VITALS: BP 174/85; PULSE 88; RESP 18; O2SAT 98
[2025-03-21 03:10] LABS: Hematocrit 42.8 % (40-54); Hemoglobin 14.2 g/dL (13.0-16.5); Immature Granulocytes Count 0.040 X10^3/uL (0.0-0.0); Mean Corp Hgb Conc 33.2 g/dL (32-36); Mean Corpuscular Volume 90.7 fL (80-94); Mean Platelet Vol. 10.2 fl (6.2-12.0); NRBC Flagged by Analyzer 0 % (0-5); Platelet Count 220 K/mm3 (150-450); RBC Distribution Width CV 13.0 % (11.6-14.6); RBC Distribution Width SD 43.1 fl (35.1-43.9); Red Blood Count 4.72 M/mm3 (4.6-6.2); White Blood Count 10.4 K/mm3 (4.4-11.0)
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
[2025-03-21 03:26] VITALS: BP 149/86
--- OUTSIDE RECORDS SUMMARY | 2025-03-21 03:39 | XMS RPT_ITS | CCD ---
Author Organization [facility] Care Team Providers Care Program Rep Name Role Phone Dr. Regis Souza Primary Care Provider Dr. Regis Souza Referring Provider Nurse, Surgery Attending Provider Unavailable Sandy BEEF CATTLE FARM WORKER, BEEF CATTLE FARM WORKER-C Kierra Referring Provider [phone] Sandy BEEF CATTLE FARM WORKER, BEEF CATTLE FARM WORKER-C Kierra Other Provider Dr. Murtaza Tolentino Attending Provider Dr. Naveed Guzman Attending Provider Dr. Regis Souza Referring Provider Dr. Murtaza Tolentino Attending Provider Care Physician, No Primary Primary Care Provider Unavailable Care Physician, No Primary Referring Provider Un available Sandy DISLA, BEEF CATTLE FARM WORKER-C Kierra Attending Provider Dr. Lucía Whitten Primary Care Provider Dr. Lucía Whitten Attending Provider [phone] Cristina Lyn Attending Provider Unavailable Dr. Lucía Whitten Referring Provider [phone] Emeterio Staley Attending Provider [phone] Dr. Emeterio Staley Other Provider Dr. Lucía Whitten Primary Care Provider Dr. Lucía Whitten Primary Care Provider Sandy DISLA, NIGHAT-C Kierra Attending Provider Dr. Lucía Whitten MD Primary Care Provider [phone] Dr. Lucía Whitten MD Referring Provider Zack CANTRELL, Dr. Batista Attending Provider Delgado BEEF CATTLE FARM WORKER-C, Kierra Attending Provider Delgado BEEF CATTLE FARM WORKER-C, Kierra Referring Provider Avery CANTRELL, Dr. Bryant Attending Provider [phone] Avery CANTRELL, Dr. Bryant Emergency Provider Fish CANTRELL, Dr. Castrejon Primary Care Provider Delgado BEEF CATTLE FARM WORKER-C, Kierra Attending Provider Delgado BEEF CATTLE FARM WORKER-C, Kierra Referring Provider Fish CANTRELL, Dr. Castrejon Referring Provider Zack CANTRELL, Dr. Batista Attending Provider Fish CANTRELL, Dr. Castrejon Attending Provider Fish CANTRELL, Dr. Castrejon Primary Care Physician Fish CANTRELL, Dr. Castrejon Referring Provider Zack CANTRELL, Dr. Batista Attending Physician Fish CANTRELL, Dr. Castrejon Attending Physician Delgado BEEF CATTLE FARM WORKER-C, Kierra Attending Physician Delgado BEEF CATTLE FARM WORKER-C, Kierra Referring Provider Delgado BEEF CATTLE FARM WORKER-C, Kierra Nurse Practitioner Dr. Naveed Guzman DO Attending Physician [phone] Fish, Lucía Primary Care Unavailable Delgado BEEF CATTLE FARM WORKER, Kierra Consulting Unavailable Delgado BEEF CATTLE FARM WORKER, Kierra Referring Unavailable Naveed Guzman Attending Unavailable Fish, Lucía Primary Care Unavailable Fish, Lucía Attending Unavailable Fish, Lucía Primary Care Unavailable Fish, Lucía Referring Unavailable Lynne Dixon Attending Unavailable Fish, Lucía Primary Care Unavailable Fish, Lucía Referring Unavailable Delgado BEEF CATTLE FARM WORKER, Kierra Attending Unavailable Fish, Ulcía Primary Care Unavailable Delgado BEEF CATTLE FARM WORKER, Kierra Attending Unavailable Delgado BEEF CATTLE FARM WORKER, Kierra Referring Unavailable Fish, Lucía Primary Care Unavailable Delgado BEEF CATTLE FARM WORKER, Kierra Attending Unavailable Delgado BEEF CATTLE FARM WORKER, Kierra Referring Unavailable Fish, Lucía Primary Care Unavailable Manny Varela Attending [facility] Unavailable Delgado BEEF CATTLE FARM WORKER, Kierra Attending Unavailable Delgado BEEF CATTLE FARM WORKER, Kierra Referring Unavailable FishLucía yousif Primary Care Unavailable Delgado BEEF CATTLE FARM WORKER, Kierra Attending Unavailable Delgado BEEF CATTLE FARM WORKER, Kierra Referring Unavailable FishLucía yousif Primary Care Unavailable Delgado BEEF CATTLE FARM WORKER, Kierra Referring Unavailable Delgado BEEF CATTLE FARM WORKER, Kierra Attending Unavailable Fish, Lucía Primary Care Unavailable Delgado BEEF CATTLE FARM WORKER, Kierra Referring Unavailable Delgado BEEF CATTLE FARM WORKER, Kierra Attending Unavailable Lucía Whitten Referring Unavailable Delgado BEEF CATTLE FARM WORKER, Kierra Attending Unavailable Fish, Lucía Primary Care Unavailable Fish, Lucía Referring Unavailable Fish, Lucía Primary Care Unavailable Lynne Dixon Attending Unavailable Fish, Lucía Primary Care Unavailable Lucía Whitten Referring Unavailable Sandy BEEF CATTLE FARM WORKER, Kierra Attending Unavailable Fish CANTRELL, Dr. Castrejon Primary Care Physician Dr. Lucía Whitten MD Referring Provider Medications Current Medications Medication Drug Class(es) Dates Sig (Normalized) Sig (Original) albuterol 0.833 mg/ml / ipratropium bromide 0.167 mg/ml inhalation solution (20 sources) Anticholinergic, beta2-Adrenergic Agonist Start: 01-06-2024 End: 01-06-2024 take 1 mL by inhalation every four hours as needed for wheezing Start: 07-09-2022 End: 07-09-2022 take 1 mL by inhalation every four hours as needed for wheezing Ipratropium-Albuterol 0.5 mg-3 mg(2.5 mg base)/3 mL solution for nebulization Discontinued 3 mL INHALATION Q4H as needed for shortness of breath or wheezing 180 0 July 09, 2022 12:12am July 09, 2022 11:18am until breathing returns to target peak flow/parameters Start: 07-09-2022 End: 07-09-2022 take 1 mL by inhalation every four hours Ipratropium-Albuterol Discontinued 3 ML INHALATION Q4H 180 July 08, 2022 11:12pm July 09, 2022 10:18am until breathing returns to target peak flow/parameters aspirin 81 mg delayed release oral tablet (7 sources) Platelet Aggregation Inhibitor, Nonsteroidal Anti-inflammatory Drug Start: 10-13-2023 take 1 tablet by mouth once daily bisacodyl 5 mg delayed release oral tablet (5 sources) Stimulant Laxative Start: 10-04-2024 take 1 tablet by mouth at bedtime as needed 2 ml dupilumab 150 mg/ml auto-injector (1 source) Interleukin-4 Receptor alpha Antagonist Start: 02-10-2025 Fluticasone-Umeclidi n-Vilanter (20 sources) Anticholinergic, Corticosteroid, beta2-Adrenergic Agonist Start: 01-06-2024 Start: 01-06-2024 Fluticasone-Um eclidin-Vilanter (Trelegy Ellipta) 100-62.5-25 mcg blister with device Active 1 NMA INHALATION DAILY 3 January 06, 2024 11:58am Start: 06-12-2023 End: 01-06-2024 Tqdfbewbtqg-Ylftnzvsr-Szyqbz er (Trelegy Ellipta) 100-62.5-25 mcg blister with device Discontinued 1 NMA INHALATION DAILY 60 June 12, 2023 12:24pm January 06, 2024 11:59am Start: 06-12-2023 End: 01-06-2024 Icjuqjsxehz-Nrnuhesae-Mfxgsz er (Trelegy Ellipta) 100-62.5-25 mcg blister with device Discontinued 1 NMA INHALATION DAILY 60 June 12, 2023 12:24pm January 06, 2024 11:59am Start: 06-12-2023 Fluticasone-Um eclidin-Vilanter (Trelegy Ellipta) 100-62.5-25 mcg blister with device Active 1 INH INHALATION DAILY 60 June 12, 2023 11:24am Start: 12-31-2022 End: 06-12-2023 Lrrjibdpgfu-Zckoccdum-Fdtcur er (Trelegy Ellipta) 100-62.5-25 mcg blister with device Discontinued 1 NMA INHALATION DAILY 60 December 31, 2022 10:35am June 12, 2023 12:24pm Start: 12-31-2022 End: 06-12-2023 Cpnahoivpwi-Fiuokttmo-Wkysdt er (Trelegy Ellipta) 100-62.5-25 mcg blister with device Discontinued 1 NMA INHALATION DAILY December 31, 2022 10:35am June 12, 2023 12:24pm Start: 12-31-2022 End: 06-12-2023 Tjxdextfbfx-Qedibvgtv-Iwswyc er (Trelegy Ellipta) 100-62.5-25 mcg blister with device Discontinued 1 INH INHALATION DAILY 60 December 31, 2022 9:35am June 12, 2023 11:24am Start: 12-31-2022 Fluticasone-Um eclidin-Vilanter (Trelegy Ellipta) 100-62.5-25 mcg blister with device Active 1 INH INHALATION DAILY 60 December 31, 2022 9:35am Start: 08-09-2022 End: 12-31-2022 Avupdvphhob-Unhcqsreu-Hzslvu er (Trelegy Ellipta) 100-62.5-25 mcg blister with device Discontinued 1 NMA INHALATION DAILY 60 August 09, 2022 1:45pm December 31, 2022 10:35am Start: 08-09-2022 End: 12-31-2022 Izczyjmuyzx-Rdyjyozak-Ofeykk er (Trelegy Ellipta) 100-62.5-25 mcg blister with device Discontinued 1 NMA INHALATION DAILY 60 August 09, 2022 1:45pm December 31, 2022 10:35am Start: 08-09-2022 End: 12-31-2022 Ypoohnvqbab-Tvmocgbsc-Rtzcjm er (Trelegy Ellipta) 100-62.5-25 mcg blister with device Discontinued 1 INH INHALATION DAILY 60 August 09, 2022 12:45pm December 31, 2022 9:35am Start: 06-27-2022 End: 08-09-2022 Wkbxtdbslyj-Deorgitme-Rrpnck er (Trelegy Ellipta) 100-62.5-25 mcg blister with device Discontinued 1 NMA INHALATION DAILY 60 June 27, 2022 11:34am August 09, 2022 1:45pm Start: 06-27-2022 End: 08-09-2022 Symqpfjafes-Tsemmomkp-Gvjsnp er (Trelegy Ellipta) 100-62.5-25 mcg blister with device Discontinued 1 NMA INHALATION DAILY June 27, 2022 11:34am August 09, 2022 1:45pm Start: 06-27-2022 End: 08-09-2022 Gdxcatejaau-Hwffsbmga-Tvwqhb er (Trelegy Ellipta) 100-62.5-25 mcg blister with device Discontinued 1 INH INHALATION DAILY 60 June 27, 2022 10:34am August 09, 2022 12:45pm Start: 06-27-2022 Fluticasone-Um eclidin-Vilanter (Trelegy Ellipta) 100-62.5-25 mcg blister with device Active 1 INH INHALATION DAILY 60 June 27, 2022 11:34am Start: 09-10-2021 End: 06-27-2022 Omtgbqfqzon-Jpmxfwmue-Jipvnl er (Trelegy Ellipta) 100-62.5-25 mcg blister with device Discontinued 1 NMA INHALATION DAILY 60 September 10, 2021 9:16am June 27, 2022 11:35am Start: 09-10-2021 End: 06-27-2022 Zbhyttsnwcw-Fhznjohqw-Fbdgbx er (Trelegy Ellipta) 100-62.5-25 mcg blister with device Discontinued 1 NMA INHALATION DAILY 60 September 10, 2021 9:16am June 27, 2022 11:35am Start: 09-10-2021 End: 06-27-2022 Yknrqmvqllq-Gkvinemuo-Xkcuuq er (Trelegy Ellipta) 100-62.5-25 mcg blister with device Discontinued 1 INH INHALATION DAILY September 10, 2021 8:16am June 27, 2022 10:35am Start: 09-10-2021 End: 06-27-2022 Oizurkwzuiw-Axhdkensk-Fhdbem er (Trelegy Ellipta) 100-62.5-25 mcg blister with device Discontinued 1 INH INHALATION DAILY September 10, 2021 9:16am June 27, 2022 11:35am Start: 09-10-2021 Fluticasone-Um eclidin-Vilanter (Trelegy Ellipta) 100-62.5-25 mcg blister with device Active 1 INH INHALATION DAILY September 10, 2021 8:16am Start: 09-10-2021 Fluticasone-Um eclidin-Vilanter (Trelegy Ellipta) 100-62.5-25 mcg blister with device Active 1 INH INHALATION DAILY 60 September 10, 2021 9:16am Start: 04-03-2021 End: 09-10-2021 Kzbcepyfewj-Kbnycakfa-Dvnymm er (Trelegy Ellipta) 100-62.5-25 mcg blister with device Discontinued 1 NMA INHALATION DAILY 60 April 03, 2021 9:12am September 10, 2021 9:16am Start: 04-03-2021 End: 09-10-2021 Xfxjydamwjn-Ctkolrkjw-Cqbesv er (Trelegy Ellipta) 100-62.5-25 mcg blister with device Discontinued 1 NMA INHALATION DAILY 60 April 03, 2021 9:12am September 10, 2021 9:16am Start: 04-03-2021 End: 09-10-2021 Tunodeeejul-Vlqcefkzs-Hitrbs er (Trelegy Ellipta) 100-62.5-25 mcg blister with device Discontinued 1 INH INHALATION DAILY 60 April 03, 2021 8:12am September 10, 2021 8:16am Start: 04-03-2021 End: 09-10-2021 Yempzuymvmd-Mjbthbglc-Urgfms er (Trelegy Ellipta) 100-62.5-25 mcg blister with device Discontinued 1 INH INHALATION DAILY 60 April 03, 2021 9:12am September 10, 2021 9:16am Start: 10-19-2020 End: 04-03-2021 Arfdsfajsyv-Lmpbrkqjv-Ytbrrt er (Trelegy Ellipta) 100-62.5-25 mcg blister with device Discontinued 1 NMA INHALATION DAILY 60 October 19, 2020 12:44pm April 03, 2021 9:13am Start: 10-19-2020 End: 04-03-2021 Yhryekbohyg-Lozrrgxme-Yjkqio er (Trelegy Ellipta) 100-62.5-25 mcg blister with device Discontinued 1 NMA INHALATION DAILY October 19, 2020 12:44pm April 03, 2021 9:13am Start: 10-19-2020 End: 04-03-2021 Dklmafbggjd-Dhsjidhag-Mapzdy er (Trelegy Ellipta) 100-62.5-25 mcg blister with device Discontinued 1 INH INHALATION DAILY 60 October 19, 2020 11:44am April 03, 2021 8:13am Start: 10-19-2020 End: 04-03-2021 Daydzifevnc-Aficntjfb-Tolrnt er (Trelegy Ellipta) 100-62.5-25 mcg blister with device Discontinued 1 INH INHALATION DAILY 60 October 19, 2020 12:44pm April 03, 2021 9:13am Start: 02-14-2020 End: 10-19-2020 Ejsutzxotdx-Ioeiafpdi-Yljoom er (Trelegy Ellipta) 100-62.5-25 mcg blister with device Discontinued 1 NMA INHALATION DAILY 60 3 February 14, 2020 3:28pm October 19, 2020 12:44pm Start: 02-14-2020 End: 10-19-2020 Nwxekyanbqk-Aheumcylp-Aiguuc er (Trelegy Ellipta) 100-62.5-25 mcg blister with device Discontinued 1 NMA INHALATION DAILY 60 February 14, 2020 3:28pm October 19, 2020 12:44pm Start: 02-14-2020 End: 10-19-2020 Vnsefiocpjm-Tgowhblwi-Ariinz er (Trelegy Ellipta) 100-62.5-25 mcg blister with device Discontinued 1 INH INHALATION DAILY 60 February 14, 2020 2:28pm October 19, 2020 11:44am Start: 02-14-2020 End: 10-19-2020 Qfhvwruazay-Fhepfuwak-Kxgimp er (Trelegy Ellipta) 100-62.5-25 mcg blister with device Discontinued 1 INH INHALATION DAILY 60 February 14, 2020 3:28pm October 19, 2020 12:44pm Start: 02-02-2020 End: 02-14-2020 Pjrxljkffxw-Amqkrnowa-Sdjmak er (Trelegy Ellipta) 100-62.5-25 mcg blister with device Discontinued 1 NMA INHALATION DAILY 60 February 02, 2020 9:21am February 14, 2020 3:28pm Start: 02-02-2020 End: 02-14-2020 Azurvustxmv-Szhyhlvgg-Ghxrcv er (Trelegy Ellipta) 100-62.5-25 mcg blister with device Discontinued 1 NMA INHALATION DAILY 60 February 02, 2020 9:21am February 14, 2020 3:28pm Start: 02-02-2020 End: 02-14-2020 Tjbwztvvsnk-Roiyvdmra-Kbpzyd er (Trelegy Ellipta) 100-62.5-25 mcg blister with device Discontinued 1 INH INHALATION DAILY 60 February 02, 2020 8:21am February 14, 2020 2:28pm Start: 02-02-2020 End: 02-14-2020 Ttryejbdnbg-Wkijmlqxb-Xujagy er (Trelegy Ellipta) 100-62.5-25 mcg blister with device Discontinued 1 INH INHALATION DAILY 60 February 02, 2020 9:21am February 14, 2020 3:28pm Start: 11-29-2019 End: 02-02-2020 Vgyzshnhvtc-Uagvllsle-Ctkhmn er (Trelegy Ellipta) 100-62.5-25 mcg blister with device Discontinued 1 INH INHALATION DAILY November 29, 2019 7:59am February 02, 2020 9:22am Start: 11-29-2019 End: 02-02-2020 Bsqdtozlzhf-Wdvjyqyrp-Oqvhka er (Trelegy Ellipta) 100-62.5-25 mcg blister with device Discontinued 1 NMA INHALATION DAILY November 29, 2019 12:00am February 02, 2020 9:22am Start: 11-29-2019 End: 02-02-2020 Ilvgaapihby-Bfukpzcha-Rbyzzp er (Trelegy Ellipta) 100-62.5-25 mcg blister with device Discontinued 1 INH INHALATION DAILY November 28, 2019 11:00pm February 02, 2020 8:22am Start: 11-29-2019 End: 02-02-2020 Sauhwtiuxph-Sucvwjsyu-Tqfhxl er (Trelegy Ellipta) 100-62.5-25 mcg blister with device Discontinued 1 INH INHALATION DAILY November 29, 2019 12:00am February 02, 2020 9:22am Start: 02-08-2019 End: 05-31-2019 Ojgtqjuamup-Tcpnuqebo-Unrnki er (Trelegy Ellipta) 100-62.5-25 mcg blister with device Discontinued 1 INH INHALATION daily 60 February 08, 2019 8:04am May 31, 2019 12:17pm administer at approximately the same time(s) each day Start: 02-08-2019 End: 05-31-2019 Yhbwphbskcc-Xhkcmlakt-Fcezqv er (Trelegy Ellipta) 100-62.5-25 mcg blister with device Discontinued 1 NMA INHALATION daily 60 3 February 08, 2019 12:00am May 31, 2019 12:17pm Chronic obstructive pulmonary disease, unspecified administer at approximately the same time(s) each day Start: 02-08-2019 End: 05-31-2019 Rtosvqxrpxm-Tlxkpjoni-Cspdrz er (Trelegy Ellipta) 100-62.5-25 mcg blister with device Discontinued 1 NMA INHALATION daily 60 February 08, 2019 12:00am May 31, 2019 12:17pm administer at approximately the same time(s) each day Start: 02-08-2019 End: 05-31-2019 Jfaigrpyvvt-Yuteahmzm-Njfait er (Trelegy Ellipta) 100-62.5-25 mcg blister with device Discontinued 1 INH INHALATION daily 60 February 07, 2019 11:00pm May 31, 2019 11:17am administer at approximately the same time(s) each day Start: 02-08-2019 End: 05-31-2019 Wpzokelivrr-Ebhkioxpd-Mrkpxg er (Trelegy Ellipta) 100-62.5-25 mcg blister with device Discontinued 1 INH INHALATION daily 60 February 08, 2019 12:00am May 31, 2019 12:17pm administer at approximately the same time(s) each day Completed/Discontinued Medications Medication Drug Class(es) Dates Sig (Normalized) Sig (Original) albuterol 0.83 mg/ml inhalation solution (20 sources) beta2-Adrenergic Agonist Start: 07-11-2022 End: 08-21-2022 take 2.5 mg by inhalation every four hours Albuterol Sulfate Discontinued 2.5 MG INHALATION Q4H 75 July 11, 2022 11:28am August 21, 2022 7:23am Start: 07-08-2022 End: 07-11-2022 take 2.5 mg by inhalation every four hours Albuterol Sulfate Discontinued 2.5 MG INHALATION Q4H 180 July 08, 2022 8:43am July 11, 2022 11:29am Start: 07-08-2022 take 2.5 mg by inhal ation every four hours Albuterol Sulfate Active 2.5 MG INHALATION Q4H 180 July 08, 2022 9:43am Start: 07-10-2021 End: 08-21-2022 take 2.5 mg by inhalation every four hours as needed Albuterol Sulfate 2.5 mg /3 mL (0.083 %) solution for nebulization Discontinued 2.5 mg INHALATION Q4H as needed for SOB 75 July 11, 2022 12:28pm August 21, 2022 8:23am Stage 3 severe COPD by GOLD classification Chronic obstructive pulmonary disease, unspecified Start: 09-09-2017 End: 09-09-2017 take 2.5 mg by inhalation every four hours as needed Albuterol Sulfate 2.5 mg /3 mL (0.083 %) solution for nebulization Discontinued 2.5 mg INHALATION Q4H as needed September 09, 2017 12:00am September 09, 2017 10:16am Start: 07-09-2017 End: 08-05-2017 take 2.5 mg by inhalation every four hours as needed for wheezing Albuterol Sulfate 2.5 MG/3 ML solution for nebulization Discontinued 2.5 mg INHALATION EVERY 4 HOURS NEEDED as needed for Sob &/Or Wheezing July 09, 2017 12:00am August 05, 2017 10:49am Albuterol Sulfate 2.5 mg /3 mL (0.083 %) solution for nebulization (6 sources) Start: 07-11-2022 End: 08-21-2022 take 2.5 mg by inhalation every four hours as needed Albuterol Sulfate 2.5 mg /3 mL (0.083 %) solution for nebulization Discontinued 2.5 mg INHALATION Q4H as needed for SOB 75 July 11, 2022 12:28pm August 21, 2022 8:23am Start: 07-08-2022 End: 07-11-2022 take 2.5 mg by inhalation every four hours as needed Albuterol Sulfate 2.5 mg /3 mL (0.083 %) solution for nebulization Discontinued 2.5 mg INHALATION Q4H as needed for SOB 180 July 08, 2022 9:43am July 11, 2022 12:29pm amoxicillin 875 mg / clavulanate 125 mg oral tablet (20 sources) Penicillin-class Antibacterial Start: 05-20-2024 End: 08-05-2024 Amoxicillin-Pot Clavulanate 875-125 mg tablet Discontinued 1 {tbl} PO TWICE A DAY 20 May 20, 2024 1:00am August 05, 2024 3:14pm Start: 05-02-2023 End: 06-12-2023 Amoxicillin-Pot Clavulanate 875-125 mg tablet Discontinued 1 {tbl} PO TWICE A DAY 10 May 02, 2023 1:00am June 12, 2023 12:10pm Start: 05-02-2023 End: 06-12-2023 take 1 tablet by mouth twice daily Amoxicillin-Pot Clavulanate Discontinued 1 TABLET PO TWICE A DAY May 02, 2023 12:00am June 12, 2023 11:10am Start: 05-03-2021 End: 05-04-2021 Amoxicillin-Pot Clavulanate (Augmentin) 875-125 mg tablet Discontinued 1 {tbl} PO TWICE A DAY 20 May 03, 2021 1:00am May 04, 2021 11:22am azithromycin 250 mg oral tablet (20 sources) Macrolide Antimicrobial Start: 01-20-2025 End: 01-25-2025 take 2-5 tablets by mouth once daily Azithromycin 250 mg tablet Discontinued 0 PO .COMPLEX 6 5 0 January 20, 2025 12:00am January 24, 2025 12:00am January 25, 2025 12:09am take 500 mg today (day 1), then 250 mg for 4 days (days 2-5) PO Start: 12-13-2023 End: 12-18-2023 take 1 tablet by mouth once daily Azithromycin 250 mg tablet Discontinued 250 mg PO DAILY 4 0 December 13, 2023 12:00am December 18, 2023 11:25am Start: 03-18-2023 End: 03-31-2023 take 2-5 tablets by mouth once daily Azithromycin 250 mg tablet Discontinued 0 PO .COMPLEX 6 0 March 18, 2023 1:00am March 31, 2023 11:40am take 500 mg today (day 1), then 250 mg for 4 days (days 2-5) PO Start: 09-09-2017 End: 10-30-2017 take 1 tablet by mouth once daily Azithromycin 250 mg tablet Discontinued 250 mg PO daily 6 September 09, 2017 12:00am October 30, 2017 10:35am 120 actuat budesonide 0.16 mg/actuat / formoterol fumarate 0.0045 mg/actuat metered dose inhaler (15 sources) Corticosteroid, beta2-Adrenergic Agonist Start: 07-21-2017 End: 08-05-2017 Budesonide-Formoterol 1 INHALER inhaler Discontinued 2 NMA INHALATION TWICE A DAY 1 July 21, 2017 12:00am August 05, 2017 10:49am Start: 07-21-2017 End: 08-05-2017 take 1 puff(s) by inhalation twice daily Budesonide-Formoterol Discontinued 2 PUFF INHALATION TWICE A DAY 1 July 20, 2017 11:00pm August 05, 2017 9:49am doxycycline hyclate 100 mg oral tablet (19 sources) Tetracycline-class Drug Start: 12-18-2023 End: 01-06-2024 take 1 tablet by mouth twice daily Doxycycline Hyclate 100 mg tablet Discontinued 100 mg PO TWICE A DAY 20 December 18, 2023 12:00am January 06, 2024 11:38am Start: 07-09-2022 End: 08-21-2022 take 1 capsule by mouth twice daily Doxycycline Monohydrate 100 mg capsule Discontinued 100 mg PO TWICE A DAY 14 July 09, 2022 12:00am August 21, 2022 8:23am 120 actuat formoterol fumarate 0.0048 mg/actuat / glycopyrrolate 0.009 mg/actuat metered dose inhaler (15 sources) beta2-Adrenergic Agonist Start: 09-09-2017 End: 10-30-2017 Glycopyrrolate-Formoterol (Bevespi Aerosphere) 9-4.8 mcg HFA aerosol inhaler Discontinued 2 NMA INHALATION every day in the morning and in the evening 1 September 09, 2017 12:00am October 30, 2017 10:36am Start: 09-09-2017 End: 10-30-2017 Glycopyrrolate-Formoterol (B evespi Aerosphere) 9-4.8 mcg HFA aerosol inhaler Discontinued 2 PUFF INHALATION every day in the morning and in the evening September 08, 2017 11:00pm October 30, 2017 9:36am 12 hr guaiFENesin 1200 mg extended release oral tablet (20 sources) Start: 09-09-2017 End: 10-30-2017 take 1 tablet by mouth every twelve hours, then take 1 tablet by mouth every twelve hours Guaifenesin (Mucinex) 1,200 mg tablet extended release 12hr Discontinued 1200 mg PO Q12H September 09, 2017 12:00am October 30, 2017 10:36am Start: 07-21-2017 End: 08-05-2017 take 1 tablet by mouth twice daily Guaifenesin 1,200 MG tablet Discontinued 1200 mg PO TWICE A DAY 14 July 21, 2017 12:00am August 05, 2017 10:49am ipratropium bromide 0.2 mg/ml inhalation solution (11 sources) Anticholinergic Start: 07-09-2022 End: 01-06-2024 take 1 mL by inhalation every six hours as needed for wheezing Ipratropium [place] 0.02 % solution Discontinued 2.5 mL INHALATION EVERY 6 HOURS as needed for shortness of breath or wheezing 180 July 09, 2022 12:00am January 06, 2024 11:57am levalbuterol 0.21 mg/ml inhalation solution (20 sources) beta2-Adrenergic Agonist Start: 09-09-2017 End: 05-04-2021 take 0.63 mg by inhalation every four hours as needed for wheezing Levalbuterol Hcl 0.63 mg/3 mL solution for nebulization Discontinued 0.63 mg INHALATION Q4H as needed for shortness of breath or wheezing 90 3 February 17, 2019 1:54pm May 04, 2021 11:22am Chronic obstructive pulmonary disease, unspecified Diagnosis Code J44.9- Chronic obstructive pulmonary disease, unspecified Start: 07-22-2017 End: 08-05-2017 take 0.63 mg by inhalation every four hours as needed for wheezing Levalbuterol Hcl 0.63 MG/3 ML solution for nebulization Discontinued 0.63 mg INHALATION Q4H as needed for Sob &/Or Wheezing 30 0 July 22, 2017 11:24am August 05, 2017 10:49am Chronic obstructive pulmonary disease Chronic obstructive pulmonary disease, unspecified metoprolol tartrate 25 mg oral tablet (7 sources) beta-Adrenergic Allison Start: 09-08-2023 End: 03-30-2024 take 1 tablet by mouth twice daily Metoprolol Tartrate 25 mg tablet Discontinued 25 mg PO TWICE A DAY 60 September 08, 2023 12:00am March 30, 2024 10:35am pravastatin sodium 40 mg oral tablet (7 sources) HMG-CoA Reductase Inhibitor Start: 10-13-2023 End: 02-10-2025 take 1 tablet by mouth at bedtime Pravastatin 40 mg tablet Discontinued 40 mg PO AT BEDTIME 90 October 13, 2023 12:00am February 10, 2025 10:24am predniSONE 10 mg oral tablet (20 sources) Start: 01-20-2025 End: 02-01-2025 Prednisone 10 mg tablet Discontinued 10 mg PO daily 30 12 January 20, 2025 12:00am January 31, 2025 12:00am February 01, 2025 12:10am take 4 tabs for three days, then 3 tabs for three days, then 2 tabs for three days, then 1 tab for 3 days Start: 05-18-2024 End: 08-05-2024 Prednisone 10 mg tablet Disc ontinued 10 mg PO daily 30 May 18, 2024 1:00am August 05, 2024 3:14pm take 4 tabs for three days, then 3 tabs for three days, then 2 tabs for three days, then 1 tab for 3 days Start: 12-18-2023 End: 01-06-2024 Prednisone 10 mg tablet Disc ontinued 10 mg PO daily 30 December 18, 2023 12:00am January 06, 2024 11:39am take 4 tabs for three days, then 3 tabs for three days, then 2 tabs for three days, then 1 tab for 3 days Start: 12-13-2023 End: 12-18-2023 take 2 tablets by mouth once daily Prednisone 20 mg tablet Discontinued 40 mg PO DAILY 8 December 13, 2023 12:00am December 18, 2023 11:25am Start: 05-02-2023 End: 06-12-2023 Prednisone 10 mg tablet Disc ontinued 10 mg PO daily 30 May 02, 2023 1:00am June 12, 2023 12:10pm take 4 tabs for three days, then 3 tabs for three days, then 2 tabs for three days, then 1 tab for 3 days Start: 03-18-2023 End: 03-31-2023 Prednisone 10 mg tablet Disc ontinued 10 mg PO daily 30 0 March 18, 2023 1:00am March 31, 2023 11:41am take 4 tabs for three days, then 3 tabs for three days, then 2 tabs for three days, then 1 tab for 3 days Start: 07-09-2022 End: 08-21-2022 take 2 tablets by mouth once daily Prednisone 20 mg tablet Discontinued 40 mg PO DAILY 10 July 09, 2022 12:00am August 21, 2022 8:23am Start: 07-09-2022 End: 08-21-2022 take 40 mg by mouth once daily Prednisone Discontinued 40 MG PO DAILY 10 July 08, 2022 11:00pm August 21, 2022 7:23am Start: 05-02-2021 End: 07-10-2021 Prednisone 10 mg tablet Disc ontinued 10 mg PO daily 30 May 02, 2021 10:54am July 10, 2021 11:09am take 4 tabs for three days, then 3 tabs for three days, then 2 tabs for three days, then 1 tab for 3 days Start: 09-09-2017 End: 10-30-2017 Prednisone 10 mg tablet Disc ontinued 10 mg PO daily 30 0 September 09, 2017 12:00am October 30, 2017 10:31am take 4 tabs for three days, then 3 tabs for three days, then 2 tabs for three days, then 1 tab for 3 days Start: 07-11-2017 End: 08-05-2017 Prednisone 10 MG tablet Disc ontinued 0 mg PO DAILY Taper: Frequency: DAILY@0800 Days: 3 Hours: 0 Dose: 40 Frequency: DAILY@0800 Days: 3 Hours: 0 Dose: 30 Frequency: DAILY@0800 Days: 3 Hours: 0 Dose: 20 Frequency: DAILY@0800 Days: 3 Hours: 0 Dose: 10 30 July 21, 2017 10:52am August 05, 2017 10:49am Please contact the information source for Taper Schedule details. Start: 07-11-2017 End: 08-05-2017 Prednisone Discontinued 0 MG PO DAILY July 21, 2017 9:52am August 05, 2017 9:49am Umeclidinium-Vilanterol (15 sources) Anticholinergic, beta2-Adrenergic Agonist Start: 09-09-2017 End: 10-30-2017 Umeclidinium-Vilanterol (Anoro Ellipta) 62.5-25 mcg/actuation blister with device Discontinued 1 INH INHALATION Q24H 60 September 09, 2017 11:03am October 30, 2017 10:36am Start: 09-09-2017 End: 10-30-2017 Umeclidinium-Vilanterol (Ano ro Ellipta) 62.5-25 mcg/actuation blister with device Discontinued 1 NMA INHALATION Q24H 60 3 September 09, 2017 12:00am October 30, 2017 10:36am Start: 09-09-2017 End: 10-30-2017 Umeclidinium-Vilanterol (Ano ro Ellipta) 62.5-25 mcg/actuation blister with device Discontinued 1 NMA INHALATION Q24H 60 September 09, 2017 12:00am October 30, 2017 10:36am Start: 09-09-2017 End: 10-30-2017 Umeclidinium-Vilanterol (Ano ro Ellipta) 62.5-25 mcg/actuation blister with device Discontinued 1 INH INHALATION Q24H 60 September 08, 2017 11:00pm October 30, 2017 9:36am Start: 09-09-2017 End: 10-30-2017 Umeclidinium-Vilanterol (Ano ro Ellipta) 62.5-25 mcg/actuation blister with device Discontinued 1 INH INHALATION Q24H 60 September 09, 2017 12:00am October 30, 2017 10:36am valsartan 320 mg oral tablet (14 sources) Angiotensin 2 Receptor Allison Start: 03-30-2024 End: 02-10-2025 take 1 tablet by mouth once daily Valsartan 320 mg tablet Discontinued 320 mg PO daily 90 March 30, 2024 1:00am February 10, 2025 10:24am Start: 10-13-2023 End: 03-30-2024 take 1 tablet by mouth once daily Valsartan 160 mg tablet Discontinued 160 mg PO DAILY 90 3 Tamiko 17th, 2024 12:00am March 30, 2024 5:17pm Problems Active Problems Problem Classification Problem Date Documented Da te Episodic/Chronic Abdominal pain (7 sources) Right lower quadrant pain; Translations: [Right lower quadrant pain] 10-04-2024 Episodic Asthma (1 source) Unspecified asthma, uncomplicated; Translations: [Unspecified asthma, uncomplicated] Onset: 02-10-2025 Chronic Cancer of bladder (15 sources) H/O: malignant neoplasm; Translations: [Personal history of malignant neoplasm of bladder] 08-05-2017 Episodic Chronic obstructive pulmonary disease and bronchiectasis (20 sources) Asthma-chronic obstructive pulmonary disease overlap syndrome; Translations: [Chronic obstructive pulmonary disease, unspecified] Onset: 06-06-2024 Chronic Comment on above: FEV1 53% of predicte d INHALER FEV1 54% Prednisone taper April 2024, December 2024February 2024 total eosinophil count 400 Coronary atherosclerosis and other heart disease (14 sources) Coronary arteriosclerosis; Translations: [Atherosclerotic heart disease of [place] coronary artery without angina pectoris] Onset: 09-28-2024 10-13-2023 Chronic Disorders of lipid metabolism (14 sources) Dyslipidemia; Translations: [Hyperlipidemia, unspecified] Onset: 09-28-2024 10-13-2023 Chronic Essential hypertension (19 sources) Hypertensive disorder; Translations: [Essential (primary) hypertension] Onset: 09-28-2024 07-09-2022 Chronic Fever of unknown origin (1 source) Fever, unspecified; Translations: [Fever, unspecified] Onset: 01-25-2025 Episodic Genitourinary symptoms and ill-defined conditions (11 sources) Urine cytology abnormal; Translations: [Other abnormal findings on cytological and histological examination of urine] 03-05-2023 Episodic Immunizations and screening for infectious disease (20 sources) Patient encounter status; Translations: [Encounter for screening for COVID-19] 05-04-2021 Episodic Other and unspecified benign neoplasm (10 sources) History of polyp of colon; Translations: [Personal history of colonic polyps] 04-03-2023 Episodic Other and unspecified benign neoplasm (3 sources) Personal history of colonic polyps; Translations: [Personal history of colonic polyps] 04-03-2023 Episodic Other gastrointestinal disorders (15 sources) Stool DNA-based colorectal cancer screening positive; Translations: [Other fecal abnormalities] 06-19-2018 Episodic Other gastrointestinal disorders (7 sources) Constipation; Translations: [Constipation, unspecified] 10-04-2024 Episodic Other lower respiratory disease (15 sources) Dyspnea; Translations: [Shortness of breath] 08-14-2021 Episodic Comment on above: WITH [address] AIRS Other lower respiratory disease (11 sources) Lung mass; Translations: [Other nonspecific abnormal finding of lung field] 06-09-2023 Episodic Comment on above: 1 cm RUL Other lower respiratory disease (2 sources) Other nonspecific abnormal finding of lung field; Translations: [Swelling, mass, or lump in chest] Onset: 01-21-2025 06-12-2023 Episodic Other lower respiratory disease (7 sources) History of chronic obstructive airway disease; Translations: [Personal history of other diseases of the respiratory system] 06-18-2024 Episodic Other lower respiratory disease (2 sources) Shortness of breath; Translations: [Shortness of breath] Onset: 01-24-2025 Episodic Other screening for suspected conditions (not mental disorders or infectious disease) (14 sources) Cardiovascular stress test abnormal; Translations: [Abnormal result of other cardiovascular function study] 10-13-2023 Episodic Other upper respiratory disease (1 source) Other seasonal allergic rhinitis; Translations: [Other seasonal allergic rhinitis] Onset: 02-21-2025 Chronic Other upper respiratory disease (1 source) Seasonal allergy; Translations: [Other seasonal allergic rhinitis] 02-10-2025 Chronic Peripheral and visceral atherosclerosis (20 sources) Intermittent claudication; Translations: [Peripheral vascular disease, unspecified] Onset: 09-28-2024 10-13-2023 Chronic Comment on above: Complains of exertio nal left calf discomfort. Residual codes; unclassified (20 sources) Tobacco use and exposure - finding; Translations: [Tobacco use] 11-24-2021 Episodic Septicemia (except in labor) (15 sources) Sepsis; Translations: [Sepsis, unspecified organism] 08-05-2017 Episodic Substance-related disorders (20 sources) Cigarette smoker ; Translations: [Nicotine dependence, cigarettes, uncomplicated] Onset: 09-28-2024 Chronic Viral infection (15 sources) Disease caused by 2019-nCoV; Translations: [COVID-19] 05-04-2021 Episodic Past or Other Problems Problem Classification Problem Date Documented Da te Episodic/Chronic Nonspecific chest pain (20 sources) Chest pain; Translations: [Chest pain, unspecified] Onset: 06-23-2024 12-02-2021 Episodic Unclassified (15 sources) bladder cancer surgery 08-14-2021 Comment on above: REMOVED TUMOR, OVER 10 YRS AGO Results Test Name Value Interpretation Reference Range Facility Allergen, Mini-Raston 2024 A. ALTERNATA <0.10 Normal Class 0 [facility] Comment on above: Performed By: #### L 3200.1600, L5500.0300, L100.0100 #### [facility] [address] [place], [address] BERMUDA GRASS <0.10 Normal Class 0 [facility] Comment on above: Performed By: #### L 3200.1600, L5500.0300, L100.0100 #### [facility] [address] [place], [address] [place], [place] <0.10 Normal Class 0 [facility] Comment on above: Performed By: #### L 3200.1600, L5500.0300, L100.0100 #### [facility] [address] [place], [address] CAT HAIR/DANDER <0.10 Normal Class 0 [facility] Comment on above: Performed By: #### L 3200.1600, L5500.0300, L100.0100 #### [facility] [address] [place], [address] COMMENT Comment Normal . [facility] Comment on above: Result Comment: Lewis rdz of Specific IgE Class Description of Class ----- < 0.10 0 Negative 0.10 - 0.31 0/I Equivocal/Low 0.32 - 0.55 I Low 0.56 - 1.40 II Moderate 1.41 - 3.90 III High 3.91 - 19.00 IV Very High 19.01 - 100.00 V Very High >100.00 Very High Performed By: #### L 3200.1600, L5500.0300, L100.0100 #### [facility] [address] [place], [address] D FARINAE MITE <0.10 Normal Class 0 [facility] Comment on above: Performed By: #### L 3200.1600, L5500.0300, L100.0100 #### [facility] [address] [place], [address] D PTERONYSSINUS <0.10 Normal Class 0 [facility] Comment on above: Performed By: #### L 3200.1600, L5500.0300, L100.0100 #### [facility] [address] [place], [address] DOG EPITHELIA <0.10 Normal Class 0 [facility] Comment on above: Performed By: #### L 3200.1600, L5500.0300, L100.0100 #### [facility] [address] [place], [address] ELM,AMER WHITE <0.10 Normal Class 0 [facility] Comment on above: Performed By: #### L 3200.1600, L5500.0300, L100.0100 #### [facility] [address] [place], [address] Mouse Urine <0.10 Normal Class 0 [facility] Comment on above: Result Comment: Perf ormed at: [address] [id number] Family Protection Specialist: Nica Shipley MD, Phone: [phone] Performed By: #### L 3200.1600, L5500.0300, L100.0100 #### [facility] [address] [place], [address] OAK, WHITE <0.10 Normal Class 0 [facility] Comment on above: Performed By: #### L 3200.1600, L5500.0300, L100.0100 #### [facility] [address] [place], [address] PLANTAIN,ENGLSH <0.10 Normal Class 0 [facility] Comment on above: Performed By: #### L 3200.1600, L5500.0300, L100.0100 #### [facility] [address] [place], [address] RAGWEED SH/COM <0.10 Normal Class 0 [facility] Comment on above: Performed By: #### L 3200.1600, L5500.0300, L100.0100 #### [facility] [address] [place], [address] Immunoglobulin Cornel 5 IMMUNOGLOB E QN 8 IU/mL Normal 6-495 [facility] Comment on above: Result Comment: Perf ormed at: [facility] [id number] Family Protection Specialist: Nica Shipley MD, Phone: [phone] Performed By: #### L 3200.1600, L5500.0300, L100.0100 #### [facility] [address] [place], [address] Absolute lymphocyte countOrd ered By: Kierra Delgado on 02-10-2025 Lymphocytes Auto (Unsp spec) [#/Vol] 1.48 10*3/uL 0.83-4.51 [facility] Absolute neutrophil countOrd ered By: Kierra Delgado on 02-10-2025 Neutrophils (Bld) [#/Vol] 8.3 10*3/uL High 2.0-7.7 [facility] Automated lymphocyte count a s percentage of total leukocytesOrdered By: Kierra Delgado on 02-10-2025 Lymphocytes/100 WBC Auto (Unsp spec) 13.9 % Low 19-41 [facility] Basophil percentageOrdered B y: Kierra Delgado on 02-10-2025 Basophils/100 WBC (Bld) 0.3 % 0-1 [facility] CBC W/Diff, Automatedon 01-26 Absolute Lymph 1.48 X10 3/uL Normal 0.83-4.51 [facility] Comment on above: Performed By: #### L 3200.1600, L5500.0300, L100.0100 #### [facility] [address] [place], [address] Absolute Neut 8.3 X10 3/uL High 2.0-7.7 [facility] Comment on above: Performed By: #### L 3200.1600, L5500.0300, L100.0100 #### [facility] [address] [place], [address] Basophils/100 WBC (Bld) 0.3 % Normal 0-1 [facility] Comment on above: Performed By: #### L 3200.1600, L5500.0300, L100.0100 #### [facility] [address] [place], [address] Eosinophils/100 WBC (Bld) 1.3 % Normal 0-5 [facility] Comment on above: Performed By: #### L 3200.1600, L5500.0300, L100.0100 #### [facility] [address] [place], [address] Erythrocyte distribution width (RBC) [Ratio] 12.9 % Normal 11.6-14.6 [facility] Comment on above: Performed By: #### L 3200.1600, L5500.0300, L100.0100 #### [facility] [address] [place], [address] Hematocrit (Bld) [Volume fraction] 39.8 % Low 40-54 [facility] Comment on above: Performed By: #### L 3200.1600, L5500.0300, L100.0100 #### [facility] [address] [place], [address] Hemoglobin (Bld) [Mass/Vol] 13.4 g/dL Normal 13.0-16.5 [facility] Comment on above: Performed By: #### L 3200.1600, L5500.0300, L100.0100 #### [facility] [address] [place], [address] IG% 0.300 Normal 0.0-0.9 [facility] Comment on above: Result Comment: IG% - Immature Granulocytes (promyelocytes, myelocytes and metamyelocytes) > 1% indicates that a LEFT SHIFT is Present. Performed By: #### L 3200.1600, L5500.0300, L100.0100 #### [facility] [address] [place], [address] Lymphocytes/100 WBC (Bld) 13.9 % Low 19-41 [facility] Comment on above: Performed By: #### L 3200.1600, L5500.0300, L100.0100 #### [facility] [address] [place], [address] MCH (RBC) [Entitic mass] 30.7 pg Normal 27.0-32.0 [facility] Comment on above: Performed By: #### L 3200.1600, L5500.0300, L100.0100 #### [facility] [address] [place], [address] MCHC (RBC) [Mass/Vol] 33.7 g/dL Normal 32-36 [facility] Comment on above: Performed By: #### L 3200.1600, L5500.0300, L100.0100 #### [facility] [address] [place], [address] MCV (RBC) [Entitic vol] 91.3 fL Normal 80-94 [facility] Comment on above: Performed By: #### L 3200.1600, L5500.0300, L100.0100 #### [facility] [address] [place], [address] Monocytes/100 WBC (Bld) 6.7 % Normal 0-10 [facility] Comment on above: Performed By: #### L 3200.1600, L5500.0300, L100.0100 #### [facility] [address] [place], [address] Neutrophils/100 WBC (Bld) 77.5 % High 47-70 [facility] Comment on above: Performed By: #### L 3200.1600, L5500.0300, L100.0100 #### [facility] [address] [place], [address] Nucleated RBC (Bld) [#/Vol] 0 10*3/uL Normal 0-5 [facility] Comment on above: Performed By: #### L 3200.1600, L5500.0300, L100.0100 #### [facility] [address] [place], [address] Platelet mean volume (Bld) [Entitic vol] 9.7 fL Normal 6.2-12.0 [facility] Comment on above: Performed By: #### L 3200.1600, L5500.0300, L100.0100 #### [facility] [address] [place], [address] Platelets (Bld) [#/Vol] 245 10*3/uL Normal 150-450 [facility] Comment on above: Performed By: #### L 3200.1600, L5500.0300, L100.0100 #### [facility] [address] [place], [address] RBC (Bld) [#/Vol] 4.36 10*6/uL Low 4.6-6.2 [facility] Comment on above: Performed By: #### L 3200.1600, L5500.0300, L100.0100 #### [facility] [address] [place], [address] RDW SD 43.6 fl Normal 35.1-43.9 [facility] Comment on above: Performed By: #### L 3200.1600, L5500.0300, L100.0100 #### [facility] [address] [place], [address] WBC (Bld) [#/Vol] 10.7 10*3/uL Normal 4.4-11.0 [facility] Comment on above: Performed By: #### L 3200.1600, L5500.0300, L100.0100 #### [facility] [address] [place], [address] Eosinophil percentageOrdered By: Kierra Delgado on 02-10-2025 Eosinophils/100 WBC (Bld) 1.3 % 0-5 [facility] Erythrocyte distribution wid th ratioOrdered By: Kierra Delgado on 02-10-2025 Erythrocyte distribution width (RBC) [Ratio] 12.9 % 11.6-14.6 [facility] Erythrocyte distribution wid th standard deviationOrdered By: Kierra Delgado on 02-10-2025 Erythrocyte distribution width (RBC) [Ratio] 43.6 fl 35.1-43.9 [facility] Hematocrit Auto (Bld) [Volum e fraction]Ordered By: Kierra Delgado on 02-10-2025 Hematocrit (Bld) [Volume fraction] 39.8 % Low 40-54 [facility] Hemoglobin measurementOrdere d By: Kierra Delgado on 02-10-2025 Hemoglobin (Bld) [Mass/Vol] 13.4 g/dL 13.0-16.5 [facility] IgEOrdered By: Kierra de león on 02-10-2025 IgE 8 IU/mL 6-495 [facility] Comment on above: Performed at: [facility] [address] [id number] Director: Nica Shipley MD, Phone: [phone] Immature granulocytes/100 WB C Auto (Bld)Ordered By: Kierra Delgado on 02-10-2025 Immature granulocytes/100 WBC (Bld) 0.300 % 0.0-0.9 [facility] Comment on above: IG% - Immature Granu locytes (promyelocytes, myelocytes and metamyelocytes) > 1% indicates that a LEFT SHIFT is Present. Laboratory - Miscellaneous t estsOrdered By: Kierra Delgado on 02-10-2025 Service comment (Unsp spec) [Interp] Comment . [facility] Comment on above: Levels of Specific I gE Class Description of Class ----- < 0.10 0 Negative 0.10 - 0.31 0/I Equivocal/Low 0.32 - 0.55 I Low 0.56 - 1.40 II Moderate 1.41 - 3.90 III High 3.91 - 19.00 IV Very High 19.01 - 100.00 V Very High >100.00 Very High MCV (mean corpuscular volume ) determinationOrdered By: Kierra Delgado on 02-10-2025 MCV (RBC) [Entitic vol] 91.3 fL 80-94 [facility] Mean corpuscular hemoglobin (MCH) determinationOrdered By: Kierra Delgado on 02-10-2025 MCH (RBC) [Entitic mass] 30.7 pg 27.0-32.0 [facility] Mean corpuscular hemoglobin concentration (MCHC) determinationOrdered By: Kierra Delgado on 02-10-2025 MCHC (RBC) [Mass/Vol] 33.7 g/dL 32-36 [facility] Mean platelet volume determi nationOrdered By: Kierra Delgado on 02-10-2025 Platelet mean volume (Bld) [Entitic vol] 9.7 fL 6.2-12.0 [facility] Monocyte percentageOrdered B y: Kierra Delgado on 02-10-2025 Monocytes/100 WBC (Bld) 6.7 % 0-10 [facility] Neutrophil percentageOrdered By: Kierra Delgado on 02-10-2025 Neutrophils/100 WBC (Bld) 77.5 % High 47-70 [facility] Nucleated red blood cell per centageOrdered By: Kierra Delgado on 02-10-2025 Nucleated RBC/100 WBC (Bld) [Ratio] 0 % 0-5 [facility] Platelet countOrdered By: Benson brendanjose Delgado on 02-10-2025 Platelets (Bld) [#/Vol] 245 10*3/uL 150-450 [facility] Pulmonary Visit Reporton Pulmonary Visit Report [facility] [address] [place] [address] OFFICE VISIT Date of Service: 02/10/25 MR#: [id number] Acct: [id number] Name: ALLAN RENE Rep #: [id number] : 1945 Provider: GUS Delgado Age/Sex: 79/M Location: [facility] [email or web address].PMW Status: Signed Assessment and Plan Assessment and Plan (1) COPD with asthma: Status: Chronic Comment: FEV1 54% Prednisone taper April 2024, December total eosinophil count 400 Plan: Deteriorated. He has had 2 exacerbations this year. I am escalating therapy by placing him on a biologic for his Asthma/COPD overlap syndrome. Obtaining blood work today to confirm the best fit. I suspect that Dupixent will be a good choice for both mechanism of action and prescription coverage. Continue triple therapy with use of Trelegy. Education provided, both by conversation and printed materials. All questions answered. He is agreeable with this plan. Follow-up in the office in 3 months to evaluate his response to therapy. Contact the office with any new or worsening symptoms in the meantime. (2) Tobacco use: Status: Chronic Plan: Encouraged ongoing smoking cessation. He remains appropriate for LDCT to be dcl2lnihhu in 12 months. Ordered accordingly. Orders: Orders Low Dose CT Lung Screening 12/27/25 F17.210 - Nicotine dependence, cigarettes, uncomplicated, Z72.0 - Tobacco use Allergen, Mini-Rast Today J30.2 - Other seasonal allergic rhinitis CBC W/Diff, Automated Today J30.2 - Other seasonal allergic rhinitis Immunoglobulin E Today J30.2 - Other seasonal allergic rhinitis Medications: New dupilumab (Dupixent) 300 mg (2 mL) subcut Q2W 2 mL 11RF J44.9 - Chronic obstructive pulmonary disease, unspecified, J45.909 - Unspecified asthma, uncomplicated Plan Details Additional Comments: This note was generated with [employer] dictation software. It may contain incorrect words, spelling, and punctuation that were not noted in checking the note before signing. Portions of this documentation have been copied and pasted from previous office visit notes to provide a cohesive continuity of the history. The note has been reviewed, edited, and updated, as necessary. I have spent 40 minutes today reviewing labs, records and history. Time includes coordinating care, interpretation of tests. This also includes time I spent with the patient for exam, treatment plan and education as well as documenting clinical information. Follow Up: 3 Months HPI 6 m fu Chief Complaint: Test results HPI Comments Details: He presents today for follow-up of his asthma/COPD and to discuss test results. He is ambulatory and on room air. He has not recently been seen in the emergency department or urgent care for respiratory illness. He has not required antibiotics or prednisone for any breathing problems since he was treated by our practice last month. He said he always contacts our office for respiratory concerns. He is compliant with Trelegy 1 puff daily. He reports rinsing his mouth out after each use. He denies any medication side effect such as sore throat or thrush. He has not recently needed his nebulizer. He quit smoking "3 weeks ago". He has shortness of breath on exertion. He has a cough that is sometimes productive of yellow sputum. He denies any hemoptysis. He reports chest congestion and wheezing. He denies any chest pain or palpitations. He has not had any fever, chills or body aches. Test results personally reviewed with patient: Pulmonary stress test completed January 05, 2025. The patient was able to ambulate total of 1024 feet over the course of 6 minutes. He did not become hypoxic and does not currently qualify for supplemental oxygen. CT scan of the chest without contrast completed on January 13, 2025. Impression is severe bullous emphysema. No focal mass. Pulmonary function test completed on January 13, 2025. Impression is irreversible moderately severe large airway obstructive ventilatory defect with associated air trapping and moderate reduction in diffusing capacity. FEV1 54% of predicted. Intake Vital Signs 08/05/24 08:21 02/10/25 08:33 Height 5 ft 10 in 5 ft 9.5 in Weight: 167 lb BMI 24.3 BP 130/65 H Blood Pressure Location Rt brachial Position Sitting Respiration 20 H Pulse 86 Pulse Source Monitor Temp 96.7 F L Temperature Source Temporal Artery Pulse Oximetry (%) 97 Oxygen Delivery Method room air Intake Visit Reasons: 6 m fu Chief Complaint: Stomach Pain Director [employer] Required: No Accompanied by: Allergies No Known Allergies Allergy (Verified 02/10/25 10:21) Medications ???Medication ???Instructions ???Recorded ???Confirmed ???Type albuterol sulfa (more content not included)... Normal [facility] RBC Auto (Bld) [#/Vol]Ordere d By: Kierra Delgado on 02-10-2025 RBC (Bld) [#/Vol] 4.36 10*6/uL Low 4.6-6.2 [facility] Serum Berm[place] grass IgE anti body assay (units/volume)Ordered By: Kierra Delgado on 02-10-2025 Berm[place] grass IgE Qn (S) <0.10 kU/L Class 0 [facility] Serum house dust mi te IgE antibody assay (units/volume)Ordered By: Kierra Delgado on 02-10-2025 house dust mite IgE Qn (S) <0.10 kU/L Class 0 [facility] Serum [place] blue grass Ig E antibody assay (units/volume)Ordered By: Kierra Delgado on 02-10-2025 [place] blue grass IgE Qn (S) <0.10 kU/L Class 0 [facility] Serum cat dander IgE antibod y assay (units/volume)Ordered By: Kierra Delgado on 02-10-2025 Cat dander IgE Qn (S) <0.10 kU/L Class 0 [facility] Serum dog epithelium IgE ant ibody assay (units/volume)Ordered By: Kierra Delgado on 02-10-2025 Dog epithelium IgE Qn (S) <0.10 kU/L Class 0 [facility] Serum white elm IgE antibody assay (units/volume)Ordered By: Kierra Delgado on 02-10-2025 White [place]m IgE Qn (S) <0.10 kU/L Class 0 [facility] Serum white oak IgE antibody assay (units/volume)Ordered By: Kierra Delgado on 02-10-2025 [place] IgE Qn (S) <0.10 kU/L Class 0 [facility] White blood cell (WBC) count Ordered By: Kierra Delgado on 02-10-2025 WBC (Bld) [#/Vol] 10.7 10*3/uL 4.4-11.0 [facility] Influenza virus A and B and SARS-CoV-2 (COVID-19) and Respiratory syncytial virus RNAOrdered By: Kierra Delgado on 01-20-2025 SARS-CoV-2 (COVID-19) RNA BETSEY+probe Ql (Unsp spec) [facility] M100.678on 01-20-2025 M100.678 Pending SARS-CoV-2 (COVID 19) Negative INFLUENZA A Negative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 distribution width (RBC) [Ratio] 13.2 % 11.6-14.6 [facility] Immature granulocytes/100 WBC (Bld) 0.400 % 0.0-0.9 [facility] Comment on above: IG% - Immature Granu locytes (promyelocytes, myelocytes and metamyelocytes) > 1% indicates that a LEFT SHIFT is Present. MCH (RBC) [Entitic mass] 30.8 pg 27.0-32.0 [facility] Nucleated RBC/100 WBC (Bld) [Ratio] 0 % 0-5 [facility] MCHC Auto (RBC) [Mass/Vol]Or dered By: Lucía Whitten on 03-01-2023 MCHC (RBC) [Mass/Vol] 33.4 g/dL 32-36 [facility] Mucus LM Ql (Urine sed)Order ed By: Lucía Whitten on 03-01-2023 Mucus Ql (Urine sed) 0 SEEN /hpf [facility] Nitrite Test strip Ql (U)Ord ered By: Lucía Whitten on 03-01-2023 Nitrite Ql (U) Negative Negative [facility] No Panel InformationOrdered By: Lucía Whitten on 03-01-2023 Estimated GFR (MDRD) Amer 90 mL/min >60 [facility] Comment on above: GFR Calc Estimated GFR (MDRD) Non-Af Amer 75 mL/min >60 [facility] Comment on above: Non- GFR Calc Prostate Specific Antigen Screen 3.68 ng/mL 0.00-4.00 [facility] Comment on above: This test was perfor med using the TPSA assay method for [employer] chemistry system. Values obtained with differentassay methods cannot be used interchangably.When changing PSA assays in the course of monitoring apatient, additional sequential testing should be carriedout to confirm baseline values. Thyroid Stimulating Hormone (TSH) 2.29 uIU/mL 0.358-3.74 [facility] Vitamin D 25-Hydroxy 25.2 ng/mL [facility] Comment on above: Vitamin D 25(OH) Sta tus Range Deficiency <20 ng/mL (50nmol/L) Insufficiency 20 - 30 ng/mL (50 - 75 nmol/L) Sufficiency 30 - 100 ng/mL (75 - 250 nmol/L) Toxicity >100 ng/mL (>250 nmol/L) Platelets bldOrdered By: Ree Whitten on 03-01-2023 Platelets (Bld) [#/Vol] 221 10*3/uL 150-450 [facility] Protein Test strip Ql (U)Ord ered By: Lucía Whitten on 03-01-2023 Protein Ql (U) Negative Negative [facility] Serum or plasma albumin ernesto urement (mass/volume)Ordered By: Lucía Whitten on 03-01-2023 Albumin [Mass/Vol] 3.6 g/dL 3.2-5.0 [facility] Serum or plasma albumin/glob ulin mass ratioOrdered By: Lucía Whitten on 03-01-2023 Albumin/Globulin [Mass ratio] 0.9 {ratio} 0.9-2.4 [facility] Serum or plasma calcium ernesto urement (mass/volume)Ordered By: Lucía Whitten on 03-01-2023 Calcium [Mass/Vol] 8.8 mg/dL 8.5-10.1 [facility] Serum or plasma cholesterol in HDL measurement (mass/volume)Ordered By: Lucía Whitten on 03-01-2023 Cholesterol in HDL [Mass/Vol] 32 mg/dL >40 [facility] Comment on above: The drugs N-Acetylcy steine and Metamizole may falsely depress this assay. Reference Range HDL <40 mg/dL Low HDL Cholesterol HDL >or= 60 mg/dL High HDL Cholesterol Serum or plasma cholesterol in VLDL measurement (mass/volume)Ordered By: Lucía Whitten on 03-01-2023 Cholesterol in VLDL [Mass/Vol] 22 mg/dL 5-40 [facility] Serum or plasma creatinine m easurement (mass/volume)Ordered By: Lucía Whitten on 03-01-2023 Creatinine [Mass/Vol] 1.03 mg/dL 0.70-1.30 [facility] Comment on above: The validity of the calculated GFR & GFRAA in patients over 70 years has not been determined. Clinical correlation is essential. Serum or plasma low density lipoprotein (LDL) cholesterol measurement (mass/volume)Ordered By: Lucía Whitten on 03-01-2023 Cholesterol in LDL [Mass/Vol] 98 mg/dL 0-130 [facility] Serum or plasma urea nitroge n measurement (mass/volume)Ordered By: Lucía Whitten on 03-01-2023 Urea nitrogen [Mass/Vol] 18 mg/dL 7-18 [facility] Squamous epithelial cells de tection in urine sediment by light microscopyOrdered By: Lucía Whitten on 03-01-2023 Epithelial cells.squamous LM Ql (Urine sed) 0 SEEN /hpf 0-5 [facility] Thin prep Papanicolaou smear with manual screeningOrdered By: Lucía Whitten on 03-01-2023 Thin prep Papanicolaou smear with manual screening 13 U/L 15-37 [facility] Thin prep Papanicolaou smear with manual screening 3 5-15 [facility] Urine blood detectionOrdered By: Lucía Whitten on 03-01-2023 RBC Ql (U) Negative Negative [facility] RBC Ql (U) 0 SEEN /hpf 0-5 [facility] Urine clarityOrdered By: Ree Whitten on 03-01-2023 Clarity (U) Clear Clear [facility] Urine color determinationOrd ered By: Lucía Whitten on 03-01-2023 Color (U) Yellow Yellow [facility] Urine glucose detectionOrder ed By: Lucía Whitten on 03-01-2023 Glucose Ql (U) Normal mg/dl Normal [facility] Urine leukocyte esterase det ection by dipstickOrdered By: Lucía Whitten on 03-01-2023 Leukocyte esterase Test strip Ql (U) Negative Negative [facility] Urine pHOrdered By: Lucía dsouza on 03-01-2023 pH (U) 6.0 [pH] 5.0 - 8.0 [facility] Urine sediment bacteria coun t by microscopy (number/high power field)Ordered By: Lucía Whitten on 03-01-2023 Bacteria LM.HPF (Urine sed) [#/Area] 0 /[HPF] None Seen [facility] Urine specific gravity measu rementOrdered By: Lucía Whitten on 03-01-2023 Specific gravity (U) [Rel density] 1.020 1.002-1.030 [facility] Urobilinogen Auto test strip Ql (U)Ordered By: Lucía Whitten on 03-01-2023 Urobilinogen Ql (U) Normal mg/dl Normal [facility] Absolute lymphocyte countOrd ered By: Charlie Morrison on 07-08-2022 Lymphocytes Auto (Unsp spec) [#/Vol] 1.05 10*3/uL 0.83-4.51 [facility] Basophil percentageOrdered B y: Charlie Morrison on 07-08-2022 Basophils/100 WBC (Bld) 0.3 % 0-1 [facility] Chloride [Moles/Vol] 105 mmol/L 98-107 [facility] Eosin[facility]/100 WBC (Bld) 0.1 % 0-5 [facility] Glucose [Mass/Vol] 152 mg/dL 74-106 [facility] Comment on above: Fasting Glucose resu lt greater than or equal to 126 mg/dL suggests DIABETES MELLITUS per A.D.A. criteria. Neutrophils (Bld) [#/Vol] 18.6 10*3/uL 2.0-7.7 [facility] Neutrophils/100 WBC (Bld) 87.4 % 47-70 [facility] Potassium [Moles/Vol] 4.2 mmol/L 3.5-5.1 [facility] Sodium [Moles/Vol] 137 mmol/L 136-145 [facility] WBC (Bld) [#/Vol] 21.2 10*3/uL 4.4-11.0 [facility] Blood erythrocytes count (nu mber/volume)Ordered By: Charlie Morrison on 07-08-2022 RBC (Bld) [#/Vol] 4.69 10*6/uL 4.6-6.2 [facility] Blood hemoglobin measurement (mass/volume)Ordered By: Charlie Morrison on 07-08-2022 Hemoglobin (Bld) [Mass/Vol] 14.2 g/dL 13.0-16.5 [facility] Blood lymphocytes/100 leukoc ytesOrdered By: Charlie Morrison on 07-08-2022 Lymphocytes/100 WBC (Bld) 4.9 % 19-41 [facility] Blood monocytes/100 leukocyt esOrdered By: Charlie Morrison on 07-08-2022 Monocytes/100 WBC (Bld) 6.8 % 0-10 [facility] Blood platelet mean volumeOr dered By: Charlie Morrison on 07-08-2022 Platelet mean volume (Bld) [Entitic vol] 10.3 fL 6.2-12.0 [facility] Determination of erythrocyte mean corpuscular volume (MCV)Ordered By: Charlie Morrison on 07-08-2022 MCV (RBC) [Entitic vol] 91.0 fL 80-94 [facility] Hematocrit Auto (Bld) [Volum e fraction]Ordered By: Charlie Morrison on 07-08-2022 Hematocrit (Bld) [Volume fraction] 42.7 % 40-54 [facility] Influenza virus A and B and SARS-CoV-2 (COVID-19) Ag panel - Upper respiratory specimOrdered By: Charlie Morrison on 07-08-2022 SARS-CoV-2 (COVID-19) RNA BETSEY+probe Ql (Resp) [facility] Laboratory - Chemistry and C hemistry - challengeOrdered By: Charlie Morrison on 07-08-2022 CO2 [Moles/Vol] 24.0 mmol/L 21.0-32.0 [facility] Magnesium [Mass/Vol] 1.8 mg/dL 1.6-2.6 [facility] Natriuretic peptide B (Bld) [Mass/Vol] 25.7 pg/mL 0-100 [facility] Urea nitrogen/Creatinine [Mass ratio] 15.2 mg/mg 10-20 [facility] Laboratory - Hematology and Cell countsOrdered By: Charlie Morrison on 07-08-2022 Erythrocyte distribution width (RBC) [Entitic vol] 43.0 fL 35.1-43.9 [facility] Erythrocyte distribution width (RBC) [Ratio] 13.0 % 11.6-14.6 [facility] Immature granulocytes/100 WBC (Bld) 0.500 % 0.0-0.9 [facility] Comment on above: IG% - Immature Granu locytes (promyelocytes, myelocytes and metamyelocytes) > 1% indicates that a LEFT SHIFT is Present. MCH (RBC) [Entitic mass] 30.3 pg 27.0-32.0 [facility] Nucleated RBC/100 WBC (Bld) [Ratio] 0 % 0-5 [facility] MCHC Auto (RBC) [Mass/Vol]Or dered By: Charlie Morrison on 07-08-2022 MCHC (RBC) [Mass/Vol] 33.3 g/dL 32-36 [facility] No Panel InformationOrdered By: Charlie Morrison on 07-08-2022 Estimated Creatinine Clearance Calc 56.99 ml/min [facility] Estimated GFR (MDRD) Amer 82 mL/min >60 [facility] Comment on above: GFR Calc Estimated GFR (MDRD) Non-Af Amer 68 mL/min >60 [facility] Comment on above: Non- GFR Calc Platelets bldOrdered By: Bill Morrison on 07-08-2022 Platelets (Bld) [#/Vol] 246 10*3/uL 150-450 [facility] Serum or plasma calcium ernesto urement (mass/volume)Ordered By: Charlie Morrison on 07-08-2022 Calcium [Mass/Vol] 9.4 mg/dL 8.5-10.1 [facility] Serum or plasma creatinine m easurement (mass/volume)Ordered By: Charlie Morrison on 07-08-2022 Creatinine [Mass/Vol] 1.12 mg/dL 0.70-1.30 [facility] Comment on above: The validity of the calculated GFR & GFRAA in patients over 70 years has not been determined. Clinical correlation is essential. Serum or plasma urea nitroge n measurement (mass/volume)Ordered By: Charlie Morrison on 07-08-2022 Urea nitrogen [Mass/Vol] 17 mg/dL 7-18 [facility] Thin prep Papanicolaou smear with manual screeningOrdered By: Charlie Morrison on 07-08-2022 Thin prep Papanicolaou smear with manual screening 8 5-15 [facility] Absolute lymphocyte counton 11-24-2021 Lymphocytes Auto (Unsp spec) [#/Vol] 2.68 10*3/uL 0.83-4.51 [facility] Work Phone: Basophil percentageon 2021 Basophils/100 WBC (Bld) 0.5 % 0-1 [facility] Work Phone: Chloride [Moles/Vol] 108 mmol/L 98-107 [facility] Work Phone: Eosinophils/100 WBC (Bld) 2.2 % 0-5 [facility] Work Phone: Glucose [Mass/Vol] 97 mg/dL 74-106 [facility] Work Phone: Neutrophils (Bld) [#/Vol] 8.7 10*3/uL 2.0-7.7 [facility] Work Phone: Neutrophils/100 WBC (Bld) 68.4 % 47-70 [facility] Work Phone: Potassium [Moles/Vol] 4.2 mmol/L 3.5-5.1 [facility] Work Phone: Sodium [Moles/Vol] 139 mmol/L 136-145 [facility] Work Phone: WBC (Bld) [#/Vol] 12.8 10*3/uL 4.4-11.0 [facility] Work Phone: Blood erythrocytes count (nu mber/volume)on 11-24-2021 RBC (Bld) [#/Vol] 4.70 10*6/uL 4.6-6.2 [facility] Work Phone: Blood hemoglobin measurement (mass/volume)on 11-24-2021 Hemoglobin (Bld) [Mass/Vol] 14.4 g/dL 13.0-16.5 [facility] Work Phone: Blood lymphocytes/100 leukoc yteson 11-24-2021 Lymphocytes/100 WBC (Bld) 21.0 % 19-41 [facility] Work Phone: Blood monocytes/100 leukocyt eson 11-24-2021 Monocytes/100 WBC (Bld) 7.4 % 0-10 [facility] Work Phone: Blood platelet mean volumeon 11-24-2021 Platelet mean volume (Bld) [Entitic vol] 10.3 fL 6.2-12.0 [facility] Work Phone: Determination of erythrocyte mean corpuscular volume (MCV)on 11-24-2021 MCV (RBC) [Entitic vol] 91.3 fL 80-94 [facility] Work Phone: Hematocrit Auto (Bld) [Volum e fraction]on 11-24-2021 Hematocrit (Bld) [Volume fraction] 42.9 % 40-54 [facility] Work Phone: Laboratory - Chemistry and C hemistry - challengeon 11-24-2021 CO2 [Moles/Vol] 27.0 mmol/L 21.0-32.0 [facility] Work Phone: Urea nitrogen/Creatinine [Mass ratio] 15.9 mg/mg 10-20 [facility] Work Phone: Laboratory - Hematology and Cell countson 11-24-2021 Erythrocyte distribution width (RBC) [Entitic vol] 45.9 fL 35.1-43.9 [facility] Work Phone: [phone] Erythrocyte distribution width (RBC) [Ratio] 13.6 % 11.6-14.6 [facility] Work Phone: [phone] Immature granulocytes/100 WBC (Bld) 0.500 % 0.0-0.9 [facility] Work Phone: [phone] Comment on above: IG% - Immature Granu locytes (promyelocytes, myelocytes and metamyelocytes) > 1% indicates that a LEFT SHIFT is Present. MCH (RBC) [Entitic mass] 30.6 pg 27.0-32.0 [facility] Work Phone: [phone] Nucleated RBC/100 WBC (Bld) [Ratio] 0 % 0-5 [facility] Work Phone: [phone] MCHC Auto (RBC) [Mass/Vol]on 11-24-2021 MCHC (RBC) [Mass/Vol] 33.6 g/dL 32-36 [facility] Work Phone: [phone] No Panel Informationon 11-24 Troponin I High Sensitivity 4 pg/mL 3.0-78.0 [facility] Work Phone: [phone] Comment on above: Please Note: [place] t Units and Gender Specific Reference Ranges. For more information see Policy Stat Procedure [place] High Sensitivity Troponin (TNIH) and attachments. Estimated Creatinine Clearance Calc 68.95 ml/min [facility] Work Phone: [phone] Estimated GFR (MDRD) Amer 100 mL/min >60 [facility] Work Phone: [phone] Comment on above: GFR Calc Estimated GFR (MDRD) Non-Af Amer 83 mL/min >60 [facility] Work Phone: [phone] Comment on above: Non- GFR Calc Platelets bldon 11-24-2021 Platelets (Bld) [#/Vol] 274 10*3/uL 150-450 [facility] Work Phone: [phone] Serum or plasma calcium ernesto urement (mass/volume)on 11-24-2021 Calcium [Mass/Vol] 9.2 mg/dL 8.5-10.1 [facility] Work Phone: Serum or plasma creatinine m easurement (mass/volume)on 11-24-2021 Creatinine [Mass/Vol] 0.94 mg/dL 0.70-1.30 [facility] Work Phone: Comment on above: The validity of the calculated GFR & GFRAA in patients over 70 years has not been determined. Clinical correlation is essential. Serum or plasma urea nitroge n measurement (mass/volume)on 11-24-2021 Urea nitrogen [Mass/Vol] 15 mg/dL 7-18 [facility] Work Phone: Thin prep Papanicolaou smear with manual screeningon 11-24-2021 Thin prep Papanicolaou smear with manual screening 4 5-15 [facility] Work Phone: Vital Signs Date Time Vital Sign Value Performing Clinician Faci lity 02-10-2025 08:33-0400 Body mass index (BMI) [Ratio] 24.3 kg/m2 Dr. Lucía Whitten MD Work Phone: [facility] 02-10-2025 08:33-0400 Body temperature 96.7 [degF] Dr. Lucía Whitten MD Work Phone: [facility] 02-10-2025 08:33-0400 Body weight 75.[address] Lucía Whitten MD Work Phone: [facility] 02-10-2025 08:33-0400 Diastolic blood pressure 65 mm[Hg] Dr. Lucía Whitten MD Work Phone: [facility] 02-10-2025 08:33-0400 Heart rate 86 /min Dr. Lucía Whitten MD Work Phone: [facility] 02-10-2025 08:33-0400 Respiratory rate 20 /min Dr. Lucía Whitten MD Work Phone: [facility] 02-10-2025 08:33-0400 SaO2% (BldA) [Mass fraction] 97 % Dr. Lucía Whitten MD Work Phone: [facility] 02-10-2025 08:33-0400 Systolic blood pressure 130 mm[Hg] Dr. Lucía Whitten MD Work Phone: [facility] 01-05-2025 12:31-0400 Body height 176.[address] Lucía Whitten MD Work Phone: [facility] 01-05-2025 12:31-0400 Body weight 78.[address] Lucía Whitten MD Work Phone: [facility] 01-05-2025 12:31-0400 Heart rate 90 /min Dr. Lucía Whitten MD Work Phone: [facility] 01-05-2025 12:31-0400 SaO2% (BldA) [Mass fraction] 98 % Dr. Lucía Whitten MD Work Phone: [facility] 10-04-2024 10:00-0400 Body height 177.[address] Lucía Whitten MD Work Phone: [facility] 10-04-2024 10:00-0400 Body mass index (BMI) [Ratio] 25.1 kg/m2 Dr. Lucía Whitten MD Work Phone: [facility] 10-04-2024 10:00-0400 Body temperature 98.2 [degF] Dr. Lucía Whitten MD Work Phone: [facility] 10-04-2024 10:00-0400 Body weight 79.[address] Lucía Whitten MD Work Phone: [facility] 10-04-2024 10:00-0400 Diastolic blood pressure 77 mm[Hg] Dr. Lucía Whitten MD Work Phone: [facility] 10-04-2024 10:00-0400 Heart rate 90 /min Dr. Lucía Whitten MD Work Phone: [facility] 10-04-2024 10:00-0400 Respiratory rate 16 /min Dr. Lucía Whitten MD Work Phone: [facility] 10-04-2024 10:00-0400 SaO2% (BldA) [Mass fraction] 96 % Dr. Lucía Whitten MD Work Phone: [facility] 10-04-2024 10:00-0400 Systolic blood pressure 129 mm[Hg] Dr. Lucía Whitten MD Work Phone: [facility] 09-28-2024 07:31-0400 Body height 177.[address] Lucía Whitten MD Work Phone: [facility] 09-28-2024 07:31-0400 Body mass index (BMI) [Ratio] 25.4 kg/m2 Dr. Lucía Whitten MD Work Phone: [facility] 09-28-2024 07:31-0400 Body weight 80.[address] Lucía Whitten MD Work Phone: [facility] 09-28-2024 07:31-0400 Diastolic blood pressure 71 mm[Hg] Dr. Lucía Whitten MD Work Phone: [facility] 09-28-2024 07:31-0400 Heart rate 81 /min Dr. Lucía Whitten MD Work Phone: [facility] 09-28-2024 07:31-0400 Respiratory rate 18 /min Dr. Lucía Whitten MD Work Phone: [facility] 09-28-2024 07:31-0400 Systolic blood pressure 127 mm[Hg] Dr. Lucía Whitten MD Work Phone: [facility] 08-05-2024 08:21-0400 Body mass index (BMI) [Ratio] 25.2 kg/m2 Dr. Lucía Whitten MD Work Phone: [facility] 08-05-2024 08:21-0400 Body temperature 97.5 [degF] Dr. Lucía Whitten MD Work Phone: [facility] 08-05-2024 08:21-0400 Body weight 79.[address] Lucía Whitten MD Work Phone: [facility] 08-05-2024 08:21-0400 Diastolic blood pressure 70 mm[Hg] Dr. Lucía Whitten MD Work Phone: [facility] 08-05-2024 08:21-0400 Heart rate 83 /min Dr. Lucía Whitten MD Work Phone: [facility] 08-05-2024 08:21-0400 Respiratory rate 18 /min Dr. Lucía Whitten MD Work Phone: [facility] 08-05-2024 08:21-0400 SaO2% (BldA) [Mass fraction] 98 % Dr. Lucía Whitten MD Work Phone: [facility] 08-05-2024 08:21-0400 Systolic blood pressure 133 mm[Hg] Dr. Lucía Whitten MD Work Phone: [facility] 06-10-2024 03:24-0500 Body temperature 98 [degF] Dr. Lucía Whitten MD Work Phone: [facility] 06-10-2024 03:24-0500 Diastolic blood pressure 82 mm[Hg] Dr. Lucía Whitten MD Work Phone: [facility] 06-10-2024 03:24-0500 Heart rate 110 /min Dr. Lucía Whitten MD Work Phone: [facility] 06-10-2024 03:24-0500 Respiratory rate 20 /min Dr. Lucía Whitten MD Work Phone: [facility] 06-10-2024 03:24-0500 SaO2% (BldA) [Mass fraction] 94 % Dr. Lucía Whitten MD Work Phone: [facility] 06-10-2024 03:24-0500 Systolic blood pressure 142 mm[Hg] Dr. Lucía Whitten MD Work Phone: [facility] 06-10-2024 00:06-0500 Body height 177.[address] Lucía Whitten MD Work Phone: [facility] 06-10-2024 00:06-0500 Body mass index (BMI) [Ratio] 25.5 kg/m2 Dr. Lucía Whitten MD Work Phone: [facility] 06-10-2024 00:06-0500 Body weight 80.[address] Lucía Whitten MD Work Phone: [facility] 05-18-2024 07:55-0500 Body mass index (BMI) [Ratio] 25.4 kg/m2 Dr. Lucía Whitten MD Work Phone: [facility] 05-18-2024 07:55-0500 Body temperature 97.6 [degF] Dr. Lucía Whitten MD Work Phone: [facility] 05-18-2024 07:55-0500 Body weight 78.[address] Lucía Whitten MD Work Phone: [facility] 05-18-2024 07:55-0500 Diastolic blood pressure 75 mm[Hg] Dr. Lucía Whitten MD Work Phone: [facility] 05-18-2024 07:55-0500 Heart rate 105 /min Dr. Lucía Whitten MD Work Phone: [facility] 05-18-2024 07:55-0500 Respiratory rate 18 /min Dr. Lucía Whitten MD Work Phone: [facility] 05-18-2024 07:55-0500 SaO2% (BldA) [Mass fraction] 93 % Dr. Lucía Whitten MD Work Phone: [facility] 05-18-2024 07:55-0500 Systolic blood pressure 133 mm[Hg] Dr. Lucía Whitten MD Work Phone: [facility] 03-30-2024 08:41-0500 Body mass index (BMI) [Ratio] 25.7 kg/m2 Dr. Lucía Whitten MD Work Phone: [facility] 03-30-2024 08:41-0500 Body weight 78.[address] Lucía Whitten MD Work Phone: [facility] 03-30-2024 08:41-0500 Diastolic blood pressure 91 mm[Hg] Dr. Lucía Whitten MD Work Phone: [facility] 03-30-2024 08:41-0500 Heart rate 82 /min Dr. Lucía Whitten MD Work Phone: [facility] 03-30-2024 08:41-0500 Respiratory rate 16 /min Dr. Lucía Whitten MD Work Phone: [facility] 03-30-2024 08:41-0500 Systolic blood pressure 150 mm[Hg] Dr. Lucía Whitten MD Work Phone: [facility] 06-12-2023 09:11-0500 Body height 177.[address] Lucía Whitten Work Phone: [facility] 06-12-2023 09:11-0500 Body mass index (BMI) [Ratio] 25 kg/m2 Dr. Lucía Whitten Work Phone: [facility] 06-12-2023 09:11-0500 Body temperature 98.4 [degF] Dr. Lucía Whitten Work Phone: [facility] 06-12-2023 09:11-0500 Body weight 78.[address] Lucía Whitten Work Phone: [facility] 06-12-2023 09:11-0500 Diastolic blood pressure 85 mm[Hg] Dr. Lucía Whitten Work Phone: [facility] 06-12-2023 09:11-0500 Heart rate 60 /min Dr. Lucía Whitten Work Phone: [facility] 06-12-2023 09:11-0500 Respiratory rate 16 /min Dr. Lucía Whitten Work Phone: [facility] 06-12-2023 09:11-0500 SaO2% (BldA) [Mass fraction] 98 % Dr. Lucía Whitten Work Phone: [facility] 06-12-2023 09:11-0500 Systolic blood pressure 148 mm[Hg] Dr. Lucía Whitten Work Phone: [facility] 04-03-2023 15:26-0500 Body temperature 97.1 [degF] No Primary Care Physician [facility] 04-03-2023 15:26-0500 Diastolic blood pressure 72 mm[Hg] No Primary Care Physician [facility] 04-03-2023 15:26-0500 Heart rate 90 /min No Primary Care Physician [facility] 04-03-2023 15:26-0500 Respiratory rate 16 /min No Primary Care Physician [facility] 04-03-2023 15:26-0500 SaO2% (BldA) [Mass fraction] 99 % No Primary Care Physician [facility] 04-03-2023 15:26-0500 Systolic blood pressure 119 mm[Hg] No Primary Care Physician [facility] 04-03-2023 15:15-0500 Inhaled oxygen flow rate 5 L/min No Primary Care Physician [facility] 04-03-2023 13:12-0500 Body height 177.8 cm No Primary Care Physician [facility] 04-03-2023 13:12-0500 Body mass index (BMI) [Ratio] 24.6 kg/m2 No Primary Care Physician [facility] 04-03-2023 13:12-0500 Body weight 77.8 kg No Primary Care Physician [facility] 03-10-2023 14:26-0500 Body mass index (BMI) [Ratio] 26.1 kg/m2 No Primary Care Physician [facility] 03-10-2023 14:26-0500 Body weight 80.28 kg No Primary Care Physician [facility] 02-26-2023 08:57-0400 Body height 175.26 cm No Primary Care Physician [facility] 02-26-2023 08:57-0400 Body mass index (BMI) [Ratio] 25.9 kg/m2 No Primary Care Physician [facility] 02-26-2023 08:57-0400 Body temperature 98.3 [degF] No Primary Care Physician [facility] 02-26-2023 08:57-0400 Body weight 79.83 kg No Primary Care Physician [facility] 02-26-2023 08:57-0400 Diastolic blood pressure 80 mm[Hg] No Primary Care Physician [facility] 02-26-2023 08:57-0400 Heart rate 96 /min No Primary Care Physician [facility] 02-26-2023 08:57-0400 Respiratory rate 16 /min No Primary Care Physician [facility] 02-26-2023 08:57-0400 SaO2% (BldA) [Mass fraction] 95 % No Primary Care Physician [facility] 02-26-2023 08:57-0400 Systolic blood pressure 140 mm[Hg] No Primary Care Physician [facility] 12-31-2022 08:29-0400 Body mass index (BMI) [Ratio] 25.5 kg/m2 No Primary Care Physician [facility] 12-31-2022 08:29-0400 Body temperature 97.4 [degF] No Primary Care Physician [facility] 12-31-2022 08:29-0400 Body weight 78.47 kg No Primary Care Physician [facility] 12-31-2022 08:29-0400 Diastolic blood pressure 84 mm[Hg] No Primary Care Physician [facility] 12-31-2022 08:29-0400 Heart rate 74 /min No Primary Care Physician [facility] 12-31-2022 08:29-0400 Respiratory rate 18 /min No Primary Care Physician [facility] 12-31-2022 08:29-0400 SaO2% (BldA) [Mass fraction] 96 % No Primary Care Physician [facility] 12-31-2022 08:29-0400 Systolic blood pressure 132 mm[Hg] No Primary Care Physician [facility] 07-09-2022 00:15-0400 Diastolic blood pressure 96 mm[Hg] Dr. Regis Souza Work Phone: [facility] 07-09-2022 00:15-0400 Heart rate 97 /min Dr. Regis Souza Work Phone: [facility] 07-09-2022 00:15-0400 Respiratory rate 18 /min Dr. Regis Souza Work Phone: [facility] 07-09-2022 00:15-0400 SaO2% (BldA) [Mass fraction] 93 % Dr. Regis Souza Work Phone: [facility] 07-09-2022 00:15-0400 Systolic blood pressure 109 mm[Hg] Dr. Regis Souza Work Phone: [facility] 07-08-2022 22:19-0400 Body temperature 97.7 [degF] Dr. Regis Souza Work Phone: [facility] 07-08-2022 21:53-0400 Inhaled oxygen flow rate 2 L/min Dr. Regis Souza Work Phone: [facility] 07-08-2022 21:46-0400 Body height 175.[address] Regis Souza Work Phone: [facility] 07-08-2022 21:46-0400 Body mass index (BMI) [Ratio] 26.9 kg/m2 Dr. Regis Souza Work Phone: [facility] 07-08-2022 21:46-0400 Body weight 82.[address] Regis Souza Work Phone: [facility] 06-27-2022 10:15-0500 Body mass index (BMI) [Ratio] 25.9 kg/m2 Dr. Regis Souza Work Phone: [facility] 06-27-2022 10:15-0500 Body temperature 97.5 [degF] Dr. Regis Souza Work Phone: [facility] 06-27-2022 10:15-0500 Body weight 79.[address] Regis Souza Work Phone: [facility] 06-27-2022 10:15-0500 Diastolic blood pressure 97 mm[Hg] Dr. Regis Souza Work Phone: [facility] 06-27-2022 10:15-0500 Heart rate 93 /min Dr. Regis Souza Work Phone: [facility] 06-27-2022 10:15-0500 Respiratory rate 18 /min Dr. Regis Souza Work Phone: [facility] 06-27-2022 10:15-0500 SaO2% (BldA) [Mass fraction] 98 % Dr. Regis Souza Work Phone: [facility] 06-27-2022 10:15-0500 Systolic blood pressure 176 mm[Hg] Dr. Regis Souza Work Phone: [facility] 11-24-2021 17:17-0400 Diastolic blood pressure 98 mm[Hg] [facility] Work Phone: 11-24-2021 17:17-0400 Heart rate 78 /min [facility] Work Phone: 11-24-2021 17:17-0400 Respiratory rate 16 /min [facility] Work Phone: 11-24-2021 17:17-0400 SaO2% (BldA) [Mass fraction] 98 % [facility] Work Phone: 11-24-2021 17:17-0400 Systolic blood pressure 157 mm[Hg] [facility] Work Phone: 11-24-2021 14:05-0400 Body height 175.26 cm [facility] Work Phone: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 July 08, 2022 8:50pm Power of Electronic Publications Specialist Yes July 08 8:50pm Advance Directive Response Recorded Date/ Time Name of Medical Power of Electronic Publications Specialist March 31, 2023 10:42am Living Will Yes March 31 10:42am Power of Electronic Publications Specialist Yes March 31, 2023 10:42am Advance Directive Response Recorded Date/ Time Living Will Yes December 12 1:30pm Power of Electronic Publications Specialist Yes December 12, 024 1:30pm Living Will Yes June 10 025 1:17am Power of Electronic Publications Specialist Yes June 10, 2024 1:17am Name of Medical Power of Electronic Publications Specialist Ana Lilia luo June 10, 2024 1:17am Advance Directive Response Recorded Date/ Time Living Will Yes December 12 1:30pm Do you have a Healthcare Pow er of Electronic Publications Specialist? Yes December 13, 2023 1:30pm Living Will Yes June 10 025 1:17am Do you have a Healthcare Pow er of Electronic Publications Specialist? Yes June 10, 2024 1:17am Name of Medical Power of Electronic Publications Specialist Ana Lilia luo June 10, 2024 1:17am Summary Purpose Additional Source Comments Goals (unrecognized section and content) Goals may be documented in a n alternate sectionGoals may be documented in an alternate sectionGoals may be documented in an alternate sectionGoals may be documented in an alternate sectionGoals may be documented in an alternate sectionGoals may be documented in an alternate sectionGoals may be documented in an alternate sectionGoals may be documented in an alternate sectionGoals may be documented in an alternate sectionGoals may be documented in an alternate sectionGoals may be documented in an alternate sectionGoals may be documented in an alternate section Care Teams (unrecognized sec tion and content) Team Status: Active Member Role Status Dates Dr. Regis Souza MD Family Provider Active No Primary Care Physician Primary Care Provider Active Team Status: Inactive Member Role Status Dates Kierra Delgado [employer]ER, [employer] WORKER-C Attending Provider, Referrin g Provider Active No Primary Care Physician Primary Care Provider Active Team Status: Inactive Member Role Status Dates Dr. Regis Souza MD Referring Provider Active Dr. Murtaza Tolentino MD Attending Provider Active No Primary Care Physician Primary Care Provider Active Team Status: Inactive Member Role Status Dates No Primary Care Physician Primary Care Provider Active Dr. Charlie Morrison DO Emergency Provider Active Team Status: Active Member Role Status Dates Dr. Regis Souza MD Family Provider Active Dr. Lucía Whitten MD Primary Care Provider Active Team Status: Inactive Member Role Status Dates No Primary Care Physician Referring Provider Active Kierra Delgado NP, [employer]EE[employer] WORKER-C Attending Provider Active Dr. Lucía Whitten MD Primary Care Provider Active Team Status: Inactive Member Role Status Dates Dr. Lucía Whitten MD Primary Care Provider, Attendi ng Provider Active Team Status: Inactive Member Role Status Dates Dr. Lucía Whitten MD Primary Care Pro vider, Attending Provider, Referring Provider Active Team Status: Active Member Role Status Dates Dr. Lucía Whitten MD Primary Care Provider Active [facility] Attending Provider Active Team Status: Active Member Role Status Dates Dr. Lucía Whitten MD Primary Care Provider, Referri ng Provider Active Dr. Emeterio Staley MD Attending Provider, Other Provider Active Team Status: Inactive Member Role Status Dates Dr. Lucía Whitten MD Primary Care Provider, Referri ng Provider Active Dr. Emeterio Staley MD Attending Provider Active Team Status: Inactive Member Role Status Dates Dr. Lucía Whitten MD Primary Care Provider Active Kierra Delgado NP, [employer] WORKER-C Attending Provider, Referrin g Provider Active Team Status: Inactive Member Role Status Dates Dr. Lucía Whitten MD Primary Care Provider, Referri ng Provider Active Kierra Delgado [employer] WORKER, BEE[employer] WORKER-C Attending Provider Active Team Status: Active Member Role Status Dates Dr. Lucía Whitten MD Primary Care Provider Active Team Status: Inactive Member Role Status Dates Dr. Lucía Whitten MD Primary Care Provider Active Start: March 30, 2024 End: March 30, 2024 Dr. Lucía Whitten MD Referring Provider Active Start: March 30, 2024 End: March 30, 2024 Dr. Lynne Dixon MD Attending Provider Active Start: March 30, 2024 End: March 30, 2024 Team Status: Inactive Member Role Status Dates Dr. Lucía Whitten MD Primary Care Provider Active Start: May 18, 2024 End: May 18, 2024 Dr. Lucía Whitten MD Referring Provider Active Start: May 18, 2024 End: May 18, 2024 Kierra Delgado [employer]EE[employer] WORKER, BEE[employer] F[employer] WORKER-C Attending Provider Active Start: May 18, 2024 End: May 18, 2024 Team Status: Inactive Member Role Status Dates Dr. Lucía Whitten MD Primary Care Provider Active Start: May 18, 2024 End: May 18, 2024 Kierra Delgado [employer] WORKER, BEE[employer] WORKER-C Attending Provider Active Start: May 18, 2024 End: May 18, 2024 Kierra Delgado BEEF [employer] F[employer] WORKER, BEE[employer] WORKER-C Referring Provider Active Start: May 18, 2024 End: May 18, 2024 Team Status: Inactive Member Role Status Dates Dr. Lucía Whitten MD Primary Care Provider Active Start: June 10, 2024 End: June 10, 2024 Dr. Manny Varela MD Attending Provider Active S tart: June 10, 2024 End: June 10, 2024 Dr. Manny Varela MD Emergency Provider Active S tart: June 10, 2024 End: June 10, 2024 Team Status: Inactive Member Role Status Dates Dr. Lucía Whitten MD Primary Care Provider Active Start: July 05, 2024 End: July 05, 2024 Kierra Delgado [employer] WORKER, BEE[employer] WORKER-C Attending Provider Active Start: July 05, 2024 End: July 05, 2024 Kierra Delgado BEE[employer] WORKER, BEE[employer] WORKER-C Referring Provider Active Start: July 05, 2024 End: July 05, 2024 Team Status: Inactive Member Role Status Dates Dr. Lucía Whitten MD Primary Care Provider Active Start: August 05, 2024 End: August 05, 2024 Dr. Lucía Whitten MD Referring Provider Active Start: August 05, 2024 End: August 05, 2024 Kierra Delgado [employer] WORKER, BEE[employer] WORKER-C Attending Provider Active Start: August 05, 2024 End: August 05, 2024 Team Status: Inactive Member Role Status Dates Dr. Lucía Whitten MD Primary Care Provider Active Start: September 28, 2024 End: September 28, 2024 Dr. Lucía Whitten MD Referring Provider Active Start: September 28, 2024 End: September 28, 2024 Dr. Lynne Dixon MD Attending Provider Active Start: September 28, 2024 End: September 28, 2024 Team Status: Inactive Member Role Status Dates Dr. Lucía Whitten MD Primary Care Provider Active Start: October 04, 2024 End: October 04, 2024 Dr. Lucía Whitten MD Attending Provider Active Start: October 04, 2024 End: October 04, 2024 Team Status: Active Member Role/Relationship Status Dates Dr. Lucía Whitten MD Primary care physician Active Team Status: Inactive Member Role/Relationship Status Dates Dr. Lucía Whitten MD Primary care physician Active Start: September 28, 2024 End: September 28, 2024 Dr. Lucía Whitten MD Referring Provider Active Start: September 28, 2024 End: September 28, 2024 Dr. Lynne Dixon MD Attending physician Active Start: September 28, 2024 End: September 28, 2024 Team Status: Inactive Member Role/Relationship Status Dates Dr. Lucía Whitten MD Primary care physician Active Start: October 04, 2024 End: October 04, 2024 Dr. Lucía Whitten MD Attending physician Active Start: October 04, 2024 End: October 04, 2024 Team Status: Inactive Member Role/Relationship Status Dates Dr. Lucía Whitten MD Primary care physician Active Start: January 05, 2025 End: January 05, 2025 Kierra Delgado [employer] WORKER, BEE[employer] F[employer] WORKER-C Attending physician Active Start: January 05, 2025 End: January 05, 2025 Kierra Delgado BEE[employer] F[employer] WORKER, BEEF [employer] F[employer] WORKER-C Referring Provider Active Start: January 05, 2025 End: January 05, 2025 Team Status: Active Member Role/Relationship Status Dates Dr. Lucía Whitten MD Primary care physician Active Start: January 06, 2025 Kierra Delgado [employer]EE[employer] WORKER, BEEF [employer] F[employer] WORKER-C Referring Provider Active Start: January 06, 2025 Kierra Delgado BEE[employer] WORKER, B[employer] WORKER-C Nurse Practitioner Active Start: January 06, 2025 Dr. Naveed Guzman DO Attending physician Active Start: January 06, 2025 Team Status: Active Member Role/Relationship Status Dates Dr. Lucía Whitten MD Primary care physician Active Start: January 13, 2025 Kierra Delgado BEE[employer] WORKER, BEEF [employer] F[employer] WORKER-C Attending physician Active Start: January 13, 2025 Kierra Delgado BEEF [employer]LE F[employer] WORKER, BEEF C[employer]LE F[employer] WORKER-C Referring Provider Active Start: January 13, 2025 Team Status: Inactive Member Role/Relationship Status Dates Dr. Lucía Whitten MD Primary care physician Active Start: January 13, 2025 End: January 13, 2025 Kierra Delgado BEE[employer] F[employer] WORKER, BEEF [employer] F[employer] WORKER-C Attending physician Active Start: January 13, 2025 End: January 13, 2025 Kierra Delgado BEEF [employer] F[employer] WORKER, BEEF C[employer]LE F[employer] WORKER-C Referring Provider Active Start: January 13, 2025 End: January 13, 2025 Team Status: Inactive Member Role/Relationship Status Dates Dr. 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 Lucía Whitten MD Primary care physician Active Start: January 05, 2025 End: January 05, 2025 Kierra Delgado BEE[employer] F[employer] WORKER, BEEF [employer] F[employer] WORKER-C Attending physician Active Start: January 05, 2025 End: January 05, 2025 Kierra Delgado BEEF C[employer]LE FARM WORKER, BEEF C[employer]LE FARM WORKER-C Referring Provider Active Start: January 05, 2025 End: January 05, 2025 Team Status: Active Member Role/Relationship Status Dates Dr. Lucía Whitten MD Primary care physician Active Start: January 06, 2025 Kierra Delgado BEE[employer] F[employer] WORKER, BEEF [employer] F[employer] WORKER-C Referring Provider Active Start: January 06, 2025 Kierra Delgado BEE[employer] F[employer] WORKER, BEE[employer] WORKER-C Nurse Practitioner Active Start: January 06, 2025 Dr. Naveed Guzman DO Attending physician Active Start: January 06, 2025 Team Status: Inactive Member Role/Relationship Status Dates Dr. Lucía Whitten MD Primary care physician Active Start: January 13, 2025 End: January 13, 2025 Kierra Delgado NP, BEEF [employer] WORKER-C Attending physician Active Start: January 13, 2025 End: January 13, 2025 Kierra Delgado BEEF C[employer]LE FARM WORKER, BEEF C[employer]LE F[employer] WORKER-C Referring Provider Active Start: January 13, 2025 End: January 13, 2025 Team Status: Active Member Role/Relationship Status Dates Dr. Lucía Whitten MD Primary care physician Active Start: January 13, 2025 Dr. Naveed Guzman DO Attending physician Active Start: January 13, 2025 Kierra Delgado NP, BEEF [employer] F[employer] WORKER-C Referring Provider Active Start: January 13, 2025 Team Status: Inactive Member Role/Relationship Status Dates Dr. Lucía Whitten MD Primary care physician Active Start: January 20, 2025 End: January 20, 2025 Kierra Delgado NP, BEEF [employer] F[employer] WORKER-C Attending physician Active Start: January 20, 2025 End: January 20, 2025 Kierra Delgado NP, BEEF [employer] F[employer] WORKER-C Referring Provider Active Start: January 20, 2025 End: January 20, 2025 Team Status: Inactive Member Role/Relationship Status Dates Dr. Lucía Whitten MD Primary care physician Active Start: February 10, 2025 End: February 10, 2025 Dr. Lucía Whitten MD Referring Provider Active Start: February 10, 2025 End: February 10, 2025 Kierra Delgado NP, BEE[employer] WORKER-C Attending physician Active Start: February 10, 2025 End: February 10, 2025 Team Status: Inactive Member Role/Relationship Status Dates Dr. Lucía Whitten MD Primary care physician Active Start: February 10, 2025 End: February 10, 2025 Kierra Delgado NP, BEEF [employer] F[employer] WORKER-C Attending physician Active Start: February 10, 2025 End: February 10, 2025 Kierra Delgado NP, BEEF [employer] F[employer] WORKER-C Referring Provider Active Start: February 10, 2025 End: February 10, 2025 (unrecognized sect ion and content) No Status Records FoundNo Status Records Found INFORMATION SOURCE (unrecogn ized section and content) DATE CREATED AUTHOR 01/03/2024 [facility] DATE CREATED AUTHOR 'S THERESA RECIO 02/22/2025 [facility] FOR RECORDS PERTAINING TO PATIENTS WHO ARE OR HAVE BEEN ENROLLED IN A CHEMICAL DEPENDENCY/SUBSTANCEABUSE PROGRAM, SOME INFORMATION MAY BE OMITTED. This clinical summary was aggregated from multiple sources. Caution should be exercised in using it in the provision of clinical care. This summary normalizes information from multiple sources, and as a consequence, information in this document may materially change the coding, format and clinical context of patient data. In addition, data may be omitted in some cases. CLINICAL DECISIONS SHOULD BE BASED ON THE PRIMARY CLINICAL RECORDS. [facility] [employer] [facility]. provides no warranty or guarantee of the accuracy or completeness of information in this document.
[2025-03-21 04:00] VITALS: BP 138/73; PULSE 74; RESP 20; O2SAT 94
[2025-03-21 04:25] LABS: Anion Gap 13 (5-15); BUN 18 mg/dL (4-19); BUN/Creat Ratio 15.3 RATIO (10-20); Calcium,Total 9.2 mg/dL (7.6-11.0); Carbon Dioxide 24.1 mmol/L (21.0-32.0); Chloride 102 mmol/L (98-108); Estimated Creatinine Clearance 53.33 ml/min (50-250); Glucose 108 mg/dL (70-99); Magnesium 2.0 mg/dL (1.5-2.2); Potassium 4.0 mmol/L (3.3-5.1); Troponin T High Sensitivity 18 ng/L (<=22)
[2025-03-21 05:00] VITALS: BP 131/74; PULSE 62; RESP 18; O2SAT 97
[2025-03-21 05:07] LABS: Troponin T High Sens 2 HR 14 ng/L (<=22)
[2025-03-21] MEDS: Lidocaine 2% Viscous15 ML UDC 15 ML PO (05:30)
[2025-03-21 05:35] VITALS: BP 131/74; PULSE 62; RESP 18; TEMP 36.4; O2SAT 97
== END 2025-03-21 05:35 | disposition home or self-care (01) ==
PROVIDERS: Emergency Provider Emergency Medicine; PCP Internal Medicine; Visit Provider Emergency Medicine
DX: R07.9 Chest pain, unspecified (principal); J44.9 Chronic obstructive pulmonary disease, unspecified; I49.3 Ventricular premature depolarization; I10 Essential (primary) hypertension; Z79.51 Long term (current) use of inhaled steroids; Z79.82 Long term (current) use of aspirin; Z86.16 Personal history of COVID-19
CPT/HCPCS: 71045; 80048; 83735; 84443; 84484; 85025; 93005; 96374; 99283; A4216